=== PATIENT | male | born 1940 | race Caucasian/White ===

== ENCOUNTER → 2018-03-07 13:59 | Outpatient (CLI) | payer MEDICARE, OTHER, SELFPAY ==
[2018-03-07 15:01] LABS: Absolute Lymphocyte Count 0.91 X10^3/ul (0.83-4.51); Absolute Neutrophil Count 5.5 X10^3/uL (2.0-7.7); Basophil# 0.02 X10^3/uL; Basophil% 0.3 % (0-1); Eosinophil# 0.04 X10^3/uL; Eosinophils% 0.6 % (0-5); Hematocrit 45.6 % (40-54); Lymphocyte # 0.91 X10^3/ul (4.0); Lymphocyte % 12.7 % (19-41); Mean Corp Hgb Conc 32.9 g/gl (32-36); Mean Corpuscular Hgb 30.5 pg (27.0-32.0); Mean Corpuscular Volume 92.9 fL (80-94); Mean Platelet Vol. 11.4 fl (6.2-12.0); Monocyte% 9.8 % (0-10); Neutrophil # 5.45 X10^3/uL (2.7-7.7); Neutrophil % 76.3 % (47-70); Platelet Count 172 K/mm3 (150-450); RBC Distribution Width CV 13.2 % (11.6-14.6); RBC Distribution Width SD 44.3 fl (35.1-43.9); Red Blood Count 4.91 M/mm3 (4.6-6.2); White Blood Count 7.1 K/mm3 (4.4-11.0)
[2018-03-07 15:02] LABS: POSITIVE COUNT NO; POSITIVE DIFFERENTIAL NO; POSITIVE MORPHOLOGY NO
== END ==
PROVIDERS: Family Provider Family Medicine; PCP Family Medicine; Visit Provider Physician Assistant Medical
DX: S40.021A Contusion of right upper arm, initial encounter (principal); S40.022A Contusion of left upper arm, initial encounter
CPT/HCPCS: 36415; 85025

== ENCOUNTER 2018-04-16 19:15 | Inpatient (IN) | payer MEDICARE, OTHER, SELFPAY ==
[2018-04-16 19:23] VITALS: BMI 30.2
[2018-04-16 19:29] VITALS: BMI 30.2
[2018-04-16 19:34] VITALS: BP 121/66; PULSE 63; RESP 20; TEMP 37.4; O2SAT 97
--- NOTE | 2018-04-16 19:52 | HP.PCM_ITS ---
Problem List (1) Nephrolithiasis Status: Acute (2) Chronic systolic (congestive) heart failure Status: Chronic (3) Ischemic cardiomyopathy Status: Chronic Comment: EF 30-35% per echo and Muga OctoberNovember 2011; 45% per echo October 2012 (4) History of coronary artery bypass graft x 2 Status: Chronic Comment: ICD subsequently removed concomittently with CABG procedure and pericardial patch perforation repair on 01/14/2011 @ [facility], Dr. Brett Wilkins: STEARNS to LAD and SVG to OM 1 (5) BPH (benign prostatic hyperplasia) Status: Chronic (6) Hypertension Status: Chronic Qualifiers: Hypertension type: essential hypertension Qualified Code(s): I10 - Essential (primary) hypertension (7) COPD (chronic obstructive pulmonary disease) Status: Chronic (8) Hyperlipidemia Status: Chronic Qualifiers: Hyperlipidemia type: pure hypercholesterolemia Qualified Code(s): E78.00 - Pure hypercholesterolemia, unspecified; E78.0 - Pure hypercholesterolemia History of Present Illness Date of Admission: 04/16/18 Chief Complaint: Left flank pain The patient is a 77 year old M with a PMH as above, presenting from [facility] ER with a kidney stone. Yesterday he presented and had a CT abdomen which demonstrated a 6 mm stone on the left. He was sent home with expectant management, however today the pain worsened and he became diaphoretic and feverish so he returned to the ER and he was found to have a slight leukocytosis with a non-infectious UA. He was transferred here because there is no urology at [place] and he refused transfer to [place]. He states that he feels ok but still has significant flank pain on the left. 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 Onur Duarte @ [facility] BPH (benign prostatic hyperplasia) (Chronic) Hypertension (Chronic) Atherosclerotic heart disease of [place] coronary artery without angina pectoris (Chronic) History of CABG: STEARNS to LAD, SVG to OM 1 History of TIA (transient ischemic attack) (Chronic) Circa [id number], prior to CABG, etc. 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) I74.2 Left upper extremitiy 2010 after CABG Chronic systolic (congestive) heart failure (Chronic) I50.22 Ischemic cardiomyopathy (Chronic) I25.5 EF 30-35% per echo and Muga October and November 2011; 45%per echo October 2012 History of bacterial endocarditis (Chronic) Z86.79 Related to ICD wire: 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 Pt states I think it was really heat stroke COPD (chronic obstructive pulmonary disease) (Chronic) J44.9 Hyperlipidemia (Chronic) E78.5 Allergies No Known Allergies Allergy (Verified 03/07/18 13:20) Home Medications: Ambulatory Orders Medication Instructions Recorded Furosemide [Lasix] 20 mg PO DAILY PRN PRN 04/29/16 Lisinopril [Zestril] 10 mg PO QHS 04/29/16 Pravastatin [Pravachol] 40 mg PO QHS 04/29/16 acetaminophen 325 mg tablet 325 mg PO Q8H PRN PRN tab 11/08/17 levothyroxine 125 mcg tablet 125 mcg PO DAILY 11/08/17 nitroglycerin 0.4 mg sublingual 0.4 mg SUBLINGUAL Q5-15M PRN 11/08/17 tablet Amiodarone HCl 200 mg PO DAILY 04/16/18 Warfarin Sodium [Coumadin] 1.5 mg PO DINNER 04/16/18 Surgical History: Surgical History (Last Updated 03/07/18 @ 13:21 by Juanis Land) History of coronary artery bypass graft x 2 (Chronic) Z95.1 ICD subsequently removed concomittently with CABG procedure and pericardial patch perforation repair on 01/14/2011 @ [facility], Dr. Brett Wilkins: STEARNS to LAD and SVG to OM 1 History of right and left heart catheterization (Chronic) Z98.890 12/13/[address] Onur Duarte @ [facility] History of tonsillectomy Z90.89 Lives: Spouse/ Significant Other Smoking Status: Former smoker Alcohol: None Drugs: None - *Family History Maternal Family History: Family History (Last Updated 03/07/18 @ 13:22 by Juanis Land) Father Colon cancer Mother Myocardial infarction CAD (coronary artery disease) Brother CAD (coronary artery disease) Myocardial infarction Brother CAD (coronary artery disease) Myocardial infarction Review of Systems Constitutional: Reports: Chills, Fever. Denies: Anorexia, Weight Change HEENT: Denies: Head Aches, Sinus Congestion, Sinus Drainage Cardiovascular: Denies: Chest Pain, Palpitations Respiratory: Denies: Cough, Shortness of breath at rest, Sputum production Gastrointestinal: Reports: - - Left flank pain. Denies: Abdominal Pain, Nausea , Vomiting Genitourinary: Denies: Dysuria Musculoskeletal: Denies: Joint Pain, Joint Tenderness Skin: Denies: Rash, Wounds Neurological: Denies: Numbness, Tingling, Focal weakness Psychiatric: Denies: Anxiety, Depression Hematologic/ Lymphatic: Denies: Easy Bruising, Easy Bleeding VTE Information - Inpt Only VTE Present on Admission: No Patient Problems: Active and Suspected Problems (Last Updated 12/13/17 @ 11:41 by Manuela Tena) Nephrolithiasis (Acute) - Physical Exam General: Alert, Oriented x3, Cooperative, No apparent distress HEENT: Atraumatic, PERRLA, EOMI, Normocephalic Oral: Dry Mucosa Neck: Supple, No JVD Lungs: Clear to auscultation, Normal air movement, No rhonchi, No wheeze, No rales Cardiovascular: Regular rate, Regular Rhythm, Normal S1, Normal S2, No murmurs Abdomen: Soft, Non Tender, Non-Distended, No Hepato-splenomegaly, - - left CVA tenderness Extremities: No edema, Capillary Refill Less than 3 Seconds Skin: No rashes, No breakdown Musculoskeletal: No Tenderness to Palpation of Joints or Extremities Neurological: Neuro grossly intact, Sensory exam intact to light touch and pain Psych/Mental Status: Normal Affect, Appropriate Vital Signs Temp Pulse Resp BP Pulse Ox 99.4 F H 63 20 H 121/66 H 97 04/16/18 19:34 04/16/18 19:34 04/16/18 19:34 04/16/18 19:34 04/16/18 19:34 Oxygen Delivery Method Room Air Weight: 187 lb 6.4 oz Body Mass Index (BMI) 30.2 Assessment/Plan All Active Problems (Last Updated 12/13/17 @ 11:41 by Manuela Tena) Nephrolithiasis (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 Left Nephrolithiasis - Will start on flomax and IVF - Pain control - c/s to Urology - Given he is afebrile and his UA is clean, will hold abx for now 2. CAD s/p CABG/chronic sCHF/HTN - Currently stable, will gently hydrate - c/w his home medications, hold his lasix while hydrating 3. LUE DVT history - C/w coumadin and monitor INR DVT: Coumadin Diet: Cardiac Code Visit Inpatient E&M: 69242 Init Hosp L3
[2018-04-16] MEDS: 0.9% Normal Saline 1,000 ML 100 ML IV (20:18)
[2018-04-16] MEDS: Pravastatin 40 MG Tablet PO (22:53)
[2018-04-16] MEDS: Lisinopril 10 MG Tablet PO (23:14)
[2018-04-16 23:29] VITALS: BP 120/55; PULSE 59; RESP 18; TEMP 36.6; O2SAT 98
[2018-04-17] VITALS (11 sets, daily range): BP systolic 132–150; BP diastolic 60–75; PULSE 53–57; RESP 16–18; TEMP 36.1–37.1; O2SAT 94–99; BMI 30.2
[2018-04-17] MEDS: 0.9% Normal Saline 1,000 ML 100 ML IV ×2 (05:21→13:01)
[2018-04-17] MEDS: Levothyroxine 125 MCG Tablet PO (05:21)
[2018-04-17 06:25] LABS: Absolute Neutrophil Count 4.1 X10^3/uL (2.0-7.7); Basophil# 0.01 X10^3/uL; Basophil% 0.2 % (0-1); Eosinophil# 0.05 X10^3/uL; Eosinophils% 0.8 % (0-5); Hematocrit 37.2 % (40-54); Lymphocyte % 16.7 % (19-41); Mean Corp Hgb Conc 32.3 g/gl (32-36); Mean Platelet Vol. 11.6 fl (6.2-12.0); Monocyte% 13.4 % (0-10); Neutrophil # 4.11 X10^3/uL (2.7-7.7); Neutrophil % 68.7 % (47-70); Platelet Count 109 K/mm3 (150-450); RBC Distribution Width SD 43.1 fl (35.1-43.9)
[2018-04-17 06:35] LABS: POSITIVE COUNT NO; POSITIVE DIFFERENTIAL NO; POSITIVE MORPHOLOGY NO
[2018-04-17 06:36] LABS: Anion Gap 8 (5-15); BUN 27 mg/dL (7-18); BUN/Creat Ratio 14.2 RATIO (10-20); Calcium,Total 7.8 mg/dL (8.5-10.1); Chloride 110 mmol/L (98-107); EST Glomerular Filtration Rate 37 mL/min (>60); Est Glom Filt Rate - Afr Amer 44 mL/min (>60); Estimated Creatinine Clearance 28.45 ml/min; Glucose 87 mg/dL (74-106); Potassium 4.4 mmol/L (3.5-5.1); Sodium Level 142 mmol/L (136-145)
[2018-04-17 06:42] LABS: International Normalized Ratio 2.2; Prothrombin Time (Protime)PT. 24.9 SECONDS (11.7-14.9)
--- NOTE | 2018-04-17 07:44 | RAD_ITS ---
STUDY: X-RAY - ABDOMEN/PELVIS REASON FOR EXAM: Male, 77 years old. Left-sided stone. TECHNIQUE: Two AP supine views of the abdomen and pelvis. COMPARISON: None. FINDINGS: Mild degree of increased markings at the lung bases suggestive of atelectasis and/or scarring. There is a moderate amount of colonic fecal material. There is a 3.4 mm calcification in the left hemipelvis. This may represent a distal left ureteral calculus at the ureterovesical junction. Normal soft tissue structures. There are diffuse degenerative changes of the visualized lumbar spine. RAD/Abdomen Single View IMPRESSION: 3.4 mm rounded calcific density in the left hemipelvis as described. This may represent a small calculus at the ureterovesical junction. Electronically Signed: Austen Wheat MD at 8:57 EDT Tel [phone], Service support ,
--- NOTE | 2018-04-17 07:44 | PCM.CONS.U ---
Problem List (1) Nephrolithiasis Status: Acute Comment: left side Reason for Consult Date of Consultation: 04/17/18 Reason for Consultation: left kidney stone. History of Present Illness: The patient is a 77 year old male who presented to the [facility] with kidney stone on the left side, patient was transferred to [facility] for further care. He is clinically stable complains of pain on the left side and pain radiating down to his groin, I have to review the CAT scan from the outside hospital, plan to get a KUB this morning and then plan for intervention later today. 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 (see CABG) History of right and left heart catheterization (Chronic) 12/13/[address] Onur Duarte @ [facility] BPH (benign prostatic hyperplasia) (Chronic) Hypertension (Chronic) Atherosclerotic heart disease of [place] coronary artery without angina pectoris (Chronic) History of CABG: STEARNS to LAD, SVG to OM 1 History of TIA (transient ischemic attack) (Chronic) Circa [id number], prior to CABG, etc. 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 (see CABG) BPH (benign prostatic hyperplasia) (Chronic) N40.0 Hypertension (Chronic) I10 Atherosclerotic heart disease of [place] coronary artery without angina pectoris (Chronic) I25.10 History of CABG: STEARNS to LAD, SVG to OM 1 History of TIA (transient ischemic attack) (Chronic) Z86.73 Circa 5858-8749, prior to CABG, etc. Pt states I think it was really heat stroke COPD (chronic obstructive pulmonary disease) (Chronic) J44.9 Hyperlipidemia (Chronic) E78.5 Allergies No Known Allergies Allergy (Verified 03/07/18 13:20) Home Medications: Ambulatory Orders Medication Instructions Recorded Furosemide [Lasix] 20 mg PO DAILY PRN PRN 04/29/16 Lisinopril [Zestril] 10 mg PO QHS 04/29/16 Pravastatin [Pravachol] 40 mg PO QHS 04/29/16 acetaminophen 325 mg tablet 325 mg PO Q8H PRN PRN tab 11/08/17 levothyroxine 125 mcg tablet 125 mcg PO DAILY 11/08/17 nitroglycerin 0.4 mg sublingual 0.4 mg SUBLINGUAL Q5-15M PRN 11/08/17 tablet Amiodarone HCl 200 mg PO DAILY 04/16/18 Warfarin Sodium [Coumadin] 1.5 mg PO DINNER 04/16/18 Surgical History: Surgical History (Last Updated 03/07/18 @ 13:21 by Juanis Land) History of coronary artery bypass graft x 2 (Chronic) Z95.1 ICD subsequently removed concomittently with CABG procedure and pericardial patch perforation repair on 01/14/2011 @ [facility], Dr. Brett Wilkins: STEARNS to LAD and SVG to OM 1 History of right and left heart catheterization (Chronic) Z98.890 12/13/[address] Onur Duarte @ [facility] History of tonsillectomy Z90.89 Surgical History: noncontributory Psychiatric History: No pertinent psych hx Lives: Spouse/ Significant Other Smoking Status: Former smoker Alcohol: None Drugs: None - *Family History Maternal Family History: Family History (Last Updated 03/07/18 @ 13:22 by Juanis Land) Father Colon cancer Mother Myocardial infarction CAD (coronary artery disease) Brother CAD (coronary artery disease) Myocardial infarction Brother CAD (coronary artery disease) Myocardial infarction Review of Systems Constitutional: Denies: Chills, Fever, Weight Change HEENT: Denies: Head Aches, Sinus Congestion, Sinus Drainage Cardiovascular: Denies: Chest Pain, Palpitations Respiratory: Denies: Cough, Shortness of breath at rest, Sputum production Gastrointestinal: Denies: Abdominal Pain, Nausea, Vomiting Genitourinary: Denies: Dysuria Musculoskeletal: Denies: Joint Pain, Joint Tenderness Skin: Denies: Rash, Wounds Neurological: Denies: Numbness, Tingling, Focal weakness Psychiatric: Denies: Anxiety, Depression, Homicidal Ideations, Suicidal Ideations Hematologic/ Lymphatic: Denies: Easy Bruising, Easy Bleeding Physical Exam - Physical Exam Vital Signs Temp 98.7 F 04/17/18 05:19 Pulse 55 L 04/17/18 05:19 Resp 18 04/17/18 05:19 BP 132/60 H 04/17/18 05:19 Pulse Ox 94 04/17/18 05:19 Intake & Output 04/15/18 04/16/18 04/17/18 23:59 23:59 23:59 Intake Total 995 / 995 Output Total 1550 / 1550 Balance -555 / -555 Weight: 85.003 kg 84.4 kg Intake: Oral 100 / 100 IV fluid/meds 895 / 895 Output: Urine 625 / 625 #2 Urine 925 / 925 Other: Number of Voids 2 General: Alert, Oriented x3 HEENT: Atraumatic Oral: Moist Mucosa Neck: Supple Lungs: Normal air movement Cardiovascular: Regular rate, Regular Rhythm Abdomen: Soft, Obese Rectal: Exam deferred Laboratory Tests Past 24 Hrs 04/17/18 04/17/18 04/17/18 05:48 05:48 05:48 WBC 6.0 RBC 4.00 L Hgb 12.0 L Hct 37.2 L MCV 93.0 MCH 30.0 MCHC 32.3 RDW 13.0 RDW Differential 43.1 Plt Count 109 L MPV 11.6 Immature Gran % (Auto) 0.200 Neut % (Auto) 68.7 Lymph % (Auto) 16.7 L [place] % (Auto) 13.4 H Eos % (Auto) 0.8 Baso % (Auto) 0.2 Absolute Neuts (auto) 4.1 Absolute Lymphs (auto) 1.00 Total Counted Not Reportable PT 24.9 H INR 2.2 Sodium 142 Potassium 4.4 Chloride 110 H Carbon Dioxide 24.0 Anion Gap 8 BUN 27 H Creatinine 1.90 H Estim Creat Clear Calc 28.45 Est GFR (MDRD) Af Amer 44 L Est GFR (MDRD) Non-Af 37 L BUN/Creatinine Ratio 14.2 Glucose 87 Calcium 7.8 L Assessment/Plan All Active Problems (Last Updated 12/13/17 @ 11:41 by Manuela Tena) Nephrolithiasis (Acute) USP (current) use of anticoagulants (Acute) Apical mural thrombus (Acute) 77-year-old male with multiple medical problems including cardiac problems which are relatively stable. Plan to proceed with cystoscopy possible ureteroscopy and stent placement today in the operating room. Will check a KUB this morning.
--- NOTE | 2018-04-17 07:47 | CON.PCM_ITS ---
Problem List (1) Nephrolithiasis Status: Acute Comment: left side Reason for Consult Date of Consultation: 04/17/18 Reason for Consultation: left kidney stone. History of Present Illness: The patient is a 77 year old male who presented to the [facility] with kidney stone on the left side, patient was transferred to [facility] for further care. He is clinically stable complains of pain on the left side and pain radiating down to his groin, I have to review the CAT scan from the outside hospital, plan to get a KUB this morning and then plan for intervention later today. 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 Onur Duarte @ [facility] BPH (benign prostatic hyperplasia) (Chronic) Hypertension (Chronic) Atherosclerotic heart disease of [place] coronary artery without angina pectoris (Chronic) History of CABG: STEARNS to LAD, SVG to OM 1 History of TIA (transient ischemic attack) (Chronic) Circa [id number], prior to CABG, etc. 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) I74.2 Left upper extremitiy 2010 after CABG Chronic systolic (congestive) heart failure (Chronic) I50.22 Ischemic cardiomyopathy (Chronic) I25.5 EF 30-35% per echo and Muga October and November 2011; 45%per echo October 2012 History of bacterial endocarditis (Chronic) Z86.79 Related to ICD wire: 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 Pt states I think it was really heat stroke COPD (chronic obstructive pulmonary disease) (Chronic) J44.9 Hyperlipidemia (Chronic) E78.5 Allergies No Known Allergies Allergy (Verified 03/07/18 13:20) Home Medications: Ambulatory Orders Medication Instructions Recorded Furosemide [Lasix] 20 mg PO DAILY PRN PRN 04/29/16 Lisinopril [Zestril] 10 mg PO QHS 04/29/16 Pravastatin [Pravachol] 40 mg PO QHS 04/29/16 acetaminophen 325 mg tablet 325 mg PO Q8H PRN PRN tab 11/08/17 levothyroxine 125 mcg tablet 125 mcg PO DAILY 11/08/17 nitroglycerin 0.4 mg sublingual 0.4 mg SUBLINGUAL Q5-15M PRN 11/08/17 tablet Amiodarone HCl 200 mg PO DAILY 04/16/18 Warfarin Sodium [Coumadin] 1.5 mg PO DINNER 04/16/18 Surgical History: Surgical History (Last Updated 03/07/18 @ 13:21 by Juanis Land) History of coronary artery bypass graft x 2 (Chronic) Z95.1 ICD subsequently removed concomittently with CABG procedure and pericardial patch perforation repair on 01/14/2011 @ [facility] main [facility], Dr. Brett Wilkins: STEARNS to LAD and SVG to OM 1 History of right and left heart catheterization (Chronic) Z98.890 12/13/[address] Onur Duarte @ [facility] History of tonsillectomy Z90.89 Surgical History: noncontributory Psychiatric History: No pertinent psych hx Lives: Spouse/ Significant Other Smoking Status: Former smoker Alcohol: None Drugs: None - *Family History Maternal Family History: Family History (Last Updated 03/07/18 @ 13:22 by Juanis Land) Father Colon cancer Mother Myocardial infarction CAD (coronary artery disease) Brother CAD (coronary artery disease) Myocardial infarction Brother CAD (coronary artery disease) Myocardial infarction Review of Systems Constitutional: Denies: Chills, Fever, Weight Change HEENT: Denies: Head Aches, Sinus Congestion, Sinus Drainage Cardiovascular: Denies: Chest Pain, Palpitations Respiratory: Denies: Cough, Shortness of breath at rest, Sputum production Gastrointestinal: Denies: Abdominal Pain, Nausea, Vomiting Genitourinary: Denies: Dysuria Musculoskeletal: Denies: Joint Pain, Joint Tenderness Skin: Denies: Rash, Wounds Neurological: Denies: Numbness, Tingling, Focal weakness Psychiatric: Denies: Anxiety, Depression, Homicidal Ideations, Suicidal Ideations Hematologic/ Lymphatic: Denies: Easy Bruising, Easy Bleeding Physical Exam - Physical Exam Vital Signs Temp 98.7 F 04/17/18 05:19 Pulse 55 L 04/17/18 05:19 Resp 18 04/17/18 05:19 BP 132/60 H 04/17/18 05:19 Pulse Ox 94 04/17/18 05:19 Intake & Output 04/15/18 04/16/18 04/17/18 23:59 23:59 23:59 Intake Total 995 / 995 Output Total 1550 / 1550 Balance -555 / -555 Weight: 85.003 kg 84.4 kg Intake: Oral 100 / 100 IV fluid/meds 895 / 895 Output: Urine 625 / 625 #2 Urine 925 / 925 Other: Number of Voids 2 General: Alert, Oriented x3 HEENT: Atraumatic Oral: Moist Mucosa Neck: Supple Lungs: Normal air movement Cardiovascular: Regular rate, Regular Rhythm Abdomen: Soft, Obese Rectal: Exam deferred Laboratory Tests Past 24 Hrs 04/17/18 04/17/18 04/17/18 05:48 05:48 05:48 WBC 6.0 RBC 4.00 L Hgb 12.0 L Hct 37.2 L MCV 93.0 MCH 30.0 MCHC 32.3 RDW 13.0 RDW Differential 43.1 Plt Count 109 L MPV 11.6 Immature Gran % (Auto) 0.200 Neut % (Auto) 68.7 Lymph % (Auto) 16.7 L [place] % (Auto) 13.4 H Eos % (Auto) 0.8 Baso % (Auto) 0.2 Absolute Neuts (auto) 4.1 Absolute Lymphs (auto) 1.00 Total Counted Not Reportable PT 24.9 H INR 2.2 Sodium 142 Potassium 4.4 Chloride 110 H Carbon Dioxide 24.0 Anion Gap 8 BUN 27 H Creatinine 1.90 H Estim Creat Clear Calc 28.45 Est GFR (MDRD) Af Amer 44 L Est GFR (MDRD) Non-Af 37 L BUN/Creatinine Ratio 14.2 Glucose 87 Calcium 7.8 L Assessment/Plan All Active Problems (Last Updated 12/13/17 @ 11:41 by Manuela Tena) Nephrolithiasis (Acute) residential (current) use of anticoagulants (Acute) Apical mural thrombus (Acute) 77-year-old male with multiple medical problems including cardiac problems which are relatively stable. Plan to proceed with cystoscopy possible ureteroscopy and stent placement today in the operating room. Will check a KUB this morning.
[2018-04-17] MEDS: Lidocaine Jelly 2% 20 ML Syringe (URO-JET) 20 APPLIC (12:30)
--- NOTE | 2018-04-17 12:38 | PCM.OPRPT ---
Problem List (1) Nephrolithiasis Status: Acute Comment: left side Report of Operation Date of Procedure: 04/17/18 Pre-Operative Diagnosis: left ureteral calculi with high-grade obstruction Post-Operative Diagnosis: Same Surgery/Procedure Performed:: Cystoscopy, left artery Polygram, left stent placement Description of Surgical Findings:: 77-year-old male who presented to the hospital with obstructing stone in the left ureter was admitted for pain control today when taken to surgery for cystoscopy and left stent placement he does have an elevated INR of 2.2 is on Coumadin for heart problems. 77-year-old male taken back to the operating room after smooth induction of anesthesia with MAC local he was placed in dorsolithotomy position the penis testicles are prepped and draped in usual sterile fashion, infiltrated the urethra with lidocaine jelly went into the bladder with a 21 Marshallese rigid cystourethroscope the entire length the urethra is normal the sphincter is normal the bladder was normal the prostate slightly enlarged with bilateral hypertrophy, the bladder trigone is normal left and right ureteral orifice was normal and identified, no tumors or stones seen within the bladder. I then cannulated the left ureteral orifice with a Glidewire and over the Glidewire advanced a Pollack catheter performed a retrograde pyelogram could see the left kidney and delineated the anatomy of the left kidney could not really identify the stone. I then advanced a wire through the top Pollack catheter up into the left kidney and then over the wire I placed a stent 6 Marshallese by 26 cm stent, I gave the stent coiled in the kidney and bladder good position I emptied the bladder patient anesthetic was reversed taken taken back to PACU good condition plan is to bridge him off his Coumadin and come back next week for ureteroscopy and laser. Type of Anesthesia:: Local MAC Drains: 6fr x 26 cm - Admit VTE Documentation VTE Present on Admission: No VTE Mechan Device Prophylaxis: SCD's
[2018-04-17] MEDS: Amiodarone 200 MG Tablet PO (13:46)
--- NOTE | 2018-04-17 14:17 | CASEMGMT ---
RN CM Assessment completed. See Link -DC Plan, home. can assist with any transportation and care needs. Gideon TANN RN ACM
--- NOTE | 2018-04-17 14:32 | PCM.DC ---
- Discharge Diagnoses Current Active Problems: Current Active and Chronic Problems (Last Updated 12/13/17 @ 11:41 by Manuela Tena) Nephrolithiasis (Acute) left side You will use the following diet at home:: Calorie/Carbohydrate Controlled (specify 1200, 1400, etc) Discharge Activity: Return to Normal Activity, May not drive while taking narcotic pain medications. Call your doctor if you observe: Fever of 101 or Higher, Inability to urinate, Fainting spells, Chest pain Additional Instructions: Patient will need definitive lithotripsy for left ureteral stone until he passes spontaneously. Follows Dr. Malone for bridging Lovenox treatment in preparation for lithotripsy in 1 week Allergies/Adverse Reactions: Allergies No Known Allergies Allergy (Verified 03/07/18 13:20) Medications to take at Discharge Furosemide [Lasix] 20 mg PO DAILY PRN PRN 04/29/16 Lisinopril [Zestril] 10 mg PO QHS 04/29/16 Pravastatin [Pravachol] 40 mg PO QHS 04/29/16 acetaminophen 325 mg tablet 325 mg PO Q8H PRN PRN tab 11/08/17 levothyroxine 125 mcg tablet 125 mcg PO DAILY 11/08/17 nitroglycerin 0.4 mg sublingual tablet 0.4 mg SUBLINGUAL Q5-15M PRN 11/08/17 Amiodarone HCl 200 mg PO DAILY 04/16/18 Warfarin Sodium [Coumadin] 1.5 mg PO DINNER 04/16/18 Primary Care Physician: Nelli Hairston DO [Primary Care Provider] - Please follow up with your Primary Care Physician in: in 1-2 week Test Results: Test results from this visit will be discussed in further detail at your follow-up appointment, if applicable. Please Follow Up With: Parker Solis MD When: in 1 week to schedule for definitive procedure Please Follow Up With: Brayden Malone MD When: as scheduled
--- NOTE | 2018-04-17 14:35 | DCINST_ITS ---
- Discharge Diagnoses Current Active Problems: Current Active and Chronic Problems (Last Updated 12/13/17 @ 11:41 by Manuela Tena ) Nephrolithiasis (Acute) left side You will use the following diet at home:: Calorie/Carbohydrate Controlled ( specify 1200, 1400, etc) Discharge Activity: Return to Normal Activity, May not drive while taking narcotic pain medications. Call your doctor if you observe: Fever of 101 or Higher, Inability to urinate, Fainting spells, Chest pain Additional Instructions: Patient will need definitive lithotripsy for left ureteral stone until he passes spontaneously. Follows Dr. Malone for bridging Lovenox treatment in preparation for lithotripsy in 1 week Allergies/Adverse Reactions: Allergies No Known Allergies Allergy (Verified 03/07/18 13:20) Medications to take at Discharge Furosemide [Lasix] 20 mg PO DAILY PRN PRN 04/29/16 Lisinopril [Zestril] 10 mg PO QHS 04/29/16 Pravastatin [Pravachol] 40 mg PO QHS 04/29/16 acetaminophen 325 mg tablet 325 mg PO Q8H PRN PRN tab 11/08/17 levothyroxine 125 mcg tablet 125 mcg PO DAILY 11/08/17 nitroglycerin 0.4 mg sublingual tablet 0.4 mg SUBLINGUAL Q5-15M PRN 11/08/17 Amiodarone HCl 200 mg PO DAILY 04/16/18 Warfarin Sodium [Coumadin] 1.5 mg PO DINNER 04/16/18 Primary Care Physician: Nelli Hairston DO [Primary Care Provider] - Please follow up with your Primary Care Physician in: in 1-2 week Test Results: Test results from this visit will be discussed in further detail at your follow- up appointment, if applicable. Please Follow Up With: Parker Solis MD When: in 1 week to schedule for definitive procedure Please Follow Up With: Brayden Malone MD When: as scheduled
--- NOTE | 2018-04-17 14:35 | PCM.DC.SUM ---
Discharge Date and Diagnosis - Problem List Patient Problems: Active and Suspected Problems (Last Updated 12/13/17 @ 11:41 by Manuela Tena) Nephrolithiasis (Acute) left side Date of Admission: 04/16/18 Date of Discharge: 04/17/18 - Primary Discharge Diagnosis Active and Suspected Problems (Last Updated 12/13/17 @ 11:41 by Manuela Tena) Nephrolithiasis (Acute) left side Acute left proximal to mid ureter 6 mm ureteric stone. 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 Onur Duarte @ [facility] BPH (benign prostatic hyperplasia) (Chronic) Hypertension (Chronic) Atherosclerotic heart disease of [place] coronary artery without angina pectoris (Chronic) History of CABG: STEARNS to LAD, SVG to OM 1 History of TIA (transient ischemic attack) (Chronic) Circa [id number], prior to CABG, etc. Pt states I think it was really heat stroke COPD (chronic obstructive pulmonary disease) (Chronic) Hyperlipidemia (Chronic) Chronic mural thrombosis, on coumadin Hospital Course and Treatment Imaging Results: 04/17/18 07:44 KUB [Abdomen Single View] [RAD] Urgent 04/17/18 11:00 O.R. Fluoro for C-Arm [RAD] Urgent Summary of Care Provided: [] This is a 77-year-old gentleman with history of coronary artery status post two-vessel CABG, on Coumadin for mural thrombus earlier [address] Malone was admitted Directly on the floor from [facility] for left loin to groin pain suggestive of ureteric colic due to 6 mm left proximal to mid ureter. Patient had mild feverish and diaphoretic prior to going to ER. 2 times she was done which was negative which shows 0 WBC in 1 second 025 WBC. Mild leukocytosis 11.5 thousand probably inflammatory. Patient was admitted to regular [facility] floor. Started on IV fluid normal saline, Flomax and pain control. INR is therapeutic 2.2. Seen and examined General: Alert, Oriented x3, Cooperative, No apparent distress HEENT: Atraumatic, PERRLA, EOMI, Normocephalic Oral: Moist mucosa Neck: Supple, No JVD Lungs: Clear to auscultation, Normal air movement, No rhonchi, No wheeze, No rales Cardiovascular: Regular rate, Regular Rhythm, Normal S1, Normal S2, No murmurs Abdomen: Soft, Non Tender, Non-Distended, No Hepato-splenomegaly, Mild CVA tenderness Extremities: No edema, Capillary Refill Less than 3 Seconds Skin: No rashes, No breakdown Musculoskeletal: No Tenderness to Palpation of Joints or Extremities Neurological: Neuro grossly intact, Sensory exam intact to light touch and pain Psych/Mental Status: Normal Affect, Appropriate patient was taken to or for cystoscopy and left ureteric stent by Dr. Solis. He got Ancef before procedure. Patient currently does not have abdominal pain. He has oxycodone at home for pain control and also advised to take Tylenol for mild pain and fever. Dr. Solis wants to call him next week probably on Tuesday for definitive ureteroscopic and laser treatment. Once Dr. Malone to manage bridging Lovenox for the definitive procedure. Patient was discussed in detail and advised to call Dr. Solis office to reschedule his date of surgery and then call Dr. Malone for bridging Lovenox. Discharge meds reconciliation done. Follow-up instructions given. Total time spent, exact 35 minutes on discharge meds reconciliation, examination, review of imaging and blood test and discussion with the patient on follow-up instructions. Discharge Activity: Return to Normal Activity, May not drive while taking narcotic pain medications. Call your doctor if you observe: Fever of 101 or Higher, Inability to urinate, Fainting spells, Chest pain Home Medications: Medications to take at Discharge Furosemide [Lasix] 20 mg PO DAILY PRN PRN 04/29/16 Lisinopril [Zestril] 10 mg PO QHS 04/29/16 Pravastatin [Pravachol] 40 mg PO QHS 04/29/16 acetaminophen 325 mg tablet 325 mg PO Q8H PRN PRN tab 11/08/17 levothyroxine 125 mcg tablet 125 mcg PO DAILY 11/08/17 nitroglycerin 0.4 mg sublingual tablet 0.4 mg SUBLINGUAL Q5-15M PRN 11/08/17 Amiodarone HCl 200 mg PO DAILY 04/16/18 Warfarin Sodium [Coumadin] 1.5 mg PO DINNER 04/16/18 Primary Care Physician: Nelli Hairston DO [Primary Care Provider] - Please follow up with your Primary Care Physician in: in 1-2 week Please Follow Up With: Parker Solis MD When: in 1 week to schedule for definitive procedure Please Follow Up With: Brayden Malone MD When: as scheduled Medical Necessity - Tobacco Use Smoking Status: Former smoker Meaningful Use Info Meaningful Use Diagnoses (Choose all that apply): None applicable Code Visit Inpatient E&M: 28439 Disch Hosp
== END 2018-04-17 15:23 | disposition home or self-care (01) | DRG 694 ==
PROVIDERS: Family Medicine; Urology; Admitting Provider Internal Medicine; Visit Provider Internal Medicine
PROC: 0T778DZ Dilation of Left Ureter with Intraluminal Device, Via Natural or Artificial Opening Endoscopic (ICD-10-PCS; principal; 2018-04-17 12:50)
DX: N20.1 Calculus of ureter (principal); I50.22 Chronic systolic (congestive) heart failure; I25.10 Atherosclerotic heart disease of native coronary artery without angina pectoris; I11.0 Hypertensive heart disease with heart failure; Z23 Encounter for immunization; N40.0 Benign prostatic hyperplasia without lower urinary tract symptoms; E78.5 Hyperlipidemia, unspecified; I51.3 Intracardiac thrombosis, not elsewhere classified; Z86.718 Personal history of other venous thrombosis and embolism; Z79.01 Long term (current) use of anticoagulants; Z95.1 Presence of aortocoronary bypass graft; J44.9 Chronic obstructive pulmonary disease, unspecified; Z87.891 Personal history of nicotine dependence
CPT/HCPCS: 36415; 74018; 76000; 80048; 85025; 85610; J7030; 90686; C1769; C2617

== ENCOUNTER 2018-04-26 12:40 | Day surgery (SDC) | payer MEDICARE, OTHER, SELFPAY ==
[2018-04-26 12:55] LABS: Prothrombin Time Fingerstick 14.9 SEC (11.9-14.4)
[2018-04-26 13:18] VITALS: BP 176/66; PULSE 51; RESP 18; TEMP 36.6; O2SAT 100; BMI 28.8
[2018-04-26] MEDS: Cefazolin 2 GM in 0.9% Normal Saline 100 ML IV (14:56)
--- NOTE | 2018-04-26 15:35 | DCINST_ITS ---
Discharge Diet: Light diet - advance as tolerated Discharge Activity: Return to Normal Activity Allergies/Adverse Reactions: Allergies No Known Allergies Allergy (Verified 04/25/18 10:18) Medications to take at Discharge Furosemide [Lasix] 20 mg PO DAILY PRN PRN 04/29/16 Lisinopril [Zestril] 10 mg PO QHS 04/29/16 Pravastatin [Pravachol] 40 mg PO QHS 04/29/16 acetaminophen 325 mg tablet 325 mg PO Q8H PRN PRN tab 11/08/17 levothyroxine 125 mcg tablet 125 mcg PO DAILY 11/08/17 nitroglycerin 0.4 mg sublingual tablet 0.4 mg SUBLINGUAL Q5-15M PRN 11/08/17 Amiodarone HCl 200 mg PO DAILY 04/16/18 Warfarin Sodium [Coumadin] 1.5 mg PO DINNER 04/16/18 enoxaparin 80 mg/0.8 mL subcutaneous syringe 80 mg SC Q12H #6.4 ml 04/18/18 Primary Care Physician: Nelli Hairston DO [Primary Care Provider] - Test Results: Test results from this visit will be discussed in further detail at your follow- up appointment, if applicable. Please Follow Up With: Parker Solis MD When: in 2 weeks, please call to make an appointment.
--- NOTE | 2018-04-26 15:36 | PCM.OPRPT ---
Report of Operation Date of Procedure: 04/26/18 Pre-Operative Diagnosis: Left proximal ureteral stone Post-Operative Diagnosis: Same Surgery/Procedure Performed:: Cystoscopy and left stent removal, left ureteroscopy laser lithotripsy of stone Description of Surgical Findings:: 77-year-old male taken back to the operating room at the smooth induction of general anesthesia he was placed supine on the table in the dorsolithotomy position, the penis and testicles were prepped and draped in usual sterile fashion, went into the bladder with a 21 Korean rigid cystourethroscope. Once inside the bladder I grabbed the existing stent, pulled out the meatus, through the stent I advanced a wire all the way to the kidney, once a wire coiled in the kidney I pulled out the stent and then over the wire went in with a flexible ureteroscope. Once I got to the stone in the proximal ureter, then I pulled out the wire, and then we proceeded with laser lithotripsy. The stone was laser little tiny pieces that should all pass. At the stone was completely lasered a little tiny pieces I checked the upper pole, midpole, lower pole and no other major fragments were seen I worked my way all the way down the ureter no other major fragments are seen along the course of the ureter. The bladder was drained and the cystoscope was removed no catheter stent was placed patient anesthetic was reversed and he was taken to the PACU in good condition. Type of Anesthesia:: General Drains: no stent - Admit VTE Documentation VTE Present on Admission: No VTE Mechan Device Prophylaxis: SCD's VTE Pharm Prophylaxis ordered?: No Reason prophylaxis not ordered:: Treatment Not Indicated
[2018-04-26 15:40] VITALS: BP 158/72; BP 176/66; PULSE 62; RESP 16; TEMP 36.1; O2SAT 97
[2018-04-26 15:45] VITALS: BP 159/91; BP 176/66; PULSE 60; RESP 16; O2SAT 100
[2018-04-26 16:00] VITALS: BP 159/82; BP 176/66; PULSE 60; RESP 16; TEMP 35.9; O2SAT 99
[2018-04-26] MEDS: Enoxaparin 80 MG/0.8 ML Syringe SC (16:07)
[2018-04-26 16:25] VITALS: BP 176/66
== END 2018-04-26 16:54 | disposition home or self-care (01) ==
LOC: SDC 12:42 → AC 12:43
PROVIDERS: Referring Provider Urology; Visit Provider Urology
PROC: 0TJ98ZZ Inspection of Ureter, Via Natural or Artificial Opening Endoscopic (ICD-10-PCS; CPT 52352; principal; 2018-04-26 11:25)
DX: N20.2 Calculus of kidney with calculus of ureter (principal); I11.0 Hypertensive heart disease with heart failure; I50.22 Chronic systolic (congestive) heart failure; I82.722 Chronic embolism and thrombosis of deep veins of left upper extremity; I25.10 Atherosclerotic heart disease of native coronary artery without angina pectoris; I25.5 Ischemic cardiomyopathy; J44.9 Chronic obstructive pulmonary disease, unspecified; E06.9 Thyroiditis, unspecified; E78.5 Hyperlipidemia, unspecified; N40.0 Benign prostatic hyperplasia without lower urinary tract symptoms; I25.2 Old myocardial infarction; Z79.01 Long term (current) use of anticoagulants; Z79.899 Other long term (current) drug therapy; Z86.73 Personal history of transient ischemic attack (TIA), and cerebral infarction without residual deficits; Z95.1 Presence of aortocoronary bypass graft; Z87.891 Personal history of nicotine dependence
CPT/HCPCS: 00918; 52353; 36416; 85610; J7120; C1769; J2405

== ENCOUNTER → 2018-05-04 15:59 | Outpatient (CLI) | payer MEDICARE, OTHER, SELFPAY ==
[2018-05-04 16:30] LABS: Prothrombin Time Fingerstick 13.9 SEC (11.9-14.4)
== END ==
PROVIDERS: Referring Provider Internal Medicine Cardiovascular Disease; Visit Provider Internal Medicine Cardiovascular Disease
DX: I25.10 Atherosclerotic heart disease of native coronary artery without angina pectoris (principal)
CPT/HCPCS: 36416; 85610

== ENCOUNTER → 2018-05-16 08:08 | Outpatient (CLI) | payer MEDICARE, OTHER, SELFPAY ==
--- NOTE | 2018-05-16 08:47 | ECHOD_ITS ---
Reason For Study: CAD/ASHD Procedure This was a 2D Doppler, Color Flow transthoracic echocardiogram. The study was technically difficult. Exam performed in department. Left Ventricle Severely dilated left ventricle. 2D echocardiographic images appearing c/w a left ventricular apical thrombus. Moderately severe segmental systolic dysfunction (see wall motion). The estimated ejection fraction is 30 %. Infero-Basal: Severely Hypokinetic. Basal inferoseptal: Severely Hypokinetic. Basal anteroseptal: Hypokinetic. Mid-Anterior : Hypokinetic. Mid-Lateral : Hypokinetic. Mid-Posterior: Severely Hypokinetic. Mid-Inferior: Severely Hypokinetic. Mid- inferoseptal : Severly Hypokinetic. Mid-anteroseptal : Severely Hypokinetic. [place] : Akinetic. Right Ventricle Normal RV size. Normal systolic function. Atria The left atrium is moderately enlarged. Normal right atrium. No doppler evidence for ASD. Mitral Valve There is no mitral annular calcification. Mild diffuse mitral valve thickening. Mild papillary muscle dysfunction of the mitral valve. Mild-Moderate (1-2+) mitral valve insufficiency. Tricuspid Valve Normal tricuspid valve. Moderate (2+) tricuspid valve insufficiency. Right ventricular systolic pressure estimated to be 52 mmHg. Aortic Valve Trisinus/trileaflet aortic valve. Mild diffuse aortic valve thickening. Pulmonic Valve The pulmonic valve is not well visualized. Trivial pulmonic valve insufficiency. Great Vessels Normal sized aortic root. Pericardium/Pleural No pericardial effusion. MMode/2D Measurements & Calculations LVIDd: 6.8 cm IVSd: 0.80 cm Ao root diam: 3.2 cm LVIDs: 5.9 cm LVPWd: 0.75 cm LA dimension: 5.0 cm RVDd: 4.0 cm FS: 13.5 % LAV(MOD-bp): 97.9 ml LVAd ap4: 44.7 cm2 SV(MOD-sp4): 56.9 ml LAV(MOD-bp) Indexed: 51.4 ml/m2 EDV(MOD-sp4): 184.8 ml LAV(MOD-sp2): 90.0 ml EDV(sp4-el): 188.7 ml LAV(MOD-sp4): 89.0 ml LVAs ap4: 35.9 cm2 ESV(MOD-sp4): 127.8 ml ESV(sp4-el): 133.3 ml EF(MOD-sp4): 30.8 % EF(sp4-el): 29.4 % SV(sp4-el): 55.4 ml LA A4 area: 27.0 cm2 RA A4 area: 16.7 cm2 Time Measurements MV dec time: 0.22 sec Doppler Measurements & Calculations MV E max jorge luis: 97.7 cm/sec Lat Peak E' Jorge Luis: 7.4 cm/sec Med Peak E' Jorge Luis: 4.5 cm/sec MV A max jorge luis: 35.2 cm/sec E/E' lat: 13.1 E/E' med: 21.9 MV E/A: 2.8 Ao V2 max: 150.6 cm/sec LV V1 max: 76.2 cm/sec PA V2 max: 93.1 cm/sec Ao max P.1 mmHg LV V1 max P.3 mmHg PI end-d jorge luis: 115.6 cm/sec TR max jorge luis: 348.7 cm/sec TR max P.2 mmHg Interpretation Summary The study was technically difficult. Severely dilated left ventricle. Moderately severe segmental systolic dysfunction (see wall motion). The estimated ejection fraction is 30 %. The left atrium is moderately enlarged. Mild diffuse mitral valve thickening. Mild papillary muscle dysfunction of the mitral valve. Mild-Moderate (1-2+) mitral valve insufficiency. Moderate (2+) tricuspid valve insufficiency. Mild diffuse aortic valve thickening. Trivial pulmonic valve insufficiency. Right ventricular systolic pressure estimated to be 52 mmHg. Transmitral diastolic flow velocities suggest diastolic dysfunction (pseudonormal pattern). 2D echocardiographic images appearing c/w a left ventricular apical thrombus. Ordering Physician: Brayden Malone Referring Physician: DONY CALZADA Performed By: Mckayla Sweeney RDCS
--- NOTE | 2018-05-16 12:16 | PFT ---
INTRODUCTION: The patient is a 77-year-old male that presents for pulmonary function testing secondary to a diagnosis of high risk medication use. Respiratory therapy reports that the patient had difficulty comprehending test instructions with spirometry. Bronchodilators were used during testing. INTERPRETATION: Forced expiration spirometry demonstrates no evidence of a large airways obstructive ventilatory defect. There was a significant bronchodilator response noted in both FEV1 and FVC. Spirograms are of poor quality and terminate prior to 6 seconds, likely underestimating FVC. The respiratory flow volume loop is of similar poor quality. Body plethysmography was performed and reveals lung volumes to be at the lower limits of normal. Diffusing capacity by single breath CO is within normal limits at 85% of predicted. IMPRESSION: These pulmonary function studies only demonstrated the presence of a significant bronchodilator response and lung volumes at the lower limits of normal. However, results should be viewed with caution, as spirometry was not reproducible and the patient had difficulty comprehending test instructions.
== END ==
PROVIDERS: Referring Provider Internal Medicine Cardiovascular Disease; Visit Provider Internal Medicine Cardiovascular Disease
DX: I25.10 Atherosclerotic heart disease of native coronary artery without angina pectoris (principal); I25.5 Ischemic cardiomyopathy; I50.22 Chronic systolic (congestive) heart failure; I51.3 Intracardiac thrombosis, not elsewhere classified; Z95.1 Presence of aortocoronary bypass graft
CPT/HCPCS: 93306; 94060; 94726; 94729

== ENCOUNTER → 2018-08-03 09:20 | Outpatient (CLI) | payer MEDICARE, OTHER, SELFPAY ==
--- NOTE | 2018-08-03 09:23 | US_ITS ---
STUDY: SCROTUM ULTRASOUND REASON FOR EXAM: Male, 77 years old. Left-sided pain TECHNIQUE: Ultrasound evaluation of the scrotum was performed with color Doppler and static barraza-scale imaging. COMPARISON: None. FINDINGS: RIGHT TESTICLE INTRATESTICULAR: There is a normal size of the right testicle. The right testicle measures 2.5 x 1.6 x 2.1 cm. There is a homogenous echotexture. There is normal arterial and normal venous vascularity. There is no demonstrated right testicular mass or cyst. EXTRATESTICULAR: The epididymis is normal in size. The epididymis head measures 1.0 cm. There is normal vascularity of the epididymis. There is a 0.6 cm epididymal cyst There is a large hydrocele. There is no demonstrated varicocele. There is no demonstrated extratesticular mass or cyst. LEFT TESTICLE INTRATESTICULAR: There is a normal size of the left testicle. The left testicle measures 2.5 x 2.1 x 1.5 cm. There is a homogenous echotexture. There is normal arterial and normal venous vascularity. There is a 0.5 cm septated cyst, and a 0.3 cm simple cyst. EXTRATESTICULAR: The epididymis is normal in size. The epididymis head measures 0.9 cm. There is normal vascularity of the epididymis. There is an epididymal cyst. There is a large hydrocele. There is no demonstrated varicocele. There is no demonstrated extratesticular mass or cyst. US/Testicular with Arterial Flow IMPRESSION: No sonographic evidence of intratesticular mass, or torsion Subcentimeter left testicular cysts Bilateral epididymal cysts Large bilateral hydroceles Electronically Signed: Roderick Resendiz MD at 11:44 EST , Service support ,
== END ==
PROVIDERS: Referring Provider Urology; Visit Provider Urology
DX: Z86.79 Personal history of other diseases of the circulatory system (principal); R52 Pain, unspecified
CPT/HCPCS: 76870; 93976

== ENCOUNTER → 2018-12-05 13:19 | Outpatient (CLI) | payer MEDICARE, OTHER, SELFPAY ==
[2018-11-16 13:27] VITALS: BMI 29.5
--- NOTE | 2018-12-05 13:33 | ECHOD_ITS ---
Reason For Study: CHF Procedure This was a 2D Doppler, Color Flow transthoracic echocardiogram. The exam was of adequate technical quality. Exam performed in department. Left Ventricle Severely dilated left ventricle. Severe segmental systolic dysfunction (see wall motion). The estimated ejection fraction is 25 %. Anterio-Basal: Hypokinetic. Infero-Basal: Severely Hypokinetic. Basal inferoseptal: Severely Hypokinetic. Basal anteroseptal: Hypokinetic. Mid-Anterior : Hypokinetic. Mid-Lateral : Hypokinetic. Mid-Posterior: Severely Hypokinetic. Mid-Inferior: Severely Hypokinetic. Mid-inferoseptal : Severly Hypokinetic. Mid-anteroseptal : Severely Hypokinetic. [place] : Akinetic. Right Ventricle Normal RV size. Normal systolic function. Atria The left atrium is moderately enlarged. Normal right atrium. No doppler evidence for ASD. Mitral Valve There is no mitral annular calcification. Mild diffuse mitral valve thickening. Mild papillary muscle dysfunction of the mitral valve. Mild-Moderate (1-2+) mitral valve insufficiency. Tricuspid Valve Normal tricuspid valve. Moderate (2+) tricuspid valve insufficiency. Right ventricular systolic pressure estimated to be 84 mmHg. Aortic Valve Trisinus/trileaflet aortic valve. Mild diffuse aortic valve thickening. Trivial aortic valve insufficiency. Pulmonic Valve The pulmonic valve is not well visualized. Trivial pulmonic valve insufficiency. Great Vessels The aortic root is not well visualized. Pericardium/Pleural No pericardial effusion. MMode/2D Measurements & Calculations LVIDd: 6.7 cm IVSd: 0.70 cm LA dimension: 5.7 cm LVIDs: 5.8 cm LVPWd: 0.87 cm FS: 13.7 % LAV(MOD-bp): 84.9 ml LVAd ap4: 42.2 cm2 SV(MOD-sp4): 52.1 ml LAV(MOD-bp) Indexed: 44.5 ml/m2 EDV(MOD-sp4): 179.8 ml LAV(MOD-sp2): 85.6 ml EDV(sp4-el): 184.7 ml LAV(MOD-sp4): 83.9 ml LVAs ap4: 35.4 cm2 ESV(MOD-sp4): 127.8 ml ESV(sp4-el): 130.6 ml EF(MOD-sp4): 29.0 % EF(sp4-el): 29.3 % SV(sp4-el): 54.1 ml LA A4 area: 25.2 cm2 RA A4 area: 18.4 cm2 Time Measurements MV dec time: 0.16 sec Doppler Measurements & Calculations MV E max jorge luis: 105.7 cm/sec Lat Peak E' Jorge Luis: 7.6 cm/sec Med Peak E' Jorge Luis: 4.7 cm/sec MV A max jorge luis: 21.6 cm/sec E/E' lat: 14.0 E/E' med: 22.4 MV E/A: 4.9 MV V2 max: 110.2 cm/sec MV P1/2t max jorge luis: 112.4 cm/sec Ao V2 max: 105.7 cm/sec MV max P.9 mmHg MV P1/2t: 107.8 msec Ao max P.5 mmHg MV V2 mean: 52.4 cm/sec MV mean P.3 mmHg MV dec slope: 305.2 cm/sec2 MV V2 VTI: 40.8 cm MVA(P1/2t): 2.0 cm2 LV V1 max: 90.6 cm/sec MR max jorge luis: 570.4 cm/sec TR max jorge luis: 435.6 cm/sec LV V1 max P.3 mmHg MR max P.2 mmHg TR max P.9 mmHg MR mean jorge luis: 429.4 cm/sec MR mean P.1 mmHg MR VTI: 214.8 cm Interpretation Summary Severely dilated left ventricle. Severe segmental systolic dysfunction (see wall motion). The estimated ejection fraction is 25 %. The left atrium is moderately enlarged. Mild diffuse mitral valve thickening. Mild papillary muscle dysfunction of the mitral valve. Mild-Moderate (1-2+) mitral valve insufficiency. Moderate (2+) tricuspid valve insufficiency. Mild diffuse aortic valve thickening. Trivial aortic valve insufficiency. Trivial pulmonic valve insufficiency. Right ventricular systolic pressure estimated to be 84 mmHg. Transmitral diastolic flow velocities suggest diastolic dysfunction (pseudonormal pattern). 2D echocardiographic images appearing compatible with a left ventricular apical thrombus. Ordering Physician: Brayden Malone Referring Physician: Brayden Malone Performed By: Hermelindo Kearns RCS
[2018-12-05 13:36] LABS: Prothrombin Time Fingerstick 25.3 SEC (11.9-14.4)
== END ==
PROVIDERS: Referring Provider Internal Medicine Cardiovascular Disease; Visit Provider Internal Medicine Cardiovascular Disease
DX: I25.10 Atherosclerotic heart disease of native coronary artery without angina pectoris (principal); I25.5 Ischemic cardiomyopathy; I51.3 Intracardiac thrombosis, not elsewhere classified
CPT/HCPCS: 36416; 85610; 93306

== ENCOUNTER 2019-05-01 12:49 | Outpatient (RCR) | payer MEDICARE, OTHER, SELFPAY ==
[2018-11-16 13:27] VITALS: BMI 29.5
[2019-05-01 14:30] LABS: Prothrombin Time Fingerstick 29.5 SEC (11.9-14.4)
== END 2019-05-01 18:00 | disposition home or self-care (01) ==
LOC: LAB 12:49
PROVIDERS: Referring Provider Internal Medicine Cardiovascular Disease; Visit Provider Internal Medicine Cardiovascular Disease
DX: Z79.01 Long term (current) use of anticoagulants (principal); I51.3 Intracardiac thrombosis, not elsewhere classified
CPT/HCPCS: 36416; 85610

== ENCOUNTER → 2019-05-01 | Outpatient (CLI) | payer MEDICARE, OTHER, SELFPAY ==
[2019-05-01 13:24] VITALS: BMI 29.0
--- NOTE | 2019-05-01 14:40 | RAD_ITS ---
STUDY: X-RAY CHEST REASON FOR EXAM: Male, 78 years old. Amiodarone usage TECHNIQUE: PA and lateral views of the chest. COMPARISON: None. FINDINGS: In the region of the right hilum, there is questionable ill-defined masslike opacity measuring 2.6 x 2.7 cm. The lungs are clear and expanded. There is no demonstrated pleural abnormality. Sternal cerclage wires are present from a prior sternotomy. Normal visualized pulmonary arteries. Normal visualized aortic arch and descending thoracic aorta. Normal visualized thoracic spine. Normal visualized ribs, clavicles, and shoulders. There is no demonstrated abnormality of the visualized soft tissue structures of the upper abdomen. RAD/Chest PA and Lateral IMPRESSION: No acute cardiopulmonary disease. Questionable masslike opacity in the right hilar region. IV contrast enhanced CT chest recommended to further evaluate. Electronically Signed: Sonido Roe DO at 9:52 EDT Tel , Service support ,
== END | disposition home or self-care (01) ==
LOC: RAD 14:38
PROVIDERS: Family Provider Nurse Practitioner Primary Care; PCP Nurse Practitioner Primary Care; Referring Provider Nurse Practitioner Family; Visit Provider Nurse Practitioner Family
DX: Z79.899 Other long term (current) drug therapy (principal); I51.3 Intracardiac thrombosis, not elsewhere classified; Z79.01 Long term (current) use of anticoagulants
CPT/HCPCS: 36416; 71046; 85610

== ENCOUNTER → 2019-05-10 | Outpatient (CLI) | payer MEDICARE, OTHER, SELFPAY ==
[2019-05-01 13:24] VITALS: BMI 29.0
--- NOTE | 2019-05-10 13:17 | CT_ITS ---
STUDY: CT CHEST WITH CONTRAST REASON FOR EXAM: Male, 78 years old. Abnormal chest x-ray, masslike opacity in the right hilum RADIATION DOSAGE (If Supplied By Facility): CTDIvol = ( 22.32 ) mGy, DLP = ( 617.37 ) mGycm TECHNIQUE: Transaxial imaging was performed following intravenous administration of IV Isovue 300 75. Multiplanar coronal and sagittal images were reformatted. Individualized dose optimization techniques were used for this CT. COMPARISON: None. FINDINGS: There are calcified granulomata of the right upper lobe. There is no demonstrated pleural abnormality. There is mild cardiac enlargement. Sternal wires and mediastinal surgical clips compatible with prior CABG. Circumferential wall thickening of the thoracic esophagus but no associated mediastinal fat stranding. Normal hilar regions. Normal enhanced pulmonary arteries. Normal aorta arch and descending thoracic aorta. There are multi-level degenerative changes of the thoracic spine. There is increased density throughout the liver. Small simple cyst of the anterior right hepatic lobe as seen on image 89. Gallstones are noted. CT/Chest WITH Contrast IMPRESSION: 1. No hilar/pulmonary mass. 2. CABG 3. Circumferential wall thickening of the urinary bladder may suggest esophagitis. Recommend correlating with clinical symptoms. 4. Hyperdense liver with differential diagnosis of iron deposition, glycogen storage disease and medication (amiodarone). 5. Gallstones. Electronically Signed: Trell Yoo MD (Brooks) at 14:03 EDT , Service support ,
[2019-05-10 13:45] LABS: CREATININE FINGERSTICK 1.8 mg/dL (0.70-1.30)
== END | disposition home or self-care (01) ==
LOC: CT 13:16
PROVIDERS: Family Provider Nurse Practitioner Primary Care; PCP Nurse Practitioner Primary Care; Referring Provider Nurse Practitioner Family; Visit Provider Nurse Practitioner Family
DX: R93.89 Abnormal findings on diagnostic imaging of other specified body structures (principal); I25.10 Atherosclerotic heart disease of native coronary artery without angina pectoris; I25.5 Ischemic cardiomyopathy; Z95.1 Presence of aortocoronary bypass graft
CPT/HCPCS: 71260; Q9967

== ENCOUNTER 2019-06-07 14:30 | Outpatient (RCR) | payer MEDICARE, OTHER, SELFPAY ==
[2019-05-01 13:24] VITALS: BMI 29.0
== END 2019-06-07 18:00 | disposition home or self-care (01) ==
LOC: LAB 14:30
PROVIDERS: Family Provider Nurse Practitioner Primary Care; PCP Nurse Practitioner Primary Care; Referring Provider Internal Medicine Cardiovascular Disease; Visit Provider Internal Medicine Cardiovascular Disease
DX: Z79.01 Long term (current) use of anticoagulants (principal); I51.3 Intracardiac thrombosis, not elsewhere classified
CPT/HCPCS: 36416; 85610

== ENCOUNTER → 2019-06-07 | Outpatient (CLI) | payer MEDICARE, OTHER, SELFPAY ==
[2019-05-01 13:24] VITALS: BMI 29.0
--- NOTE | 2019-06-07 14:40 | PFTCOMP ---
COMPLETE PULMONARY FUNCTION TEST INTERPRETATION Brief HPI: Patient is an 78 year old male, currently under the care of Temo Agrawal, who presents to [facility] for complete pulmonary function tests secondary to diagnosis of high risk meds. Respiratory therapist reports good effort and reproducible results. Interpretation: Forced expiration spirometry shows no large airways obstructive ventilatory defect with an FEV1 of 80% predicted. There is no significant bronchodilator response by strict ATS criteria. Spirograms are of good quality and plateau normally. The respiratory flow volume loop shows a normal pattern. Lung volumes by body plethysmography show a decreased total lung capacity at 4.11 L, 76% predicted. All other lung volumes are reduced symmetrically. Diffusion capacity by carbon monoxide is normal at 111% predicted. The airway resistance is elevated. Compared to previous pulmonary function tests from 05/16/2018, there is been a significant improvement in FVC and DLCO by 33% and 34% respectively. Impression: Irreversible mild restrictive ventilatory defect with preserved diffusion capacity.
== END | disposition home or self-care (01) ==
LOC: PSN 12:50
PROVIDERS: Family Provider Nurse Practitioner Primary Care; PCP Nurse Practitioner Primary Care; Referring Provider Nurse Practitioner Family; Visit Provider Nurse Practitioner Family
DX: I51.3 Intracardiac thrombosis, not elsewhere classified (principal); I25.5 Ischemic cardiomyopathy; I25.10 Atherosclerotic heart disease of native coronary artery without angina pectoris; Z79.899 Other long term (current) drug therapy
CPT/HCPCS: 93308; 94060; 94726; 94729; Q9957; A4216; C8924

== ENCOUNTER 2019-08-20 14:23 | Outpatient (RCR) | payer MEDICARE, OTHER, SELFPAY ==
[2019-05-01 13:24] VITALS: BMI 29.0
[2019-07-30 16:11] LABS: Prothrombin Time Fingerstick 25.7 SEC (11.9-14.4)
[2019-08-20 14:35] LABS: Prothrombin Time Fingerstick 23.5 SEC (11.9-14.4)
[2019-08-20 16:16] LABS: PSA,Total- Diagnostic 3.52 ng/mL (0.0-4.0)
== END 2019-08-20 18:00 | disposition home or self-care (01) ==
LOC: LAB 14:23
PROVIDERS: Urology; Family Provider Nurse Practitioner Primary Care; PCP Nurse Practitioner Primary Care; Referring Provider Internal Medicine Cardiovascular Disease; Visit Provider Internal Medicine Cardiovascular Disease
DX: I51.3 Intracardiac thrombosis, not elsewhere classified (principal); N40.1 Benign prostatic hyperplasia with lower urinary tract symptoms; Z79.01 Long term (current) use of anticoagulants
CPT/HCPCS: 36415; 36416; 84153; 85610

== ENCOUNTER 2019-09-19 14:16 | Outpatient (RCR) | payer MEDICARE, OTHER, SELFPAY ==
[2019-05-01 13:24] VITALS: BMI 29.0
[2019-09-19 16:16] LABS: Prothrombin Time Fingerstick 24.8 SEC (11.9-14.4)
== END 2019-09-19 18:00 | disposition home or self-care (01) ==
LOC: LAB 14:16
PROVIDERS: Family Provider Nurse Practitioner Primary Care; PCP Nurse Practitioner Primary Care; Referring Provider Internal Medicine Cardiovascular Disease; Visit Provider Internal Medicine Cardiovascular Disease
DX: I51.3 Intracardiac thrombosis, not elsewhere classified (principal); Z79.01 Long term (current) use of anticoagulants
CPT/HCPCS: 36416; 85610

== ENCOUNTER 2019-11-21 13:03 | Outpatient (RCR) | payer MEDICARE, OTHER, SELFPAY ==
[2019-05-01 13:24] VITALS: BMI 29.0
[2019-10-26 10:11] LABS: Prothrombin Time Fingerstick 29.8 SEC (11.9-14.4)
[2019-11-21 13:15] LABS: Prothrombin Time Fingerstick 37.2 SEC (11.9-14.4)
== END 2019-11-22 18:00 | disposition home or self-care (01) ==
LOC: LAB 13:03
PROVIDERS: Family Provider Nurse Practitioner Primary Care; PCP Nurse Practitioner Primary Care; Referring Provider Internal Medicine Cardiovascular Disease; Visit Provider Internal Medicine Cardiovascular Disease
DX: I51.3 Intracardiac thrombosis, not elsewhere classified (principal); Z79.01 Long term (current) use of anticoagulants
CPT/HCPCS: 36416; 85610

== ENCOUNTER 2019-12-10 13:16 | Outpatient (RCR) | payer MEDICARE, OTHER, SELFPAY ==
[2019-11-21 11:29] VITALS: BMI 29.2
[2019-12-10 15:01] LABS: Prothrombin Time Fingerstick 24.1 SEC (11.9-14.4)
== END 2019-12-10 18:00 | disposition home or self-care (01) ==
LOC: LAB 13:16
PROVIDERS: Family Provider Nurse Practitioner Primary Care; PCP Nurse Practitioner Primary Care; Referring Provider Internal Medicine Cardiovascular Disease; Visit Provider Internal Medicine Cardiovascular Disease
DX: I51.3 Intracardiac thrombosis, not elsewhere classified (principal); Z79.01 Long term (current) use of anticoagulants
CPT/HCPCS: 36416; 85610

== ENCOUNTER → 2019-12-21 13:40 | Outpatient (CLI) | payer MEDICARE, OTHER, SELFPAY ==
[2019-11-21 11:29] VITALS: BMI 29.2
--- NOTE | 2019-12-21 13:46 | ECHOCS_ITS ---
Reason For Study: CAD/ASHD Procedure This was a 2D Doppler, Color Flow transthoracic echocardiogram. The study was technically difficult. Due to body habitus. Contrast injection was performed. Exam performed in department. Left Ventricle Severely dilated left ventricle. Severe segmental systolic dysfunction (see wall motion). The estimated ejection fraction is 25 %. Anterio-Basal: Hypokinetic. Infero-Basal: Hypokinetic. Basal inferoseptal: Hypokinetic. Basal anteroseptal: Hypokinetic. Mid-Anterior : Hypokinetic. Mid- Lateral : Hypokinetic. Mid-Posterior: Hypokinetic. Mid-Inferior: Akinetic. Mid-inferoseptal : Hypokinetic. Mid-anteroseptal : Hypokinetic. Anterior [place] : Akinetic. Inferior [place] : Dyskinetic. Lateral [place] : Akinetic. Septal [place] : Dyskinetic. Right Ventricle Normal RV size. Normal systolic function. Atria The left atrium is moderately enlarged. Normal right atrium. No doppler evidence for ASD. Mitral Valve There is no mitral annular calcification. Mild diffuse mitral valve thickening. Mild papillary muscle dysfunction of the mitral valve. Mild (1+) mitral valve insufficiency. Tricuspid Valve Normal tricuspid valve. Mild tricuspid valve insufficiency. Right ventricular systolic pressure estimated to be 34 mmHg. Aortic Valve Trisinus/trileaflet aortic valve. Mild focal aortic valve calcification. Pulmonic Valve The pulmonic valve is not well visualized. Trivial pulmonic valve insufficiency. Great Vessels Normal sized aortic root. Pericardium/Pleural No pericardial effusion. Medication 22 gauge I.V. with prn adaptor inserted into right arm. Diluted definity 3.0ml given slow IV push to enhance endocardial definition. MMode/2D Measurements & Calculations LVIDd: 6.9 cm IVSd: 0.77 cm Ao root diam: 3.5 cm LVIDs: 6.1 cm LVPWd: 0.89 cm LA dimension: 5.2 cm RVDd: 3.5 cm FS: 12.6 % LAV(MOD-bp): 98.6 ml LA A4 area: 28.7 cm2 LA dimension(2D): 5.2 cm LAV(MOD-bp) Indexed: 51.7 ml/m2 LAV(MOD-sp2): 94.0 ml LAV(MOD-sp4): 96.8 ml RA A4 area: 16.3 cm2 Time Measurements MV dec time: 0.19 sec Doppler Measurements & Calculations MV E max jorge luis: 92.2 cm/sec Lat Peak E' Jorge Luis: 6.8 cm/sec Med Peak E' Jorge Luis: 2.7 cm/sec MV A max jorge luis: 32.3 cm/sec E/E' lat: 13.6 E/E' med: 34.0 MV E/A: 2.8 Ao V2 max: 120.2 cm/sec LV V1 max: 95.7 cm/sec PA V2 max: 76.9 cm/sec Ao max P.8 mmHg LV V1 max P.7 mmHg TR max jorge luis: 275.9 cm/sec TR max P.5 mmHg Interpretation Summary The study was technically difficult. Contrast injection was performed. Severely dilated left ventricle. Severe segmental systolic dysfunction (see wall motion). The estimated ejection fraction is 25 %. The left atrium is moderately enlarged. Mild diffuse mitral valve thickening. Mild papillary muscle dysfunction of the mitral valve. Mild (1+) mitral valve insufficiency. Mild tricuspid valve insufficiency. Mild focal aortic valve calcification. Trivial pulmonic valve insufficiency. Right ventricular systolic pressure estimated to be 34 mmHg. Transmitral diastolic flow velocities suggest diastolic dysfunction (pseudonormal pattern). Comment: Based upon the 2D echocardiographic and contrast enhanced images obtained there appears to be findings compatible with a left ventricular apical thrombus, however, in comparison to the previous transthoracic echocardiogram from 06-07-2019 these findings appear to be less prominent at this time. Ordering Physician: Brayden Malone Referring Physician: Pal Yan Performed By: Delaney Rodney, RDCS, RVT
== END ==
PROVIDERS: PCP Nurse Practitioner Primary Care; Referring Provider Internal Medicine Cardiovascular Disease; Visit Provider Internal Medicine Cardiovascular Disease
DX: I25.10 Atherosclerotic heart disease of native coronary artery without angina pectoris (principal); I25.5 Ischemic cardiomyopathy; I51.3 Intracardiac thrombosis, not elsewhere classified; E78.00 Pure hypercholesterolemia, unspecified; I10 Essential (primary) hypertension; Z95.1 Presence of aortocoronary bypass graft; Z79.01 Long term (current) use of anticoagulants; Z79.899 Other long term (current) drug therapy
CPT/HCPCS: 93306; Q9957; A4216; C8929

== ENCOUNTER 2020-01-16 10:38 | Outpatient (RCR) | payer MEDICARE, OTHER, SELFPAY ==
[2019-11-21 11:29] VITALS: BMI 29.2
[2020-01-07 13:11] LABS: Prothrombin Time Fingerstick 19.5 SEC (11.9-14.4)
[2020-01-16 10:51] LABS: Prothrombin Time Fingerstick 25.1 SEC (11.9-14.4)
== END 2020-01-16 18:00 | disposition home or self-care (01) ==
LOC: LAB 10:38
PROVIDERS: Family Provider Nurse Practitioner Primary Care; PCP Nurse Practitioner Primary Care; Referring Provider Internal Medicine Cardiovascular Disease; Visit Provider Internal Medicine Cardiovascular Disease
DX: Z79.01 Long term (current) use of anticoagulants (principal)
CPT/HCPCS: 36416; 85610

== ENCOUNTER 2020-02-19 11:11 | Outpatient (RCR) | payer MEDICARE, OTHER, SELFPAY ==
[2020-01-16 09:58] VITALS: BMI 29.9
[2020-02-19 11:26] LABS: Prothrombin Time Fingerstick 26.9 SEC (11.9-14.4)
== END 2020-02-19 18:00 | disposition home or self-care (01) ==
LOC: LAB 11:11
PROVIDERS: Family Provider Nurse Practitioner Primary Care; PCP Nurse Practitioner Primary Care; Referring Provider Internal Medicine Cardiovascular Disease; Visit Provider Internal Medicine Cardiovascular Disease
DX: Z79.01 Long term (current) use of anticoagulants (principal)
CPT/HCPCS: 36415; 36416; 85610

== ENCOUNTER 2020-02-26 10:16 | Observation (INO) | payer MEDICARE, OTHER, SELFPAY ==
[2020-01-16 09:58] VITALS: BMI 29.9
[2020-02-26] VITALS (11 sets, daily range): BP systolic 131–176; BP diastolic 68–111; PULSE 43–54; RESP 13–18; TEMP 36.6–36.9; O2SAT 97–100; BMI 30.9; BMI 29.7
--- NOTE | 2020-02-26 10:30 | EKG12_ITS ---
Test Reason : CP Blood Pressure : / mmHG Vent. Rate : 053 BPM Atrial Rate : 053 BPM P-R Int : 212 ms QRS Dur : 116 ms QT Int : 502 ms P-R-T Axes : 000 046 079 degrees QTc Int : 471 ms Sinus bradycardia with 1st degree A-V block Anterolateral infarct , age undetermined, cannot be excluded Abnormal ECG Confirmed by FREDDIE BAKER, APURVA ([id number]), continuity editor DEVON LOUIS ([id number]) on 03/03/2020 9:14:55 AM Referred By: MARI Confirmed By:APURVA FRAZIER MD
[2020-02-26] MEDS: Aspirin 81 MG TAB.CHEW 324 MG PO (10:34)
--- NOTE | 2020-02-26 10:42 | RAD_ITS ---
STUDY: X-RAY CHEST REASON FOR EXAM: Male, 79 years old. PT STATES HE HAS HAD CHEST TIGHTNESS FOR 24 HOURS, STATES and quot;HE HAS A BLOOD CLOT IN HIS HEART FOR 2 YEARS and quot; TECHNIQUE: Single AP portable view of the chest. COMPARISON: Comparison is made with prior study of 05/01/2019. FINDINGS: EKG electrodes are seen. The lungs are clear and expanded. There is no demonstrated pleural abnormality. Sternal cerclage wires and vascular clips are present from a prior sternotomy and coronary artery bypass graft procedure (CABG). Mild cardiomegaly. Normal mediastinum and giovanni. Normal visualized pulmonary arteries. There is atherosclerotic tortuosity of the aortic arch and descending thoracic aorta. Normal visualized thoracic spine. Normal visualized ribs, clavicles, and shoulders. There is no demonstrated abnormality of the visualized soft tissue structures of the upper abdomen. RAD/Chest 1 View (Portable) IMPRESSION: No acute bone amount is seen. Electronically Signed: Austen Wheat, at 11:06 EDT , Service support ,
[2020-02-26 10:48] LABS: Absolute Lymphocyte Count 1.19 X10^3/uL (0.83-4.51); Absolute Neutrophil Count 4.1 X10^3/uL (2.0-7.7); Basophil# 0.02 X10^3/uL; Basophil% 0.3 % (0-1); Eosinophil# 0.06 X10^3/uL; Hematocrit 44.8 % (40-54); Hemoglobin 14.5 g/dL (13.0-16.5); Lymphocyte # 1.19 X10^3/ul (4.0); Lymphocyte % 20.3 % (19-41); Mean Corp Hgb Conc 32.4 g/dL (32-36); Mean Corpuscular Volume 95.9 fL (80-94); Mean Platelet Vol. 11.4 fl (6.2-12.0); Monocyte# 0.46 X10^3/uL; Monocyte% 7.8 % (0-10); NRBC Flagged by Analyzer 0 % (0-5); Neutrophil # 4.12 X10^3/uL (2.7-7.7); Neutrophil % 70.4 % (47-70); Platelet Count 149 K/mm3 (150-450); RBC Distribution Width CV 13.2 % (11.6-14.6); RBC Distribution Width SD 46.5 fl (35.1-43.9); Red Blood Count 4.67 M/mm3 (4.6-6.2); White Blood Count 5.9 K/mm3 (4.4-11.0)
[2020-02-26 10:50] LABS: International Normalized Ratio 2.1; Prothrombin Time (Protime)PT. 23.2 SECONDS (11.7-14.9)
[2020-02-26 11:01] LABS: Anion Gap 3 (5-15); BUN 25 mg/dL (7-18); BUN/Creat Ratio 12.6 RATIO (10-20); Calcium,Total 8.6 mg/dL (8.5-10.1); Chloride 109 mmol/L (98-107); Creatinine, Serum 1.99 mg/dL (0.70-1.30); EST Glomerular Filtration Rate 34 mL/min (>60); Est Glom Filt Rate - Afr Amer 42 mL/min (>60); Estimated Creatinine Clearance 26.27 ml/min; Glucose 90 mg/dL (74-106); Potassium 4.9 mmol/L (3.5-5.1); Sodium Level 140 mmol/L (136-145)
--- NOTE | 2020-02-26 11:49 | NURSING ---
DR KARY SUAREZ
--- NOTE | 2020-02-26 11:52 | ED.DCSUM_ITS ---
- ER Visit Summary Date of Service: 02/26/20 Chief Complaint: Chest pain/tired History of Present Illness: The patient is a 79 M with chest pain that started overnight last night and was worse today. Associated with shortness of breath. He has a history of coronary disease, coronary bypass. He also has a history of apical thrombus. He takes warfarin among his other medications. He follows with Dr. Malone. He thinks it was at least 3 years since his last stress test. Physical Examination: Afebrile and vital signs unremarkable except for blood pressure 176/82. Patient in no acute distress. Heart regular. Lungs clear. Skin appears normal. Calves soft and supple. Test Results: EKG shows sinus rhythm at a rate of 53. CBC, BMP unremarkable. Troponin normal. INR 2.1. Chest x-ray showed nothing acute. Emergency Department Course and Treatment: Patient placed on a monitor. Treated with aspirin. He remained stable. Heart score was 5. Work-up showed nothing acute. INR therapeutic. Given his history and symptoms, hospitalist was contacted for further care. Treatment Plan: As above Disposition: PCU observation Impression: Chest pain This note was generated with [employer] dictation software. It may contain incorrect words, spelling, and punctuation that were not noted in review of the chart prior to signing ED Disposition - Plan for ED Patient: Referrals: Pal Yan NP-C [Primary Care Provider] -
--- NOTE | 2020-02-26 11:53 | NURSING ---
PCU OBS KARY BANKS
--- NOTE | 2020-02-26 12:53 | HP.PCM_ITS ---
History of Present Illness Date of Admission: 02/26/20 Chief Complaint: chest pain The patient is a 79 year old M presents with left-sided chest pain. Chest pain began yesterday. No relieving or exacerbating factors. Some nausea. No radiation. No other constitutional symptoms. Patient presented to the em ergency room where he was evaluated. INR was 2.1. Patient received 325 mg of aspirin. Feeling better at this time though not completly resolved. States that feels that the chest pain is similar to when he had a heart attack in 2010 when he had a CABG. 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 Onur Duarte @ [facility] BPH (benign prostatic hyperplasia) (Chronic) Atherosclerotic heart disease of [place] coronary artery without angina pectoris (Chronic) History of CABG: STEARNS to LAD, SVG to OM 1 History of TIA (transient ischemic attack) (Chronic) Circa [id number], prior to CABG, etc. Pt states I think it was really heat stroke COPD (chronic obstructive pulmonary disease) (Chronic) Medical History: Medical History (Last Reviewed 02/26/20 @ 12:[address] 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) I74.2 Left upper extremitiy 2010 after CABG Chronic systolic (congestive) heart failure (Chronic) I50.22 Ischemic cardiomyopathy (Chronic) I25.5 EF 30-35% per echo and [facility] October and November 2011; 45%per echo October 2012 History of bacterial endocarditis (Chronic) Z86.79 Related to ICD wire: 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 Pt states I think it was really heat stroke COPD (chronic obstructive pulmonary disease) (Chronic) J44.9 History of kidney stones Z87.442 Allergies No Known Allergies Allergy (Verified 02/26/20 10:24) Home Medications: Ambulatory Orders Medication Instructions Recorded Pravastatin [Pravachol] 40 mg PO QHS 04/29/16 nitroglycerin 0.4 mg sublingual 0.4 mg SUBLINGUAL Q5-15M PRN 11/08/17 tablet aspirin 81 mg chewable tablet 81 mg PO DAILY #30 tab 05/24/18 amiodarone 200 mg tablet 200 mg PO DAILY #90 tab 01/22/19 furosemide 40 mg tablet 40 mg PO DAILY #90 tab 03/27/19 lisinopril 10 mg tablet 10 mg PO BID #180 tab 09/18/19 levothyroxine 88 mcg tablet 88 mcg PO DAILY 01/16/20 Warfarin Sodium [Coumadin] 2 mg PO MOTUWETH 02/26/20 Warfarin [Coumadin ([facility])] 1.5 mg PO QODAY 02/26/20 Surgical History: Surgical History (Last Reviewed 02/26/20 @ 12:[address] Luis Manuel Smith, DO) History of coronary artery bypass graft x 2 (Chronic) Onset Date: ~01/14/11 Z95.1 ICD subsequently removed concomittently with CABG procedure and pericardial patch perforation repair on 01/14/2011 @ [facility], Dr. Brett Wilkins: L VASYL to LAD and SVG to OM 1 History of right and left heart catheterization (Chronic) Z98.890 12/13/[address] Onur Duarte @ [facility] History of tonsillectomy Z90.89 Surgical History: noncontributory Psychiatric History: No pertinent psych hx Smoking Status: Former smoker - *Family History Maternal Family History: Family History (Last Reviewed 02/26/20 @ 12:[address] Luis Manuel Smith, DO) Father Colon cancer Mother Myocardial infarction CAD (coronary artery disease) Brother CAD (coronary artery disease) Myocardial infarction Brother CAD (coronary artery disease) Myocardial infarction Review of Systems Constitutional: Denies: Chills, Fever, Weight Change Eyes: Denies: Blurred vision, Double vision HEENT: Denies: Head Aches, Sinus Congestion, Sinus Drainage Cardiovascular: Reports: Chest Pain. Denies: Edema Respiratory: Denies: Cough, Shortness of breath at rest, Sputum production Gastrointestinal: Denies: Abdominal Pain, Nausea, Vomiting Genitourinary: Denies: Dysuria Musculoskeletal: Denies: Joint Pain, Joint Tenderness Skin: Denies: Dryness, Jaundice Neurological: Denies: Numbness, Tingling, Focal weakness Psychiatric: Denies: Anxiety, Depression Hematologic/ Lymphatic: Denies: Easy Bruising, Easy Bleeding, Hx of blood clot Comment: All review of systems were negative except as mentioned above in the history of present illness and the other review of systems. VTE Information - Inpt Only VTE Present on Admission: No VTE Mechan Device Prophylaxis: None VTE Pharm Prophylaxis ordered?: No Reason prophylaxis not ordered:: Treatment Not Indicated - Physical Exam Vitals/I&O's: Vital Signs Temp Pulse Resp BP Pulse Ox 36.8 C 44 L 16 168/74 H 98 02/26/20 12:02/26/20 12:02/26/20 12:01 02/26/20 12:02/26/20 12:01 Oxygen Delivery Method Room Air Weight: 87 kg Body Mass Index (BMI) 30.9 General: Alert, Cooperative, No apparent distress HEENT: Atraumatic, Normocephalic Oral: Moist Mucosa, No Gingival or Mucosal Lesions/ Ulcerations Neck: No Nodes, Thyroid Normal Size and Texture Lungs: Clear to auscultation, Normal air movement, No rhonchi, No wheeze, No rales Cardiovascular: Regular rate, Regular Rhythm, Normal S1, Normal S2, No murmurs Abdomen: Bowel Sounds Present, Soft, Non Tender, Non-Distended, No Hepato- splenomegaly Extremities: No edema, No Calf Tenderness Skin: No rashes, No breakdown Musculoskeletal: No Tenderness to Palpation of Joints or Extremities, No Muscle Wasting Neurological: Neuro grossly intact, - - no clonus Psych/Mental Status: Normal Affect, Appropriate Laboratory Results 02/26/20 10:30: WBC 5.9, RBC 4.67, Hgb 14.5, Hct 44.8, MCV 95.9 H, MCH 31.0, MCHC 32.4, RDW Std Deviation 46.5 H, RDW Coeff of Travis 13.2, Plt Count 149 L, MPV 11.4, Immature Gran % (Auto) 0.200, Neut % (Auto) 70.4 H, Lymph % (Auto) 20.3, [place] % (Auto) 7.8, Eos % (Auto) 1.0, Baso % (Auto) 0.3, Absolute Neuts (auto) 4.1, Absolute Lymphs (auto) 1.19, Nucleated RBC % 0 02/26/20 10:30: PT 23.2 H, INR 2.1 02/26/20 10:30: Sodium 140, Potassium 4.9, Chloride 109 H, Carbon Dioxide 28.0, Anion Gap 3 L, BUN 25 H, Creatinine 1.99 H, Estim Creat Clear Calc 26.27, Est GFR (MDRD) Af Amer 42 L, Est GFR (MDRD) Non-Af 34 L, BUN/Creatinine Ratio 12.6, Glucose 90, Calcium 8.6, Troponin I < 0.015 EKG reviewed and showed sinus bradycardia with no acute changes. Chest x-ray personally reviewed and showed normal airways. No evidence of any pulmonary edema nor infiltrate. Assessment/Plan All Active Problems (Last Reviewed 01/16/20 @ 10:00 by Vanessa Paul) Nephrolithiasis (Acute) 1. Chest pain: * Licha score of 14 * SAE of 4 * Plan is for a chemical stress test. We will perform an nuclear stress test given his known history of coronary bypass. Stress test is normal patient be discharged home, however if the stress test is abnormal or the troponins become elevated then will consult cardiology. 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 * Continue with aspirin * Cycle troponins * Check lipid panel 2. LV thrombus * Continue with warfarin. INR is 2.1. Patient had echocardiogram in November that showed persistent LV thrombus though appear to be smaller than it was back in June 07, 2019. 3. Ischemic cardiomyopathy * EF 25% from echocardiogram in November of this year. * Clinically compensated this time. Follow-up cardiology for further evaluation * Per cardiology note from December, plan was for continued medical management. 4. VTE prophylaxis: not indicated due to currently anticoagulated and observation status 5. Advanced care planning: DW patient, full code status OBSV E&M: [id number] Initial observation care L3
--- NOTE | 2020-02-26 13:06 | EKG12_ITS ---
Test Reason : CP ADMISSION Blood Pressure : / mmHG Vent. Rate : 051 BPM Atrial Rate : 051 BPM P-R Int : 218 ms QRS Dur : 118 ms QT Int : 480 ms P-R-T Axes : 018 025 129 degrees QTc Int : 442 ms Sinus bradycardia with 1st degree A-V block Anterolateral infarct , age undetermined Abnormal ECG When compared with ECG of 26-FEB-2020 10:23, MANUAL COMPARISON REQUIRED, DATA IS UNCONFIRMED Confirmed by WILLY BAKER, NELA ([id number]), scientific publications editor GERMAN GUARDADO ([id number]) on 02/28/2020 3:54:35 PM Referred By: KARY Confirmed By:NELA AGUILERA MD
[2020-02-26] MEDS: oxyCODONE 5 MG Tablet PO (13:33)
[2020-02-26] MEDS: Amiodarone 200 MG Tablet PO (14:17)
[2020-02-26] MEDS: Lisinopril 10 MG Tablet PO ×2 (14:17→21:15)
[2020-02-26] MEDS: Jantoven 2 MG Tablet PO (17:37)
[2020-02-26] MEDS: Pravastatin 40 MG Tablet PO (21:15)
[2020-02-27] VITALS (9 sets, daily range): BP systolic 138–160; BP diastolic 59–77; PULSE 42–53; RESP 16–18; TEMP 36.3–36.7; O2SAT 95–98
[2020-02-27] MEDS: Levothyroxine 88 MCG Tablet PO (05:45)
[2020-02-27] MEDS: Aspirin 81 MG TAB.CHEW PO (05:45)
[2020-02-27] MEDS: Lisinopril 10 MG Tablet PO (05:45)
[2020-02-27 05:47] LABS: Prothrombin Time (Protime)PT. 22.3 SECONDS (11.7-14.9)
[2020-02-27 05:59] LABS: Anion Gap 4 (5-15); BUN 29 mg/dL (7-18); BUN/Creat Ratio 17.2 RATIO (10-20); Chloride 107 mmol/L (98-107); Cholesterol 154 mg/dL (200); Creatinine, Serum 1.69 mg/dL (0.70-1.30); EST Glomerular Filtration Rate 42 mL/min (>60); Est Glom Filt Rate - Afr Amer 50 mL/min (>60); Estimated Creatinine Clearance 30.94 ml/min; Glucose 89 mg/dL (74-106); High Density Lipoprotein 52 mg/dL; Potassium 4.4 mmol/L (3.5-5.1); Sodium Level 139 mmol/L (136-145); Triglycerides 115 mg/dL; Very Low Density Lipoprotein 23 mg/dL (5-40)
[2020-02-27] MEDS: Acetaminophen 325 MG Tablet 650 MG PO (10:34)
--- NOTE | 2020-02-27 12:40 | CASEMGMT ---
RN CM NOTE: To room to talk w/pt and review VIDAL form. Pt resting in bed and at bedside. VIDAL form reviewed, questions answered, and form signed by pt. Pt/ deny having any further questions. Copy of form made/placed on chart and original given to pt. Pt/ made aware to ask for RN DEVAUGHN if any further questions arise. They voice understanding. Pt/ deny having any questions/concerns/needs w/pt returning home. states she is always with pt and able to assist as needed. Balaji BSN RN CM
--- NOTE | 2020-02-27 13:08 | STRESSREP ---
Stress Test Report Date: 02-27-2020 Procedure: Pharmacologic stress nuclear imaging study Indications: Chest pain; CAD; CABG; ischemic mediated cardiomyopathy; CHF Consent: Per the patient Procedure: The patient underwent pharmacologic (Regadenoson) evaluation with a peak heart rate of 76 beats per minute (54 %predicted maximal heart rate) and a peak blood pressure of 158/62 mmHg. The baseline ECG demonstrated sinus/ectopic atrial bradycardia; poor R wave progression; anterior NV of indeterminate age cannot be excluded. The peak pharmacologic ECG demonstrated no obvious ECG changes. There were no cardiac dysrhythmias pretest, during pharmacologic infusion, or recovery. There was no complaint of chest discomfort during pharmacologic infusion or recovery. The examination was discontinued secondary to completion of protocol. Impression: 1. Pharmacologic (Regadenoson) evaluation 2. Peak pharmacologic ECG with no obvious ECG changes. 3. There were no cardiac dysrhythmias pretest, during pharmacologic infusion, or recovery. 4. Nuclear images pending Myocardial perfusion imaging study: Technique: The patient was injected with 12.0 millicuries of technetium 99m Cardiolite and subsequently rest SPECT Cardiolite nuclear imaging was obtained in the horizontal long, vertical long, and short axis views. The patient underwent pharmacologic (Regadenoson) evaluation with a peak heart rate of 76 beats per minute (54 % percent predicted maximal heart rate) and a peak blood pressure of 158/62 mmHg. The patient was injected with 34.3 millicuries of technetium 99m Cardiolite and subsequently stress SPECT Cardiolite nuclear imaging was obtained in the horizontal long, vertical long, and short axis views. A gated Cardiolite study at peak stress was obtained. Interpretation: Rest and stress SPECT Cardiolite nuclear imaging status post realignment, normalization, and attenuation correction demonstrate the appearance of diminished absence of myocardial perfusion/tracer uptake in portions of the mid to distal anterior, anteroseptal, anteroapical, and septal apical segments with no significant change between rest and stress. There is diminished end systolic thickening and brightening in the aforementioned areas. The gated Cardiolite study demonstrates diminished myocardial thickening and inward wall motion. The reported LVEF is 34 %. Impression: 1. Rest and stress SPECT Cardiolite nuclear imaging demonstrate myocardial perfusion changes appearing compatible with the effects of previous myocardial injury/infarction in portions of the mid to distal anterior, anteroseptal, anteroapical, and septal apical segments with no myocardial perfusion changes considered diagnostic for associated stress-induced myocardial ischemia. 2. The gated Cardiolite study reports an LVEF of 34 %. This note was generated with [employer] software. It may contain incorrect words, spelling, and punctuation that were not noted in checking the note before signing.
--- NOTE | 2020-02-27 13:31 | DCINST_ITS ---
You will use the following diet at home:: Cardiac Discharge Activity: Return to Normal Activity Call your doctor if you observe: Shortness of breath, Dizziness, Fainting spells, Chest pain Allergies/Adverse Reactions: Allergies No Known Allergies Allergy (Verified 02/26/20 10:24) Medications to take at Discharge Pravastatin [Pravachol] 40 mg PO QHS 04/29/16 nitroglycerin 0.4 mg sublingual tablet 0.4 mg SUBLINGUAL Q5-15M PRN 11/08/17 aspirin 81 mg chewable tablet 81 mg PO DAILY #30 tab 05/24/18 amiodarone 200 mg tablet 200 mg PO DAILY #90 tab 01/22/19 lisinopril 10 mg tablet 10 mg PO BID #180 tab 09/18/19 levothyroxine 88 mcg tablet 88 mcg PO DAILY 01/16/20 Furosemide [Lasix] 40 mg PO DAILY PRN 02/26/20 Warfarin Sodium [Coumadin] 2 mg PO MOTUWETH 02/26/20 Warfarin [Coumadin] 1.5 mg PO QODAY 02/26/20 Primary Care Physician: Pal Yan NP-C [Primary Care Provider] - Please follow up with your Primary Care Physician in: 1 Week Test Results: Test results from this visit will be discussed in further detail at your follow- up appointment, if applicable. Please Follow Up With: Temo Agrawal NP-C When: 1-2 Weeks Proposed Discharge Date: 02/27/20
--- NOTE | 2020-02-27 13:33 | PCM.DC.SUM ---
<Karely Acevedo - Last Filed: 02/27/20 13:40> Discharge Date and Diagnosis Date of Admission: 02/26/20 Date of Discharge: 02/27/20 - Primary Discharge Diagnosis Acute Problems: 1. Chest pain, ACS ruled out 2. LV thrombus 3. Ischemic cardiomyopathy/CAD with history of CABG 4. Hypertension 5. Hyperlipidemia 6. Hypothyroidism - Secondary Discharge Diagnosis Chronic Problems: Chronic Problems (Last Reviewed 02/26/20 @ 12:[address] 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 Onur Duarte @ [facility] BPH (benign prostatic hyperplasia) (Chronic) Atherosclerotic heart disease of [place] coronary artery without angina pectoris (Chronic) History of CABG: STEARNS to LAD, SVG to OM 1 History of TIA (transient ischemic attack) (Chronic) Circa 2682-5351, prior to CABG, etc. Pt states I think it was really heat stroke COPD (chronic obstructive pulmonary disease) (Chronic) Hospital Course and Treatment Imaging Results: Diagnostic Data Chest X-Ray 02/26/20 10:42 IMPRESSION: No acute bone amount is seen. Electronically Signed: Austen Wheat, at 11:06 EDT , Service support , Operations: None Procedures: Stress test Summary of Care Provided: The patient is a 79 year old M admitted 02/26/2020 due to chest pain. 1. Chest pain, ACS ruled out-troponin negative. EKG without ST-T changes. Patient underwent nuclear stress test which was negative for ischemia. Did demonstrate myocardial perfusion changes consistent with prior myocardial injury. LVEF 34%. Patient denies further chest pain during admission. Follow-up with cardiology in 1 to 2 weeks. 2. LV thrombus-on anticoagulation with Coumadin. INR therapeutic. 3. Ischemic cardiomyopathy/CAD with history of CABG-echocardiogram November 2019 demonstrated an EF of 25%. Patient had prior ICD however this was explanted due to infectious endocarditis. Continue aspirin, statin. 4. Hypertension-intermittently above goal during admission. Recommend continued monitoring at home with further follow-up with cardiology. Continue home Lasix, lisinopril. 5. Hyperlipidemia-continue statin. 6. Hypothyroidism-continue Synthroid regimen. Patient seen and examined prior to discharge. Physical assessment as noted below. Patient is stable for discharge with follow up recommendations as noted above. This patient was seen by JACK Acuna under the supervision of Dr. Smith. - Physical Exam Vitals/I&O's: Vital Signs Temp Pulse Resp BP Pulse Ox 97.4 F L 47 L 16 157/68 H 95 02/27/20 08:25 02/27/20 08:25 02/27/20 08:25 02/27/20 08:25 02/27/20 08:25 Oxygen Flow Rate (L/min) 2 Oxygen Delivery Method Room Air Weight: 183 lb 13.848 oz Body Mass Index (BMI) 29.7 Intake and Output for Last 24 Hours 02/25/20 02/26/20 02/27/20 23:59 23:59 23:59 Intake Total 720 / 1160 500 / 500 Balance 720 / 1160 500 / 500 General: Alert, Oriented x3, Cooperative HEENT: Atraumatic, PERRLA, EOMI, Normocephalic Neck: Supple, No JVD, Negative Carotid Bruits Lungs: Clear to auscultation, Normal air movement Cardiovascular: Regular Rhythm, Bradycardic Abdomen: Bowel Sounds Present, Soft, Non Tender Extremities: No clubbing, No cyanosis, No edema, Capillary Refill Less than 3 Seconds Skin: No rashes, No breakdown Musculoskeletal: No Tenderness to Palpation of Joints or Extremities Neurological: Cranial nerves II-XII grossly intact, Neuro grossly intact Psych/Mental Status: Normal Affect, Appropriate Laboratory Results 02/26/20 14:05: Troponin I < 0.015 02/26/20 17:15: Troponin I < 0.015 02/27/20 05:30: PT 22.3 H, INR 2.0 02/27/20 05:30: Sodium 139, Potassium 4.4, Chloride 107, Carbon Dioxide 28.0, Anion Gap 4 L, BUN 29 H, Creatinine 1.69 H, Estim Creat Clear Calc 30.94, Est GFR (MDRD) Af Amer 50 L, Est GFR (MDRD) Non-Af 42 L, BUN/Creatinine Ratio 17.2, Glucose 89, Calcium 8.0 L, Triglycerides 115, Cholesterol 154, LDL Cholesterol 79, VLDL Cholesterol 23, HDL Cholesterol 52 Current Medications Acetaminophen (Tylenol) 650 mg PO Q6H PRN PRN PRN Reason: Pain Score 1-10/Temp > 100.7 F Last Admin: 02/27/20 10:34 Dose: 650 mg Documented by: Amiodarone HCl (Cordarone) 200 mg PO DAILY [facility] Last Admin: 02/26/20 14:17 Dose: 200 mg Documented by: Aspirin (Aspirin, Baby) 81 mg PO DAILY@0800 [facility] Last Admin: 02/27/20 05:45 Dose: 81 mg Documented by: Furosemide (Lasix) 40 mg PO DAILY [facility] Last Admin: 02/27/20 10:58 Dose: Not Given Documented by: Sodium Chloride () 250 mls @ 15 mls/hr IV .[id number] PRN PRN Reason: Saline Flush Sodium Chloride () 250 mls @ 15 mls/hr IV .[id number] PRN PRN Reason: Additional IVPB Infusion Levothyroxine Sodium (Synthroid) 88 mcg PO DAILY@0600 [facility] Last Admin: 02/27/20 05:45 Dose: 88 mcg Documented by: Lisinopril (Zestril) 10 mg PO BID [facility] Last Admin: 02/27/20 05:45 Dose: 10 mg Documented by: Nitroglycerin (Nitrostat) 0.4 mg SUBLINGUAL Q5M PRN PRN Reason: chest pain Ondansetron HCl (Zofran) 4 mg IV Q8H PRN PRN PRN Reason: NAUSEA/VOMITING Oxycodone HCl (Oxyir) 5 mg PO Q4H PRN PRN PRN Reason: Pain Score 6-10/10 Last Admin: 02/26/20 13:33 Dose: 5 mg Documented by: Pravastatin Sodium (Pravachol) 40 mg PO QHS [facility] Last Admin: 02/26/20 21:15 Dose: 40 mg Documented by: Sodium Chloride () 10 - 40 ml IV UD PRN PRN Reason: SALINE FLUSH Warfarin Sodium (Jantoven) 2 mg PO MoTuWeTh@1700 [facility]; Protocol Last Admin: 02/26/20 17:37 Dose: 2 mg Documented by: Warfarin Sodium 1 mg/ Warfarin (Sodium 0.5 mg) 1.5 mg PO SuFrSa@1700 [facility] Discharge Diet: Low fat/ Low Cholesterol Discharge Activity: Return to Normal Activity Call your doctor if you observe: Shortness of breath, Dizziness, Fainting spells, Chest pain Home Medications: Medications to take at Discharge Pravastatin [Pravachol] 40 mg PO QHS 04/29/16 nitroglycerin 0.4 mg sublingual tablet 0.4 mg SUBLINGUAL Q5-15M PRN 11/08/17 aspirin 81 mg chewable tablet 81 mg PO DAILY #30 tab 05/24/18 amiodarone 200 mg tablet 200 mg PO DAILY #90 tab 01/22/19 lisinopril 10 mg tablet 10 mg PO BID #180 tab 09/18/19 levothyroxine 88 mcg tablet 88 mcg PO DAILY 01/16/20 Furosemide [Lasix] 40 mg PO DAILY PRN 02/26/20 Warfarin Sodium [Coumadin] 2 mg PO MOTUWETH 02/26/20 Warfarin [Coumadin] 1.5 mg PO QODAY 02/26/20 Primary Care Physician: Pal Yan NP-C [Primary Care Provider] - Please follow up with your Primary Care Physician in: 1 Week Please Follow Up With: Temo Agrawal NP-C When: 1-2 Weeks Disposition: Home Minutes spent on discharge:: 35 Patient Condition:: Stable Medical Necessity - Tobacco Use Smoking Status: Former smoker Meaningful Use Info Meaningful Use Diagnoses (Choose all that apply): None applicable <Luis Manuel Smith - Last Filed: 02/27/20 13:46> Discharge Date and Diagnosis - Secondary Discharge Diagnosis Chronic Problems: Chronic Problems (Last Reviewed 02/26/20 @ 12:[address] 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 Onur Duarte @ [facility] BPH (benign prostatic hyperplasia) (Chronic) Atherosclerotic heart disease of [place] coronary artery without angina pectoris (Chronic) History of CABG: STEARNS to LAD, SVG to OM 1 History of TIA (transient ischemic attack) (Chronic) Circa 5358-6903, prior to CABG, etc. Pt states I think it was really heat stroke COPD (chronic obstructive pulmonary disease) (Chronic) Hospital Course and Treatment Imaging Results: 02/27/20 05:55 Nuclear Stress Test - Chemical [NM] AM (NON MEDS) Operations: None Procedures: Stress test Summary of Care Provided: Patient seen and examined independently. Data reviewed. I agree with the above note by the nurse practitioner. The patient is a 79 year old M presents with left-sided chest pain to me in the day before. Patient underwent cardiac work-up, including stress test that was unremarkable. Patient will be following up with cardiology in the next coming weeks. Patient does have known LV thrombus INR is been. [] - Physical Exam Vitals/I&O's: Vital Signs Temp Pulse Resp BP Pulse Ox 36.3 C L 47 L 16 157/68 H 95 02/27/20 08:25 02/27/20 08:25 02/27/20 08:25 02/27/20 08:25 02/27/20 08:25 Oxygen Flow Rate (L/min) 2 Oxygen Delivery Method Room Air Weight: 83.4 kg Body Mass Index (BMI) 29.7 Intake and Output for Last 24 Hours 02/25/20 02/26/20 02/27/20 23:59 23:59 23:59 Intake Total 720 / 1160 500 / 500 Balance 720 / 1160 500 / 500 General: Alert, Cooperative HEENT: Atraumatic, Normocephalic Lungs: Clear to auscultation, Normal air movement, No rhonchi, No wheeze Cardiovascular: Regular Rhythm, Bradycardic Abdomen: Bowel Sounds Present, Soft, Non Tender, Non-Distended Extremities: No edema, No Calf Tenderness Skin: No rashes, No breakdown Musculoskeletal: No Tenderness to Palpation of Joints or Extremities Psych/Mental Status: Normal Affect, Appropriate Laboratory Results 02/26/20 14:05: Troponin I < 0.015 02/26/20 17:15: Troponin I < 0.015 02/27/20 05:30: PT 22.3 H, INR 2.0 02/27/20 05:30: Sodium 139, Potassium 4.4, Chloride 107, Carbon Dioxide 28.0, Anion Gap 4 L, BUN 29 H, Creatinine 1.69 H, Estim Creat Clear Calc 30.94, Est GFR (MDRD) Af Amer 50 L, Est GFR (MDRD) Non-Af 42 L, BUN/Creatinine Ratio 17.2, Glucose 89, Calcium 8.0 L, Triglycerides 115, Cholesterol 154, LDL Cholesterol 79, VLDL Cholesterol 23, HDL Cholesterol 52 Current Medications Acetaminophen (Tylenol) 650 mg PO Q6H PRN PRN PRN Reason: Pain Score 1-10/Temp > 100.7 F Last Admin: 02/27/20 10:34 Dose: 650 mg Documented by: Amiodarone HCl (Cordarone) 200 mg PO DAILY [facility] Last Admin: 02/26/20 14:17 Dose: 200 mg Documented by: Aspirin (Aspirin, Baby) 81 mg PO DAILY@0800 [facility] Last Admin: 02/27/20 05:45 Dose: 81 mg Documented by: Furosemide (Lasix) 40 mg PO DAILY [facility] Last Admin: 02/27/20 10:58 Dose: Not Given Documented by: Sodium Chloride () 250 mls @ 15 mls/hr IV .[id number] PRN PRN Reason: Saline Flush Sodium Chloride () 250 mls @ 15 mls/hr IV .[id number] PRN PRN Reason: Additional IVPB Infusion Levothyroxine Sodium (Synthroid) 88 mcg PO DAILY@0600 [facility] Last Admin: 02/27/20 05:45 Dose: 88 mcg Documented by: Lisinopril (Zestril) 10 mg PO BID [facility] Last Admin: 02/27/20 05:45 Dose: 10 mg Documented by: Nitroglycerin (Nitrostat) 0.4 mg SUBLINGUAL Q5M PRN PRN Reason: chest pain Ondansetron HCl (Zofran) 4 mg IV Q8H PRN PRN PRN Reason: NAUSEA/VOMITING Oxycodone HCl (Oxyir) 5 mg PO Q4H PRN PRN PRN Reason: Pain Score 6-10/10 Last Admin: 02/26/20 13:33 Dose: 5 mg Documented by: Pravastatin Sodium (Pravachol) 40 mg PO QHS [facility] Last Admin: 02/26/20 21:15 Dose: 40 mg Documented by: Sodium Chloride () 10 - 40 ml IV UD PRN PRN Reason: SALINE FLUSH Warfarin Sodium (Jantoven) 2 mg PO MoTuWeTh@1700 [facility]; Protocol Last Admin: 02/26/20 17:37 Dose: 2 mg Documented by: Warfarin Sodium 1 mg/ Warfarin (Sodium 0.5 mg) 1.5 mg PO SuFrSa@1700 [facility] Discharge Diet: Low fat/ Low Cholesterol Discharge Activity: Return to Normal Activity Call your doctor if you observe: Shortness of breath, Dizziness, Fainting spells, Chest pain Disposition: Home Minutes spent on discharge:: 35 Patient Condition:: Stable Medical Necessity - Tobacco Use Smoking Status: Former smoker Meaningful Use Info Meaningful Use Diagnoses (Choose all that apply): None applicable OBSV E&M: 24636 Observation care discharge
--- NOTE | 2020-02-27 14:10 | PHA.DC.MR ---
Pharmacy Service has performed discharge medication reconciliation for this patient. The patient's discharge medication list was reviewed for discrepancies and discrepancies were resolved. Home Medications Pravastatin [Pravachol] 40 mg PO QHS 04/29/16 nitroglycerin 0.4 mg sublingual tablet 0.4 mg SUBLINGUAL Q5-15M PRN 11/08/17 aspirin 81 mg chewable tablet 81 mg PO DAILY #30 tab 05/24/18 amiodarone 200 mg tablet 200 mg PO DAILY #90 tab 01/22/19 lisinopril 10 mg tablet 10 mg PO BID #180 tab 09/18/19 levothyroxine 88 mcg tablet 88 mcg PO DAILY 01/16/20 Furosemide [Lasix] 40 mg PO DAILY PRN 02/26/20 Warfarin Sodium [Coumadin] 2 mg PO MOTUWETH 02/26/20 Warfarin [Coumadin] 1.5 mg PO QODAY 02/26/20
== END 2020-02-27 13:32 | disposition home or self-care (01) ==
LOC: ED 10:59 → PCU 12:15
PROVIDERS: Emergency Provider Emergency Medicine; PCP Nurse Practitioner Primary Care
DX: R07.89 Other chest pain (principal); R06.02 Shortness of breath; I25.2 Old myocardial infarction; I11.0 Hypertensive heart disease with heart failure; I50.22 Chronic systolic (congestive) heart failure; I25.5 Ischemic cardiomyopathy; J44.9 Chronic obstructive pulmonary disease, unspecified; I25.10 Atherosclerotic heart disease of native coronary artery without angina pectoris; N40.0 Benign prostatic hyperplasia without lower urinary tract symptoms; E78.5 Hyperlipidemia, unspecified; E03.9 Hypothyroidism, unspecified; Z95.1 Presence of aortocoronary bypass graft; Z79.899 Other long term (current) drug therapy; Z79.01 Long term (current) use of anticoagulants; Z79.82 Long term (current) use of aspirin; Z87.891 Personal history of nicotine dependence; Z86.711 Personal history of pulmonary embolism
CPT/HCPCS: 71045; 78452; 80048; 80061; 84484; 85025; 85610; 93005; 93017; 99218; 99285; A9500; A4216; G0378; J2785

== ENCOUNTER 2020-03-21 13:01 | Outpatient (RCR) | payer MEDICARE, OTHER, SELFPAY ==
[2020-01-16 09:58] VITALS: BMI 29.9
[2020-02-26 13:08] VITALS: BMI 29.7
[2020-03-21 13:15] LABS: Prothrombin Time Fingerstick 26.3 SEC (11.9-14.4)
== END 2020-03-24 18:00 | disposition home or self-care (01) ==
LOC: LAB 13:01
PROVIDERS: Family Provider Nurse Practitioner Primary Care; PCP Nurse Practitioner Primary Care; Referring Provider Internal Medicine Cardiovascular Disease; Visit Provider Internal Medicine Cardiovascular Disease
DX: Z79.01 Long term (current) use of anticoagulants (principal)
CPT/HCPCS: 36416; 85610

== ENCOUNTER 2020-04-23 13:02 | Outpatient (RCR) | payer MEDICARE, OTHER, SELFPAY ==
[2020-02-26 13:08] VITALS: BMI 29.7
[2020-04-23 13:16] LABS: Prothrombin Time Fingerstick 26.6 SEC (11.9-14.4)
== END 2020-04-23 18:00 | disposition home or self-care (01) ==
LOC: LAB 13:02
PROVIDERS: Family Provider Nurse Practitioner Primary Care; PCP Nurse Practitioner Primary Care; Referring Provider Internal Medicine Cardiovascular Disease; Visit Provider Internal Medicine Cardiovascular Disease
DX: Z79.01 Long term (current) use of anticoagulants (principal)
CPT/HCPCS: 36416; 85610

== ENCOUNTER 2020-05-22 08:50 | Outpatient (RCR) | payer MEDICARE, OTHER, SELFPAY ==
[2020-02-26 13:08] VITALS: BMI 29.7
[2020-05-22 09:01] LABS: Prothrombin Time Fingerstick 31.4 SEC (11.9-14.4)
== END 2020-05-22 18:00 | disposition home or self-care (01) ==
LOC: LAB 08:50
PROVIDERS: Family Provider Nurse Practitioner Primary Care; PCP Nurse Practitioner Primary Care; Referring Provider Internal Medicine Cardiovascular Disease; Visit Provider Internal Medicine Cardiovascular Disease
DX: Z79.01 Long term (current) use of anticoagulants (principal)
CPT/HCPCS: 36416; 85610

== ENCOUNTER 2020-07-21 14:02 | Outpatient (RCR) | payer MEDICARE, OTHER, SELFPAY ==
[2020-02-26 13:08] VITALS: BMI 29.7
[2020-06-29 16:03] LABS: Prothrombin Time Fingerstick 28.6 SEC (11.9-14.4)
[2020-07-21 14:11] LABS: Prothrombin Time Fingerstick 31.6 SEC (11.9-14.4)
== END 2020-07-21 18:00 | disposition home or self-care (01) ==
LOC: LAB 14:02
PROVIDERS: Family Provider Nurse Practitioner Primary Care; PCP Nurse Practitioner Primary Care; Referring Provider Internal Medicine Cardiovascular Disease; Visit Provider Internal Medicine Cardiovascular Disease
DX: Z79.01 Long term (current) use of anticoagulants (principal)
CPT/HCPCS: 36416; 85610

== ENCOUNTER → 2020-07-28 12:47 | Outpatient (CLI) | payer MEDICARE, OTHER, SELFPAY ==
[2020-07-21 13:09] VITALS: BMI 30.2
== END ==
PROVIDERS: PCP Nurse Practitioner Primary Care; Referring Provider Nurse Practitioner Family; Visit Provider Nurse Practitioner Family
DX: I25.10 Atherosclerotic heart disease of native coronary artery without angina pectoris (principal); I51.3 Intracardiac thrombosis, not elsewhere classified; I25.5 Ischemic cardiomyopathy
CPT/HCPCS: 93308; Q9957; A4216; C8924

== ENCOUNTER 2020-08-15 14:36 | Outpatient (RCR) | payer MEDICARE, OTHER, SELFPAY ==
[2020-07-21 13:09] VITALS: BMI 30.2
== END 2020-08-15 23:59 ==
LOC: IMMUN 14:36
PROVIDERS: PCP Nurse Practitioner Primary Care; Visit Provider Family Medicine
DX: Z23 Encounter for immunization (principal)
CPT/HCPCS: 0011A; 0012A; 91301

== ENCOUNTER 2020-08-28 12:02 | Outpatient (RCR) | payer MEDICARE, OTHER, SELFPAY ==
[2020-07-21 13:09] VITALS: BMI 30.2
== END 2020-08-28 18:00 | disposition home or self-care (01) ==
LOC: LAB 12:02
PROVIDERS: Family Provider Nurse Practitioner Primary Care; PCP Nurse Practitioner Primary Care; Referring Provider Internal Medicine Cardiovascular Disease; Visit Provider Internal Medicine Cardiovascular Disease
DX: Z79.01 Long term (current) use of anticoagulants (principal)
CPT/HCPCS: 36416; 85610

== ENCOUNTER 2020-09-24 11:24 | Outpatient (RCR) | payer MEDICARE, OTHER, SELFPAY ==
[2020-07-21 13:09] VITALS: BMI 30.2
[2020-09-24 11:55] LABS: Prothrombin Time Fingerstick 30.4 SEC (11.9-14.4)
== END 2020-09-24 18:00 | disposition home or self-care (01) ==
LOC: LAB 11:24
PROVIDERS: Family Provider Nurse Practitioner Primary Care; PCP Nurse Practitioner Primary Care; Referring Provider Internal Medicine Cardiovascular Disease; Visit Provider Internal Medicine Cardiovascular Disease
DX: Z79.01 Long term (current) use of anticoagulants (principal)
CPT/HCPCS: 36416; 85610

== ENCOUNTER 2020-10-28 12:15 | Outpatient (RCR) | payer MEDICARE, OTHER, SELFPAY ==
[2020-07-21 13:09] VITALS: BMI 30.2
[2020-10-28 15:51] LABS: INR Fingerstick 2.4; Prothrombin Time Fingerstick 26.8 SEC (11.9-14.4)
== END 2020-10-28 18:00 | disposition home or self-care (01) ==
LOC: LAB 12:15
PROVIDERS: Family Provider Nurse Practitioner Primary Care; PCP Nurse Practitioner Primary Care; Referring Provider Internal Medicine Cardiovascular Disease; Visit Provider Internal Medicine Cardiovascular Disease
DX: Z79.01 Long term (current) use of anticoagulants (principal)
CPT/HCPCS: 36416; 85610

== ENCOUNTER 2020-12-02 10:16 | Outpatient (RCR) | payer MEDICARE, OTHER, SELFPAY ==
[2020-07-21 13:09] VITALS: BMI 30.2
[2020-12-02 10:35] LABS: INR Fingerstick 2.6; Prothrombin Time Fingerstick 29.2 SEC (11.9-14.4)
== END 2020-12-02 18:00 | disposition home or self-care (01) ==
LOC: LAB 10:16
PROVIDERS: Family Provider Nurse Practitioner Primary Care; PCP Nurse Practitioner Primary Care; Referring Provider Internal Medicine Cardiovascular Disease; Visit Provider Internal Medicine Cardiovascular Disease
DX: Z79.01 Long term (current) use of anticoagulants (principal)
CPT/HCPCS: 36416; 85610

== ENCOUNTER 2020-12-29 14:42 | Outpatient (RCR) | payer MEDICARE, OTHER, SELFPAY ==
[2020-07-21 13:09] VITALS: BMI 30.2
[2020-12-29 15:06] LABS: INR Fingerstick 2.5; Prothrombin Time Fingerstick 27.7 SEC (11.9-14.4)
== END 2020-12-29 18:00 | disposition home or self-care (01) ==
LOC: LAB 14:42
PROVIDERS: Family Provider Nurse Practitioner Primary Care; PCP Nurse Practitioner Primary Care; Referring Provider Internal Medicine Cardiovascular Disease; Visit Provider Internal Medicine Cardiovascular Disease
DX: Z79.01 Long term (current) use of anticoagulants (principal)
CPT/HCPCS: 36416; 85610

== ENCOUNTER 2021-02-02 13:40 | Outpatient (RCR) | payer MEDICARE, OTHER, SELFPAY ==
[2020-07-21 13:09] VITALS: BMI 30.2
[2021-02-02 13:56] LABS: INR Fingerstick 2.8; Prothrombin Time Fingerstick 31.6 SEC (11.9-14.4)
== END 2021-02-02 18:00 | disposition home or self-care (01) ==
LOC: LAB 13:40
PROVIDERS: Family Provider Nurse Practitioner Primary Care; PCP Nurse Practitioner Primary Care; Referring Provider Internal Medicine Cardiovascular Disease; Visit Provider Internal Medicine Cardiovascular Disease
DX: I51.3 Intracardiac thrombosis, not elsewhere classified (principal); Z79.01 Long term (current) use of anticoagulants
CPT/HCPCS: 36416; 85610

== ENCOUNTER 2021-02-25 13:08 | Outpatient (RCR) | payer MEDICARE, OTHER, SELFPAY ==
[2020-07-21 13:09] VITALS: BMI 30.2
[2021-02-25 13:15] LABS: INR Fingerstick 2.8; Prothrombin Time Fingerstick 31.1 SEC (11.9-14.4)
== END 2021-02-25 18:00 | disposition home or self-care (01) ==
LOC: LAB 13:08
PROVIDERS: Family Provider Nurse Practitioner Primary Care; PCP Nurse Practitioner Primary Care; Referring Provider Internal Medicine Cardiovascular Disease; Visit Provider Internal Medicine Cardiovascular Disease
DX: I51.3 Intracardiac thrombosis, not elsewhere classified (principal); Z79.01 Long term (current) use of anticoagulants
CPT/HCPCS: 36416; 85610

== ENCOUNTER → 2021-03-18 11:30 | Outpatient (CLI) | payer MEDICARE, OTHER, SELFPAY ==
--- NOTE | 2021-03-18 11:37 | RAD_ITS ---
STUDY: X-RAY CHEST REASON FOR EXAM: Male, 80 years old. Amiodarone therapy TECHNIQUE: PA and lateral views of the chest. COMPARISON: Comparison is made with prior study 02/26/2020. FINDINGS: Stable elevation of the right hemidiaphragm. Scattered calcified granulomas. There is no demonstrated pleural abnormality. Sternal cerclage wires and vascular clips are present from a prior sternotomy and coronary artery bypass graft procedure (CABG). Normal mediastinum and giovanni. Normal visualized pulmonary arteries. There is atherosclerotic calcification of the aortic arch with tortuosity. Normal visualized thoracic spine. Normal visualized ribs, clavicles, and shoulders. There is no demonstrated abnormality of the visualized soft tissue structures of the upper abdomen. RAD/Chest PA and Lateral IMPRESSION: No acute abnormality is seen. Stable examination. Electronically Signed: Austen Wheat MD at 12:55 EDT , Service support ,
== END ==
PROVIDERS: PCP Nurse Practitioner Primary Care; Referring Provider Internal Medicine Cardiovascular Disease; Visit Provider Internal Medicine Cardiovascular Disease
DX: E78.00 Pure hypercholesterolemia, unspecified (principal); I11.0 Hypertensive heart disease with heart failure; I50.22 Chronic systolic (congestive) heart failure; I25.5 Ischemic cardiomyopathy; I51.3 Intracardiac thrombosis, not elsewhere classified; Z95.1 Presence of aortocoronary bypass graft
CPT/HCPCS: 71046

== ENCOUNTER → 2021-04-01 12:42 | Outpatient (CLI) | payer MEDICARE, OTHER, SELFPAY ==
--- NOTE | 2021-04-01 12:45 | ECHOCS_ITS ---
Reason For Study: Apical Thrombus Procedure This was a 2D Doppler, Color Flow transthoracic echocardiogram. The study was technically difficult. Contrast injection was performed. Exam performed in department. Left Ventricle Severely dilated left ventricle. Moderately severe segmental systolic dysfunction (see wall motion). The estimated ejection fraction is 30 %. Anterio-Basal: Hypokinetic. Lateral-Basal: Hypokinetic. Posterior-Basal: Hypokinetic. Infero-Basal: Severely Hypokinetic. Basal inferoseptal: Hypokinetic. Basal anteroseptal: Akinetic. Mid-Anterior : Severely Hypokinetic. Mid-Lateral : Hypokinetic. Mid- Posterior: Hypokinetic. Mid-Inferior: Akinetic. Mid-inferoseptal : Hypokinetic. Mid-anteroseptal : Akinetic. Anterior [place] : Akinetic. Inferior [place] : Dyskinetic. Lateral [place] : Akinetic. Septal [place] : Dyskinetic. Right Ventricle Normal RV size. Normal systolic function. Atria The left atrium is moderately enlarged. Normal right atrium. No doppler evidence for ASD. Mitral Valve There is no mitral annular calcification. Mild diffuse mitral valve thickening. Mild papillary muscle dysfunction of the mitral valve. Moderate (2+) mitral valve insufficiency. Tricuspid Valve Normal tricuspid valve. Moderate (2+) tricuspid valve insufficiency. Right ventricular systolic pressure estimated to be 83 mmHg. Aortic Valve Trisinus/trileaflet aortic valve. Mild diffuse aortic valve thickening. Mild focal aortic valve calcification. Trivial aortic valve insufficiency. Pulmonic Valve The pulmonic valve is not well visualized. Great Vessels Normal sized aortic root. Pericardium/Pleural No pericardial effusion. Medication Diluted definity 3ml given slow IV push to enhance endocardial definition. MMode/2D Measurements & Calculations LVIDd: 6.7 cm IVSd: 0.87 cm Ao root diam: 3.4 cm LVIDs: 6.0 cm LVPWd: 0.93 cm RVDd: 4.1 cm FS: 11.5 % LAV(MOD-bp): 70.1 ml LA A4 area: 23.4 cm2 LA dimension(2D): 5.8 cm LAV(MOD-bp) Indexed: 36.7 ml/m2 LAV(MOD-sp2): 69.0 ml LAV(MOD-sp4): 67.9 ml RA A4 area: 15.0 cm2 Doppler Measurements & Calculations MV E max jorge luis: 99.7 cm/sec Lat Peak E' Jorge Lusi: 8.3 cm/sec Med Peak E' Jorge Luis: 3.0 cm/sec MV A max jorge luis: 23.4 cm/sec E/E' lat: 12.1 E/E' med: 32.9 MV E/A: 4.3 Ao V2 max: 118.4 cm/sec LV V1 max: 105.3 cm/sec PA V2 max: 76.6 cm/sec Ao max P.6 mmHg LV V1 max P.4 mmHg Ao V2 mean: 78.3 cm/sec Ao mean P.7 mmHg Ao V2 VTI: 27.7 cm TR max jorge luis: 447.3 cm/sec TR max P.0 mmHg ECHO/Echo Complete W/ Contrast Interpretation Summary The study was technically difficult. Contrast injection was performed. Severely dilated left ventricle. Moderately severe segmental systolic dysfunction (see wall motion). The estimated ejection fraction is 30 %. The left atrium is moderately enlarged. Mild diffuse mitral valve thickening. Mild papillary muscle dysfunction of the mitral valve. Moderate (2+) mitral valve insufficiency. Moderate (2+) tricuspid valve insufficiency. Mild diffuse aortic valve thickening. Mild focal aortic valve calcification. Trivial aortic valve insufficiency. Right ventricular systolic pressure estimated to be 83 mmHg c/w severe pulmonar y hypertension. Transmitral diastolic flow velocities suggest diastolic dysfunction (pseudonorm al pattern). Comment: Based upon the 2D echocardiographic and contrast enhanced images obtai mark there appears to be findings compatible with a small left ventricular apical thrombus. Ordering Physician: Brayden Malone Referring Physician: Pal Yan Performed By: April Agrawal, RDCS, RVT
--- NOTE | 2021-04-02 09:28 | PFT ---
INTRODUCTION: The patient is an 80-year-old male that presents for pulmonary function studies secondary to a diagnosis of chronic amiodarone therapy. Respiratory therapy reported that the patient had difficulty with testing and was unable to exhale for the full 6 seconds requested. Bronchodilators were used during testing. INTERPRETATION: Forced expiration spirometry demonstrates no evidence of a large airways obstructive ventilatory defect. There was no significant response to aerosolized bronchodilators. Spirograms are of suboptimal quality and terminate prior to 6 seconds, likely underestimating FVC. Body plethysmography was performed and reveals a decreased TLC to 4.38 L, 81% of predicted, indicative of a mild restrictive ventilatory impairment. Diffusing capacity by single breath CO is within normal limits. IMPRESSION: Isolated mild restrictive ventilatory impairment with preserved diffusing capacity.
== END ==
PROVIDERS: PCP Nurse Practitioner Primary Care; Referring Provider Internal Medicine Cardiovascular Disease; Visit Provider Internal Medicine Cardiovascular Disease
DX: I11.0 Hypertensive heart disease with heart failure (principal); I25.10 Atherosclerotic heart disease of native coronary artery without angina pectoris; E78.00 Pure hypercholesterolemia, unspecified; I50.22 Chronic systolic (congestive) heart failure; I25.5 Ischemic cardiomyopathy; I51.3 Intracardiac thrombosis, not elsewhere classified; Z79.01 Long term (current) use of anticoagulants; Z95.1 Presence of aortocoronary bypass graft
CPT/HCPCS: 36416; 85610; 93306; 94060; 94726; 94729; Q9957; A4216; C8929; J3490

== ENCOUNTER 2021-04-01 14:56 | Outpatient (RCR) | payer MEDICARE, OTHER, SELFPAY ==
[2021-03-24 20:10] VITALS: BMI 30.2
== END 2021-04-01 18:00 ==
LOC: LAB 14:56
PROVIDERS: Family Provider Nurse Practitioner Primary Care; PCP Nurse Practitioner Primary Care; Referring Provider Internal Medicine Cardiovascular Disease; Visit Provider Internal Medicine Cardiovascular Disease
DX: I51.3 Intracardiac thrombosis, not elsewhere classified (principal); Z79.01 Long term (current) use of anticoagulants
CPT/HCPCS: 36416; 85610

== ENCOUNTER 2021-04-29 11:35 | Outpatient (RCR) | payer MEDICARE, OTHER, SELFPAY ==
[2021-04-23 20:26] VITALS: BMI 30.2
[2021-04-29 11:45] LABS: INR Fingerstick 2.4; Prothrombin Time Fingerstick 27.3 SEC (11.9-14.4)
== END 2021-05-24 03:42 | disposition home or self-care (01) ==
LOC: LAB 11:35
PROVIDERS: Family Provider Nurse Practitioner Primary Care; PCP Nurse Practitioner Primary Care; Referring Provider Internal Medicine Cardiovascular Disease; Visit Provider Internal Medicine Cardiovascular Disease
DX: I51.3 Intracardiac thrombosis, not elsewhere classified (principal); Z79.01 Long term (current) use of anticoagulants
CPT/HCPCS: 36416; 85610

== ENCOUNTER 2021-05-29 12:39 | Outpatient (RCR) | payer MEDICARE, OTHER, SELFPAY ==
[2021-05-24 03:43] VITALS: BMI 30.2
[2021-05-29 13:21] LABS: INR Fingerstick 2.7; Prothrombin Time Fingerstick 30.4 SEC (11.9-14.4)
== END 2021-06-23 18:00 | disposition home or self-care (01) ==
LOC: LAB 12:39
PROVIDERS: Family Provider Nurse Practitioner Primary Care; PCP Nurse Practitioner Primary Care; Referring Provider Internal Medicine Cardiovascular Disease; Visit Provider Internal Medicine Cardiovascular Disease
DX: I51.3 Intracardiac thrombosis, not elsewhere classified (principal); Z79.01 Long term (current) use of anticoagulants
CPT/HCPCS: 36416; 85610

== ENCOUNTER 2021-06-29 12:46 | Outpatient (RCR) | payer MEDICARE, OTHER, SELFPAY ==
[2021-06-24 02:21] VITALS: BMI 30.2
[2021-06-30 05:50] LABS: INR Fingerstick 2.8; Prothrombin Time Fingerstick 31.3 SEC (11.9-14.4)
== END 2021-07-25 18:00 | disposition home or self-care (01) ==
LOC: LAB 12:46
PROVIDERS: Family Provider Nurse Practitioner Primary Care; PCP Nurse Practitioner Primary Care; Referring Provider Internal Medicine Cardiovascular Disease; Visit Provider Internal Medicine Cardiovascular Disease
DX: I51.3 Intracardiac thrombosis, not elsewhere classified (principal); Z79.01 Long term (current) use of anticoagulants
CPT/HCPCS: 36416; 85610

== ENCOUNTER 2021-07-30 13:58 | Outpatient (RCR) | payer MEDICARE, OTHER, SELFPAY ==
[2021-07-26 04:09] VITALS: BMI 30.2
[2021-07-30 14:16] LABS: INR Fingerstick 2.2; Prothrombin Time Fingerstick 25.9 SEC (11.9-14.4)
== END 2021-08-24 18:00 | disposition home or self-care (01) ==
LOC: LAB 13:58
PROVIDERS: Family Provider Nurse Practitioner Primary Care; PCP Nurse Practitioner Primary Care; Referring Provider Internal Medicine Cardiovascular Disease; Visit Provider Internal Medicine Cardiovascular Disease
DX: I51.3 Intracardiac thrombosis, not elsewhere classified (principal); Z79.01 Long term (current) use of anticoagulants
CPT/HCPCS: 36416; 85610

== ENCOUNTER 2021-09-21 14:53 | Outpatient (RCR) | payer MEDICARE, OTHER, SELFPAY ==
[2021-08-24 22:57] VITALS: BMI 30.2
[2021-09-01 11:55] LABS: INR Fingerstick 2.2; Prothrombin Time Fingerstick 26.1 SEC (11.9-14.4)
[2021-09-21 16:56] LABS: INR Fingerstick 2.2; Prothrombin Time Fingerstick 25.3 SEC (11.9-14.4)
== END 2021-09-21 18:00 | disposition home or self-care (01) ==
LOC: LAB 14:53
PROVIDERS: Family Provider Nurse Practitioner Primary Care; PCP Nurse Practitioner Primary Care; Referring Provider Internal Medicine Cardiovascular Disease; Visit Provider Internal Medicine Cardiovascular Disease
DX: I51.3 Intracardiac thrombosis, not elsewhere classified (principal); Z79.01 Long term (current) use of anticoagulants
CPT/HCPCS: 36416; 85610

== ENCOUNTER 2021-10-27 12:33 | Outpatient (RCR) | payer MEDICARE, OTHER, SELFPAY ==
[2021-09-22 09:47] VITALS: BMI 30.2
[2021-10-27 12:46] LABS: INR Fingerstick 2.5; Prothrombin Time Fingerstick 28.8 SEC (11.7-14.9)
== END 2021-10-27 18:00 | disposition home or self-care (01) ==
LOC: LAB 12:33
PROVIDERS: Family Provider Nurse Practitioner Primary Care; PCP Nurse Practitioner Primary Care; Referring Provider Internal Medicine Cardiovascular Disease; Visit Provider Internal Medicine Cardiovascular Disease
DX: I51.3 Intracardiac thrombosis, not elsewhere classified (principal); Z79.01 Long term (current) use of anticoagulants
CPT/HCPCS: 36416; 85610

== ENCOUNTER 2021-11-30 11:58 | Outpatient (RCR) | payer MEDICARE, OTHER, SELFPAY ==
[2021-11-22 03:00] VITALS: BMI 30.2
[2021-11-30 12:26] LABS: INR Fingerstick 2.7; Prothrombin Time Fingerstick 31.2 SEC (11.7-14.9)
== END 2021-11-30 18:00 | disposition home or self-care (01) ==
LOC: LAB 11:58
PROVIDERS: Family Provider Nurse Practitioner Primary Care; PCP Nurse Practitioner Primary Care; Referring Provider Internal Medicine Cardiovascular Disease; Visit Provider Internal Medicine Cardiovascular Disease
DX: I51.3 Intracardiac thrombosis, not elsewhere classified (principal); Z79.01 Long term (current) use of anticoagulants
CPT/HCPCS: 36416; 85610

== ENCOUNTER 2021-12-29 12:17 | Outpatient (RCR) | payer MEDICARE, OTHER, SELFPAY ==
[2021-12-22 20:39] VITALS: BMI 30.2
[2021-12-29 12:31] LABS: INR Fingerstick 2.4; Prothrombin Time Fingerstick 28.1 SEC (11.7-14.9)
== END 2021-12-29 23:59 | disposition home or self-care (01) ==
LOC: LAB 12:17
PROVIDERS: Family Provider Nurse Practitioner Primary Care; PCP Nurse Practitioner Primary Care; Referring Provider Internal Medicine Cardiovascular Disease; Visit Provider Internal Medicine Cardiovascular Disease
DX: I51.3 Intracardiac thrombosis, not elsewhere classified (principal); Z79.01 Long term (current) use of anticoagulants
CPT/HCPCS: 36416; 85610

== ENCOUNTER 2022-02-01 10:42 | Outpatient (RCR) | payer MEDICARE, OTHER, SELFPAY ==
[2022-01-22 06:58] VITALS: BMI 30.2
[2022-02-01 10:51] LABS: INR Fingerstick 2.3; Prothrombin Time Fingerstick 26.8 SEC (11.7-14.9)
== END 2022-02-21 02:18 | disposition home or self-care (01) ==
LOC: LAB 10:42
PROVIDERS: Family Provider Nurse Practitioner Primary Care; PCP Nurse Practitioner Primary Care; Referring Provider Internal Medicine Cardiovascular Disease; Visit Provider Internal Medicine Cardiovascular Disease
DX: I51.3 Intracardiac thrombosis, not elsewhere classified (principal); Z79.01 Long term (current) use of anticoagulants; I25.5 Ischemic cardiomyopathy; Z86.73 Personal history of transient ischemic attack (TIA), and cerebral infarction without residual deficits
CPT/HCPCS: 36416; 85610

== ENCOUNTER 2022-03-01 12:31 | Outpatient (RCR) | payer MEDICARE, OTHER, SELFPAY ==
[2022-02-21 02:18] VITALS: BMI 30.2
[2022-03-02 10:35] LABS: INR Fingerstick 2.1; Prothrombin Time Fingerstick 24.5 SEC (11.7-14.9)
== END 2022-03-01 18:00 | disposition home or self-care (01) ==
LOC: LAB 12:31
PROVIDERS: Family Provider Nurse Practitioner Primary Care; PCP Nurse Practitioner Primary Care; Referring Provider Internal Medicine Cardiovascular Disease; Visit Provider Internal Medicine Cardiovascular Disease
DX: I51.3 Intracardiac thrombosis, not elsewhere classified (principal); Z79.01 Long term (current) use of anticoagulants; I25.5 Ischemic cardiomyopathy; Z86.73 Personal history of transient ischemic attack (TIA), and cerebral infarction without residual deficits
CPT/HCPCS: 36416; 85610

== ENCOUNTER 2022-03-26 14:46 | Outpatient (RCR) | payer MEDICARE, OTHER, SELFPAY ==
[2022-03-24 22:58] VITALS: BMI 30.2
[2022-03-26 15:06] LABS: Prothrombin Time Fingerstick 24.1 SEC (11.7-14.9)
== END 2022-03-26 18:00 | disposition home or self-care (01) ==
LOC: LAB 14:46
PROVIDERS: Family Provider Nurse Practitioner Primary Care; PCP Nurse Practitioner Primary Care; Referring Provider Internal Medicine Cardiovascular Disease; Visit Provider Internal Medicine Cardiovascular Disease
DX: I51.3 Intracardiac thrombosis, not elsewhere classified (principal); I25.5 Ischemic cardiomyopathy; Z79.01 Long term (current) use of anticoagulants; Z86.73 Personal history of transient ischemic attack (TIA), and cerebral infarction without residual deficits
CPT/HCPCS: 36416; 85610

== ENCOUNTER → 2022-04-13 | Outpatient (CLI) | payer MEDICARE, OTHER, SELFPAY ==
--- NOTE | 2022-04-13 08:33 | ECHOD_ITS ---
Reason For Study: APICAL THROMBUS Procedure This was a 2D Doppler, Color Flow transthoracic echocardiogram. The study was technically difficult. Exam performed in department. Definity deferred due to PAP >75mmHg. Left Ventricle Severely dilated left ventricle. Severe segmental systolic dysfunction (see wall motion). The estimated ejection fraction is 20 %. Stage 3 diastolic dysfunction. Anterio-Basal: Hypokinetic. Lateral-Basal: Hypokinetic. Posterior-Basal: Hypokinetic. Infero-Basal: Hypokinetic. Basal inferoseptal: Severely Hypokinetic. Basal anteroseptal: Akinetic. Mid-Anterior : Dyskinetic. Mid- Lateral : Hypokinetic. Mid-Posterior: Hypokinetic. Mid-Inferior: Akinetic. Mid-inferoseptal : Severly Hypokinetic. Mid-anteroseptal : Akinetic. [place] : Akinetic. Right Ventricle Normal RV size. Normal systolic function. Atria The left atrium is moderately enlarged. Normal right atrium. No doppler evidence for ASD. Mitral Valve There is no mitral annular calcification. Mild diffuse mitral valve thickening. Moderate (2+) eccentric mitral valve insufficiency. Tricuspid Valve Normal tricuspid valve. Mild tricuspid valve insufficiency. Right ventricular systolic pressure estimated to be 75 mmHg. Severe pulmonary hypertension. Aortic Valve Normal aortic valve. Mild diffuse aortic valve thickening. Mild focal aortic valve calcification. Trivial aortic valve insufficiency. Pulmonic Valve The pulmonic valve is not well visualized. Trivial pulmonic valve insufficiency. Great Vessels Normal sized aortic root. Pericardium/Pleural No pericardial effusion. MMode/2D Measurements & Calculations LVIDd: 7.1 cm IVSd: 0.70 cm Ao root diam: 3.4 cm LVIDs: 5.9 cm LVPWd: 0.82 cm RVDd: 4.3 cm FS: 16.3 % LAV(MOD-bp): 100.2 ml LA A4 area: 28.9 cm2 LA dimension(2D): 5.0 cm LAV(MOD-bp) Indexed: 53.7 ml/m2 LAV(MOD-sp2): 85.4 ml LAV(MOD-sp4): 107.0 ml RA A4 area: 18.1 cm2 Time Measurements MV dec time: 0.13 sec Doppler Measurements & Calculations MV E max jorge luis: 88.8 cm/sec Lat Peak E' Jorge Luis: 6.7 cm/sec Med Peak E' Jorge Luis: 3.7 cm/sec MV A max jorge luis: 29.4 cm/sec E/E' lat: 13.2 E/E' med: 24.2 MV E/A: 3.0 MV dec slope: 691.2 cm/sec2 Ao V2 max: 107.7 cm/sec LV V1 max: 61.6 cm/sec Ao max P.6 mmHg LV V1 max P.5 mmHg PA V2 max: 77.6 cm/sec PI dec slope: 144.2 cm/sec2 TR max jorge luis: 424.0 cm/sec TR max P.9 mmHg ECHO/Echo Complete Interpretation Summary The study was technically difficult. Severely dilated left ventricle. Severe segmental systolic dysfunction (see wall motion). The estimated ejection fraction is 20 %. The left atrium is moderately enlarged. Mild diffuse mitral valve thickening. Moderate (2+) eccentric mitral valve insufficiency. Mild tricuspid valve insufficiency. Mild diffuse aortic valve thickening. Mild focal aortic valve calcification. Trivial aortic valve insufficiency. Trivial pulmonic valve insufficiency. Right ventricular systolic pressure estimated to be 75 mmHg. Severe pulmonary hypertension. Stage 3 diastolic dysfunction. Comment: Based upon the 2D echocardiographic images obtained a left ventricular apical thrombus he is not appreciated at this time. Ordering Physician: Temo Agrawal Referring Physician: Pal Yan Performed By: Delaney Rodney, RDCS, RVT
--- NOTE | 2022-04-15 06:39 | PFT ---
INTRODUCTION: The patient is an 81-year-old male that presents for pulmonary function studies secondary to a diagnosis of heart disease. Respiratory therapy reported good patient effort. Bronchodilators were used during testing. INTERPRETATION: Forced expiration spirometry demonstrates no evidence of a large airways obstructive ventilatory defect. Body plethysmography demonstrated a mild restrictive ventilatory impairment with a total lung capacity of 4.03 L, 72% of predicted. Diffusing capacity by single breath CO was within normal limits. It should be noted that the patient had difficulty exhaling for an extended period of time during flow-volume loop testing. IMPRESSION: Isolated mild restrictive ventilatory impairment with preserved diffusing capacity.
== END | disposition home or self-care (01) ==
LOC: CVS 08:33
PROVIDERS: PCP Nurse Practitioner Primary Care; Referring Provider Nurse Practitioner Family; Visit Provider Nurse Practitioner Family
DX: Z79.899 Other long term (current) drug therapy (principal); I25.10 Atherosclerotic heart disease of native coronary artery without angina pectoris; I51.3 Intracardiac thrombosis, not elsewhere classified
CPT/HCPCS: 93306; 94060; 94726; 94729

== ENCOUNTER 2022-04-28 12:22 | Outpatient (RCR) | payer MEDICARE, OTHER, SELFPAY ==
[2022-04-23 21:24] VITALS: BMI 30.2
[2022-04-28 12:35] LABS: INR Fingerstick 1.8; Prothrombin Time Fingerstick 21.3 SEC (11.7-14.9)
== END 2022-04-28 18:00 | disposition home or self-care (01) ==
LOC: LAB 12:22
PROVIDERS: Family Provider Nurse Practitioner Primary Care; PCP Nurse Practitioner Primary Care; Referring Provider Internal Medicine Cardiovascular Disease; Visit Provider Internal Medicine Cardiovascular Disease
DX: I51.3 Intracardiac thrombosis, not elsewhere classified (principal); I25.5 Ischemic cardiomyopathy; Z79.01 Long term (current) use of anticoagulants; Z86.73 Personal history of transient ischemic attack (TIA), and cerebral infarction without residual deficits
CPT/HCPCS: 36416; 85610

== ENCOUNTER 2022-05-27 14:00 | Outpatient (RCR) | payer MEDICARE, OTHER, SELFPAY ==
[2022-05-25 10:07] VITALS: BMI 30.2
[2022-05-27 14:16] LABS: INR Fingerstick 2.3; Prothrombin Time Fingerstick 27.3 SEC (11.7-14.9)
== END 2022-06-23 18:00 | disposition home or self-care (01) ==
LOC: LAB 14:00
PROVIDERS: Family Provider Nurse Practitioner Primary Care; PCP Nurse Practitioner Primary Care; Referring Provider Internal Medicine Cardiovascular Disease; Visit Provider Internal Medicine Cardiovascular Disease
DX: I51.3 Intracardiac thrombosis, not elsewhere classified (principal); I25.5 Ischemic cardiomyopathy; Z79.01 Long term (current) use of anticoagulants; Z86.73 Personal history of transient ischemic attack (TIA), and cerebral infarction without residual deficits
CPT/HCPCS: 36416; 85610

== ENCOUNTER 2022-06-28 13:30 | Outpatient (RCR) | payer MEDICARE, OTHER, SELFPAY ==
[2022-06-23 23:07] VITALS: BMI 30.2
[2022-06-28 13:45] LABS: INR Fingerstick 2.5; Prothrombin Time Fingerstick 28.7 SEC (11.7-14.9)
== END 2022-06-28 18:00 | disposition home or self-care (01) ==
LOC: LAB 13:30
PROVIDERS: Family Provider Nurse Practitioner Primary Care; PCP Nurse Practitioner Primary Care; Referring Provider Internal Medicine Cardiovascular Disease; Visit Provider Internal Medicine Cardiovascular Disease
DX: I51.3 Intracardiac thrombosis, not elsewhere classified (principal); I25.5 Ischemic cardiomyopathy; Z79.01 Long term (current) use of anticoagulants; Z86.73 Personal history of transient ischemic attack (TIA), and cerebral infarction without residual deficits
CPT/HCPCS: 36416; 85610

== ENCOUNTER 2022-07-29 11:50 | Outpatient (RCR) | payer MEDICARE, OTHER, SELFPAY ==
[2022-07-25 02:12] VITALS: BMI 30.2
[2022-07-29 12:31] LABS: INR Fingerstick 2.4; Prothrombin Time Fingerstick 28.4 SEC (11.7-14.9)
== END 2022-07-29 13:00 | disposition home or self-care (01) ==
LOC: LAB 11:50
PROVIDERS: Family Provider Nurse Practitioner Primary Care; PCP Nurse Practitioner Primary Care; Referring Provider Internal Medicine Cardiovascular Disease; Visit Provider Internal Medicine Cardiovascular Disease
DX: I51.3 Intracardiac thrombosis, not elsewhere classified (principal); I25.5 Ischemic cardiomyopathy; Z79.01 Long term (current) use of anticoagulants; Z86.73 Personal history of transient ischemic attack (TIA), and cerebral infarction without residual deficits
CPT/HCPCS: 36416; 85610

== ENCOUNTER → 2022-08-02 | Outpatient (CLI) | payer MEDICARE, OTHER, SELFPAY ==
[2022-08-02 11:44] LABS: Absolute Lymphocyte Count 0.94 X10^3/uL (0.83-4.51); Absolute Neutrophil Count 5.7 X10^3/uL (2.0-7.7); Basophil# 0.04 X10^3/uL; Basophil% 0.5 % (0-1); Eosinophil# 0.05 X10^3/uL; Eosinophils% 0.7 % (0-5); Lymphocyte # 0.94 X10^3/ul (0.83-4.51); Lymphocyte % 12.9 % (19-41); Mean Corp Hgb Conc 32.6 g/dL (32-36); Mean Corpuscular Hgb 30.9 pg (27.0-32.0); Mean Corpuscular Volume 94.8 fL (80-94); Mean Platelet Vol. 10.8 fl (6.2-12.0); Monocyte# 0.54 X10^3/uL; Monocyte% 7.4 % (0-10); NRBC Flagged by Analyzer 0 % (0-5); Neutrophil # 5.71 X10^3/uL (2.7-7.7); Neutrophil % 78.1 % (47-70); Platelet Count 180 K/mm3 (150-450); RBC Distribution Width CV 13.6 % (11.6-14.6); RBC Distribution Width SD 47.7 fl (35.1-43.9); Red Blood Count 4.85 M/mm3 (4.6-6.2); White Blood Count 7.3 K/mm3 (4.4-11.0)
[2022-08-02 12:14] LABS: BNP,B-Type NATRIURETIC PEPTIDE 909.5 pg/mL (0-100)
[2022-08-02 12:20] LABS: Anion Gap 8 (5-15); BUN 26 mg/dL (7-18); BUN/Creat Ratio 17.1 RATIO (10-20); Calcium,Total 8.7 mg/dL (8.5-10.1); Chloride 105 mmol/L (98-107); Creatinine, Serum 1.52 mg/dL (0.70-1.30); EST Glomerular Filtration Rate 47 mL/min (>60); Est Glom Filt Rate - Afr Amer 57 mL/min (>60); Glucose 93 mg/dL (74-106); Magnesium 2.4 mg/dL (1.6-2.6); Potassium 3.9 mmol/L (3.5-5.1); Sodium Level 143 mmol/L (136-145); T4 Free Direct 1.71 ng/dL (0.76-1.46); Thyroid Stim Hormone (TSH) 5.19 uIU/mL (0.358-3.74)
== END | disposition home or self-care (01) ==
LOC: LAB 11:03
PROVIDERS: PCP Nurse Practitioner Primary Care; Referring Provider Nurse Practitioner Family; Visit Provider Nurse Practitioner Family
DX: I50.22 Chronic systolic (congestive) heart failure (principal); I25.5 Ischemic cardiomyopathy; I25.10 Atherosclerotic heart disease of native coronary artery without angina pectoris; R42 Dizziness and giddiness; Z79.899 Other long term (current) drug therapy
CPT/HCPCS: 36415; 80048; 83735; 83880; 84439; 84443; 85025

== ENCOUNTER → 2022-08-09 | Outpatient (CLI) | payer MEDICARE, OTHER, SELFPAY ==
--- NOTE | 2022-08-09 12:43 | CDU_ITS ---
Reason For Study: Dizziness Rt. Velocities/BP Lt. Velocities/BP Prox CCA 43.7/8.8 cm/sec. Prox CCA 69.5/4.4 cm/sec. Mid CCA 47.8/9.1 cm/sec. Mid CCA 62.1/11.8 cm/sec. Dist CCA 39.3/6.2 cm/sec. Dist CCA 62.1/11.8 cm/sec. Prox ICA 108.9/16.7 cm/sec. Prox ICA 59.1/13.8 cm/sec. Mid ICA 176.9/34.2 cm/sec. Mid ICA 90.6/23.0 cm/sec. Dist ICA 119.9/21.1 cm/sec. Dist ICA 69.0/13.6 cm/sec. Rt. ICA/CCA = 3.7. Lt. ICA/CCA = 1.5. Prox ECA 113.3/5.7 cm/sec. Prox ECA 107.6/5.6 cm/sec. Rt. Vert. 26.1/6.2 cm/sec. Lt. Vert. 51.1/10.6 cm/sec. Right Extracranial There is heterogeneous, irregular atherosclerotic plaque noted in the right common carotid artery. There is heterogeneous, irregular atherosclerotic plaque noted in the right internal carotid artery. There is heterogeneous, irregular atherosclerotic plaque noted in the right external carotid artery. Antegrade flow is noted in the right vertebral artery. Left Extracranial There is intimal thickening but no significant atherosclerotic plaque noted in the left common carotid artery. There is heterogeneous, irregular atherosclerotic plaque noted in the left internal carotid artery. There is heterogeneous, irregular atherosclerotic plaque noted in the left external carotid artery. Antegrade flow is noted in the left vertebral artery. Procedure Carotid Duplex [id number]. This is a Carotid Duplex examination using B-mode, color flow and specral Doppler. The exam was diagnostic. Exam performed in department. VL/Carotid Duplex Ultrasound Interpretation Summary Moderate (50-69%) stenosis right extracranial internal carotid. Mild (<50%) stenosis left extracranial internal carotid. Patent and antegrade vertebrals bilaterally. Ordering Physician: Temo Agrawal Performed By: Humza Hodgson RVT
== END | disposition home or self-care (01) ==
LOC: CVS 12:42
PROVIDERS: PCP Nurse Practitioner Primary Care; Visit Provider Nurse Practitioner Family
DX: I65.22 Occlusion and stenosis of left carotid artery (principal); R42 Dizziness and giddiness; I25.5 Ischemic cardiomyopathy; I25.10 Atherosclerotic heart disease of native coronary artery without angina pectoris; Z79.899 Other long term (current) drug therapy
CPT/HCPCS: 93880

== ENCOUNTER 2022-09-21 12:25 | Outpatient (RCR) | payer MEDICARE, OTHER, SELFPAY ==
[2022-08-25 08:13] VITALS: BMI 30.2
[2022-09-07 12:02] LABS: International Normalized Ratio 3.6; Prothrombin Time (Protime)PT. 35.9 SECONDS (11.7-14.9)
[2022-09-07 12:31] LABS: Anion Gap 6 (5-15); BUN 16 mg/dL (7-18); BUN/Creat Ratio 9.2 RATIO (10-20); Calcium,Total 8.9 mg/dL (8.5-10.1); Chloride 100 mmol/L (98-107); Creatinine, Serum 1.74 mg/dL (0.70-1.30); EST Glomerular Filtration Rate 40 mL/min (>60); Est Glom Filt Rate - Afr Amer 48 mL/min (>60); Glucose 192 mg/dL (74-106); Potassium 4.4 mmol/L (3.5-5.1); Sodium Level 135 mmol/L (136-145); T4 Free Direct 1.55 ng/dL (0.76-1.46); Thyroid Stim Hormone (TSH) 1.71 uIU/mL (0.358-3.74)
[2022-09-21 12:40] LABS: INR Fingerstick 2.3
== END 2022-09-21 18:00 | disposition home or self-care (01) ==
LOC: LAB 12:25
PROVIDERS: Nurse Practitioner Family; Family Provider Nurse Practitioner Primary Care; PCP Nurse Practitioner Primary Care; Referring Provider Internal Medicine Cardiovascular Disease; Visit Provider Internal Medicine Cardiovascular Disease
DX: I51.3 Intracardiac thrombosis, not elsewhere classified (principal); I25.5 Ischemic cardiomyopathy; Z79.01 Long term (current) use of anticoagulants; Z86.73 Personal history of transient ischemic attack (TIA), and cerebral infarction without residual deficits; E03.9 Hypothyroidism, unspecified; Z79.899 Other long term (current) drug therapy; R42 Dizziness and giddiness; Z95.1 Presence of aortocoronary bypass graft; I10 Essential (primary) hypertension; E78.00 Pure hypercholesterolemia, unspecified
CPT/HCPCS: 36415; 36416; 80048; 84439; 84443; 85610

== ENCOUNTER 2022-10-25 14:10 | Outpatient (RCR) | payer MEDICARE, OTHER, SELFPAY ==
[2022-09-21 20:03] VITALS: BMI 30.2
[2022-10-25 14:20] LABS: INR Fingerstick 2.9; Prothrombin Time Fingerstick 31.4 SEC (11.7-14.9)
== END 2022-11-21 01:16 | disposition home or self-care (01) ==
LOC: LAB 14:10
PROVIDERS: Family Provider Nurse Practitioner Primary Care; PCP Nurse Practitioner Primary Care; Referring Provider Internal Medicine Cardiovascular Disease; Visit Provider Internal Medicine Cardiovascular Disease
DX: I51.3 Intracardiac thrombosis, not elsewhere classified (principal); I25.5 Ischemic cardiomyopathy; Z79.01 Long term (current) use of anticoagulants; Z86.73 Personal history of transient ischemic attack (TIA), and cerebral infarction without residual deficits
CPT/HCPCS: 36416; 85610

== ENCOUNTER 2022-11-30 14:03 | Outpatient (RCR) | payer MEDICARE, OTHER, SELFPAY ==
[2022-11-21 01:16] VITALS: BMI 30.2
[2022-11-30 14:10] LABS: INR Fingerstick 2.2; Prothrombin Time Fingerstick 23.6 SEC (11.7-14.9)
== END 2022-12-22 18:00 | disposition home or self-care (01) ==
LOC: LAB 14:03
PROVIDERS: Family Provider Nurse Practitioner Primary Care; PCP Nurse Practitioner Primary Care; Referring Provider Internal Medicine Cardiovascular Disease; Visit Provider Internal Medicine Cardiovascular Disease
DX: I51.3 Intracardiac thrombosis, not elsewhere classified (principal); I25.5 Ischemic cardiomyopathy; Z79.01 Long term (current) use of anticoagulants; Z86.73 Personal history of transient ischemic attack (TIA), and cerebral infarction without residual deficits
CPT/HCPCS: 36416; 85610

== ENCOUNTER 2023-01-06 14:15 | Outpatient (RCR) | payer MEDICARE, OTHER, SELFPAY ==
[2022-12-23 08:57] VITALS: BMI 30.2
[2023-01-06 14:24] LABS: INR Fingerstick 2.2; Prothrombin Time Fingerstick 23.7 SEC (11.7-14.9)
== END 2023-01-06 18:00 | disposition home or self-care (01) ==
LOC: LAB 14:15
PROVIDERS: Family Provider Nurse Practitioner Primary Care; PCP Nurse Practitioner Primary Care; Referring Provider Internal Medicine Cardiovascular Disease; Visit Provider Internal Medicine Cardiovascular Disease
DX: I51.3 Intracardiac thrombosis, not elsewhere classified (principal); I25.5 Ischemic cardiomyopathy; Z79.01 Long term (current) use of anticoagulants; Z86.73 Personal history of transient ischemic attack (TIA), and cerebral infarction without residual deficits
CPT/HCPCS: 36416; 85610

== ENCOUNTER 2023-01-31 13:05 | Outpatient (RCR) | payer MEDICARE, OTHER, SELFPAY ==
[2023-01-21 22:02] VITALS: BMI 30.2
[2023-02-01 07:43] LABS: INR Fingerstick 2.2; Prothrombin Time Fingerstick 24.1 SEC (11.7-14.9)
== END 2023-02-21 18:00 | disposition home or self-care (01) ==
LOC: LAB 13:05
PROVIDERS: Internal Medicine Cardiovascular Disease; Family Provider Nurse Practitioner Primary Care; PCP Nurse Practitioner Primary Care; Referring Provider Nurse Practitioner Family; Visit Provider Nurse Practitioner Family
DX: I51.3 Intracardiac thrombosis, not elsewhere classified (principal); I25.5 Ischemic cardiomyopathy; Z79.01 Long term (current) use of anticoagulants; Z86.73 Personal history of transient ischemic attack (TIA), and cerebral infarction without residual deficits
CPT/HCPCS: 36416; 85610

== ENCOUNTER 2023-03-07 12:25 | Outpatient (RCR) | payer MEDICARE, OTHER, SELFPAY ==
[2023-02-22 00:36] VITALS: BMI 30.2
[2023-03-07 12:37] LABS: INR Fingerstick 1.5; Prothrombin Time Fingerstick 17.1 SEC (11.7-14.9)
[2023-03-07 12:37] LABS: INR Fingerstick 1.6; Prothrombin Time Fingerstick 17.7 SEC (11.7-14.9)
== END 2023-03-07 18:00 | disposition home or self-care (01) ==
LOC: LAB 12:25
PROVIDERS: Family Provider Nurse Practitioner Primary Care; PCP Nurse Practitioner Primary Care; Referring Provider Nurse Practitioner Family; Visit Provider Nurse Practitioner Family
DX: I51.3 Intracardiac thrombosis, not elsewhere classified (principal); Z79.01 Long term (current) use of anticoagulants; Z86.73 Personal history of transient ischemic attack (TIA), and cerebral infarction without residual deficits; I74.2 Embolism and thrombosis of arteries of the upper extremities
CPT/HCPCS: 36416; 85610

== ENCOUNTER 2023-04-12 11:43 | Outpatient (RCR) | payer MEDICARE, OTHER, SELFPAY ==
[2023-03-24 22:42] VITALS: BMI 30.2
[2023-04-04 13:57] LABS: INR Fingerstick 1.4; Prothrombin Time Fingerstick 16.2 SEC (11.7-14.9)
[2023-04-12 11:57] LABS: INR Fingerstick 1.6; Prothrombin Time Fingerstick 17.7 SEC (11.7-14.9)
== END 2023-04-12 18:00 | disposition home or self-care (01) ==
LOC: LAB 11:43
PROVIDERS: Family Provider Nurse Practitioner Primary Care; PCP Nurse Practitioner Primary Care; Referring Provider Nurse Practitioner Family; Visit Provider Nurse Practitioner Family
DX: I51.3 Intracardiac thrombosis, not elsewhere classified (principal); Z79.01 Long term (current) use of anticoagulants; Z86.73 Personal history of transient ischemic attack (TIA), and cerebral infarction without residual deficits; I74.2 Embolism and thrombosis of arteries of the upper extremities
CPT/HCPCS: 36416; 85610

== ENCOUNTER 2023-05-06 13:56 | Outpatient (RCR) | payer MEDICARE, OTHER, SELFPAY ==
[2023-04-24 02:38] VITALS: BMI 30.2
[2023-05-06 14:20] LABS: Prothrombin Time Fingerstick 22.1 SEC (11.7-14.9)
== END 2023-05-06 18:00 | disposition home or self-care (01) ==
LOC: LAB 13:56
PROVIDERS: Family Provider Nurse Practitioner Primary Care; PCP Nurse Practitioner Primary Care; Referring Provider Nurse Practitioner Family; Visit Provider Nurse Practitioner Family
DX: I51.3 Intracardiac thrombosis, not elsewhere classified (principal); Z79.01 Long term (current) use of anticoagulants; Z86.73 Personal history of transient ischemic attack (TIA), and cerebral infarction without residual deficits; I74.2 Embolism and thrombosis of arteries of the upper extremities
CPT/HCPCS: 36416; 85610

== ENCOUNTER 2023-06-20 12:29 | Outpatient (RCR) | payer MEDICARE, OTHER, SELFPAY ==
[2023-05-24 23:07] VITALS: BMI 30.2
[2023-05-30 16:05] LABS: INR Fingerstick 1.8; Prothrombin Time Fingerstick 19.9 SEC (11.7-14.9)
[2023-06-13 13:04] LABS: INR Fingerstick 1.4; Prothrombin Time Fingerstick 16.2 SEC (11.7-14.9)
[2023-06-20 13:51] LABS: International Normalized Ratio 1.6; Prothrombin Time (Protime)PT. 19.2 SECONDS (11.7-14.9)
== END 2023-06-23 18:00 | disposition home or self-care (01) ==
LOC: LAB 12:29
PROVIDERS: Family Provider Nurse Practitioner Primary Care; PCP Nurse Practitioner Primary Care; Referring Provider Nurse Practitioner Family; Visit Provider Nurse Practitioner Family
DX: I51.3 Intracardiac thrombosis, not elsewhere classified (principal); Z79.01 Long term (current) use of anticoagulants; Z86.73 Personal history of transient ischemic attack (TIA), and cerebral infarction without residual deficits; I74.2 Embolism and thrombosis of arteries of the upper extremities
CPT/HCPCS: 36415; 36416; 85610

== ENCOUNTER 2023-07-20 13:19 | Outpatient (RCR) | payer MEDICARE, OTHER, SELFPAY ==
[2023-06-24 03:43] VITALS: BMI 30.2
[2023-07-04 13:38] LABS: International Normalized Ratio 1.5; Prothrombin Time (Protime)PT. 18.3 SECONDS (11.7-14.9)
[2023-07-20 13:26] LABS: INR Fingerstick 2.2; Prothrombin Time Fingerstick 23.8 SEC (11.7-14.9)
== END 2023-07-24 18:00 | disposition home or self-care (01) ==
LOC: LAB 13:19
PROVIDERS: Family Provider Nurse Practitioner Primary Care; PCP Nurse Practitioner Primary Care; Referring Provider Nurse Practitioner Family; Visit Provider Nurse Practitioner Family
DX: Z79.01 Long term (current) use of anticoagulants (principal); I51.3 Intracardiac thrombosis, not elsewhere classified; Z86.73 Personal history of transient ischemic attack (TIA), and cerebral infarction without residual deficits; I74.2 Embolism and thrombosis of arteries of the upper extremities
CPT/HCPCS: 36415; 36416; 85610

== ENCOUNTER → 2023-08-01 | Outpatient (CLI) | payer MEDICARE, OTHER, SELFPAY ==
--- NOTE | 2023-08-01 13:14 | MRI_ITS ---
EXAM: MR LUMBAR SPINE WITHOUT INTRAVENOUS CONTRAST CLINICAL INDICATION: Pain TECHNIQUE: Multiplanar and multisequence MR images of the lumbar spine without intravenous contrast. COMPARISON: No relevant prior studies available. FINDINGS: VERTEBRAE: Minimal dextroscoliosis of the upper thoracic spine. No significant compression of the lumbar vertebral bodies. No bone marrow edema. SPINAL CORD: Normal. Normal position and signal intensity of the conus medullaris. SOFT TISSUES: Normal. DISCS/SPINAL CANAL/NEURAL FORAMINA: T12-L1: Prominent disc space loss associated with irregular contour of the endplates. Mild Modic type II changes. Prominent circumferential disc bulging causes mild compression of the thecal sac and moderate narrowing of the neural foramina. L1-L2: Marked loss in disc space associated with prominent vertebral body osteophytosis. Mild to moderate facet arthropathy. Mild spinal stenosis and severe left and moderate right neural foraminal narrowing due to these changes. L2-L3: Moderate disc space narrowing, moderate vertebral body osteophytosis, facet arthropathy and mild ligamentous hypertrophy results in mild to moderate spinal stenosis and moderate bilateral neural foraminal narrowing. L3-L4: Moderate disc space narrowing, vertebral body hypertrophy, facet arthropathy and ligamentous hypertrophy results in mild spinal stenosis and moderate to severe bilateral neural foraminal narrowing. L4-L5: Significant loss in vertebral body height. Broad-based disc protrusion, facet arthropathy and ligamentous hypertrophy results in moderate spinal stenosis and severe right and moderate to severe left neural foraminal narrowing. L5-S1: Moderate to severe narrowing of the posterior portion of the intervertebral disc. Prominent central disc herniation, facet arthropathy and ligamentous hypertrophy results in mild spinal stenosis and severe bilateral neural foraminal narrowing. 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 Electronically Signed: Hunter Weldon MD at 8:41 EST ,
== END | disposition home or self-care (01) ==
LOC: MRI 13:11
PROVIDERS: PCP Nurse Practitioner Primary Care; Visit Provider Physician Assistant
DX: M54.16 Radiculopathy, lumbar region (principal); I74.2 Embolism and thrombosis of arteries of the upper extremities; I51.3 Intracardiac thrombosis, not elsewhere classified; Z86.73 Personal history of transient ischemic attack (TIA), and cerebral infarction without residual deficits; Z79.01 Long term (current) use of anticoagulants
CPT/HCPCS: 36416; 72148; 85610

== ENCOUNTER 2023-08-22 11:17 | Outpatient (RCR) | payer MEDICARE, OTHER, SELFPAY ==
[2023-07-24 20:41] VITALS: BMI 30.2
[2023-08-02 07:39] LABS: INR Fingerstick 2.9
[2023-08-18 14:07] LABS: INR Fingerstick 7.1; Prothrombin Time Fingerstick 64.9 SEC (11.7-14.9)
[2023-08-18 15:55] LABS: Prothrombin Time (Protime)PT. 62.9 SECONDS (11.7-14.9)
[2023-08-18 16:01] LABS: International Normalized Ratio 7.2
[2023-08-22 11:38] LABS: INR Fingerstick 2.5; Prothrombin Time Fingerstick 25.2 SEC (11.7-14.9)
== END 2023-08-22 18:00 | disposition home or self-care (01) ==
LOC: LAB 11:17
PROVIDERS: Family Provider Nurse Practitioner Primary Care; PCP Nurse Practitioner Primary Care; Referring Provider Nurse Practitioner Family; Visit Provider Nurse Practitioner Family
DX: Z79.01 Long term (current) use of anticoagulants (principal); I51.3 Intracardiac thrombosis, not elsewhere classified; Z86.73 Personal history of transient ischemic attack (TIA), and cerebral infarction without residual deficits; I74.2 Embolism and thrombosis of arteries of the upper extremities
CPT/HCPCS: 36415; 36416; 85610

== ENCOUNTER 2023-09-13 12:50 | Outpatient (RCR) | payer MEDICARE, OTHER, SELFPAY ==
[2023-08-24 22:04] VITALS: BMI 30.2
[2023-09-06 15:04] LABS: INR Fingerstick 1.4; Prothrombin Time Fingerstick 15.7 SEC (11.7-14.9)
[2023-09-13 12:59] LABS: INR Fingerstick 1.7
== END 2023-09-22 18:00 | disposition home or self-care (01) ==
LOC: LAB 12:50
PROVIDERS: Family Provider Nurse Practitioner Primary Care; PCP Nurse Practitioner Primary Care; Referring Provider Nurse Practitioner Family; Visit Provider Nurse Practitioner Family
DX: Z79.01 Long term (current) use of anticoagulants (principal); I51.3 Intracardiac thrombosis, not elsewhere classified; Z86.73 Personal history of transient ischemic attack (TIA), and cerebral infarction without residual deficits; I74.2 Embolism and thrombosis of arteries of the upper extremities
CPT/HCPCS: 36416; 85610

== ENCOUNTER 2023-10-21 11:26 | Outpatient (RCR) | payer MEDICARE, OTHER, SELFPAY ==
[2023-09-22 22:34] VITALS: BMI 30.2
[2023-09-27 15:07] LABS: INR Fingerstick 2.1; Prothrombin Time Fingerstick 22.1 SEC (11.7-14.9)
[2023-10-24 08:41] LABS: INR Fingerstick 1.6; Prothrombin Time Fingerstick 17.7 SEC (11.7-14.9)
== END 2023-10-22 18:00 | disposition home or self-care (01) ==
LOC: LAB 11:26
PROVIDERS: Family Provider Nurse Practitioner Primary Care; PCP Nurse Practitioner Primary Care; Referring Provider Nurse Practitioner Family; Visit Provider Nurse Practitioner Family
DX: Z79.01 Long term (current) use of anticoagulants (principal); I51.3 Intracardiac thrombosis, not elsewhere classified; Z86.73 Personal history of transient ischemic attack (TIA), and cerebral infarction without residual deficits; I74.2 Embolism and thrombosis of arteries of the upper extremities
CPT/HCPCS: 36416; 85610

== ENCOUNTER 2023-11-21 13:21 | Outpatient (RCR) | payer MEDICARE, OTHER, SELFPAY ==
[2023-10-22 22:28] VITALS: BMI 30.2
[2023-11-07 12:18] LABS: INR Fingerstick 1.8; Prothrombin Time Fingerstick 19.3 SEC (11.7-14.9)
[2023-11-21 14:17] LABS: International Normalized Ratio 2.9; Prothrombin Time (Protime)PT. 30.1 SECONDS (11.7-14.9)
== END 2023-11-22 23:04 | disposition home or self-care (01) ==
LOC: LAB 13:21
PROVIDERS: Family Provider Nurse Practitioner Primary Care; PCP Nurse Practitioner Primary Care; Referring Provider Nurse Practitioner Family; Visit Provider Nurse Practitioner Family
DX: Z79.01 Long term (current) use of anticoagulants (principal); I51.3 Intracardiac thrombosis, not elsewhere classified; Z86.73 Personal history of transient ischemic attack (TIA), and cerebral infarction without residual deficits; I74.2 Embolism and thrombosis of arteries of the upper extremities
CPT/HCPCS: 36415; 36416; 85610

== ENCOUNTER 2023-12-05 15:02 | Outpatient (RCR) | payer MEDICARE, OTHER, SELFPAY ==
[2023-11-22 23:04] VITALS: BMI 30.2
[2023-12-05 15:12] LABS: INR Fingerstick 2.4; Prothrombin Time Fingerstick 24.6 SEC (11.7-14.9)
== END 2023-12-05 18:00 | disposition home or self-care (01) ==
LOC: LAB 15:02
PROVIDERS: Family Provider Nurse Practitioner Primary Care; PCP Nurse Practitioner Primary Care; Referring Provider Nurse Practitioner Family; Visit Provider Nurse Practitioner Family
DX: Z79.01 Long term (current) use of anticoagulants (principal); I51.3 Intracardiac thrombosis, not elsewhere classified; Z86.73 Personal history of transient ischemic attack (TIA), and cerebral infarction without residual deficits; I74.2 Embolism and thrombosis of arteries of the upper extremities
CPT/HCPCS: 36416; 85610

== ENCOUNTER 2023-12-15 10:15 | Emergency (ER) | payer MEDICARE, OTHER, SELFPAY ==
[2023-12-15 10:17] VITALS: BP 150/89; PULSE 73; RESP 21; TEMP 36.6; O2SAT 96; BMI 26.2
--- NOTE | 2023-12-15 10:25 | RAD_ITS ---
STUDY: X-RAY CHEST REASON FOR EXAM: Male, 83 years old. Cough with chest pain. TECHNIQUE: Frontal and lateral views of the chest. COMPARISON: March 18, 2021 FINDINGS: Low volume inspiration with mild diffuse interstitial pattern. Slight increase in small right pleural effusion. Cardiomegaly with sternotomy wires unchanged. Normal mediastinum and giovanni. Normal visualized pulmonary arteries. Aortic tortuosity unchanged. Normal visualized thoracic spine. Normal visualized ribs, clavicles, and shoulders. No abnormality of the visualized soft tissue structures of the upper abdomen. RAD/Chest PA and Lateral IMPRESSION: Cardiomegaly, low volume inspiration, mild diffuse interstitial pattern and slight increase in right pleural effusion. No acute or emergent finding. Electronically Signed: Chet Page MD at 10:58 EDT ,
--- NOTE | 2023-12-15 10:25 | EKG12_ITS ---
Test Reason : CP Blood Pressure : / mmHG Vent. Rate : 075 BPM Atrial Rate : 000 BPM P-R Int : 000 ms QRS Dur : 114 ms QT Int : 438 ms P-R-T Axes : 000 057 094 degrees QTc Int : 489 ms Atrial fibrillation Low voltage QRS Cannot rule out Anterior infarct , age undetermined Abnormal ECG Confirmed by Desmond Drake ([id number]), website/blog editor DEVON LOUIS ([id number]) on 12/16/2023 10:18:12 AM Referred By: Confirmed By:Desmond Drake
--- NOTE | 2023-12-15 10:27 | EDS_ITS ---
HPI History of Present Illness Chief Complaint: Chest Pain Informant: patient and spouse/S.O. Narrative Narrative: Brought in by EMS, spouse is present. Left-sided chest pain rating across persistent since yesterday morning. He has had a nonproductive cough for 1 week. No fevers no myalgias no vomiting or diarrhea. Urine frequency. Reports pain in his back left flank region. No trauma. Reports bypass surgery x 3 vessels however records notes 2 vessels in 2010. He had a defibrillator at that time however removed secondary to infection the same year. He has not had a replacement. He is on warfarin history of blood clots and noted A-fib. Records no blood clots in his upper extremity from thrombus. Hypertension, hyperlipidemia, COPD history. He is on baby aspirin history of coronary disease. He did have a chest x-ray this past Tuesday from his PCP with his cough due to reported history of pleural effusion requiring a right-sided thoracentesis in the past. 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 Chronic systolic (congestive) heart failure Ischemic cardiomyopathy History of bacterial endocarditis BPH (benign prostatic hyperplasia) Atherosclerotic heart disease of [place] coronary artery without angina pectoris History of TIA (transient ischemic attack) COPD (chronic obstructive pulmonary disease) Home Medications ?Medication ?Instructions ?Recorded ?Last Taken ?Type pravastatin 40 mg tablet 40 mg PO QHS cholesterol 04/29/16 04/15/18 History aspirin 81 mg chewable tablet 81 mg PO DAILY #30 tabs 05/24/18 02/25/20 Rx nitroglycerin 0.4 mg sublingual 0.4 mg sublingual Q5-15M PRN chest 10/13/20 Unknown Rx tablet pain #25 tabs brimonidine 0.2 % eye drops 1 drp ophthalmic (eye) BID 08/02/22 Unknown History furosemide 40 mg tablet See Rx Instructions .Route 12/15/22 Unknown Rx .COMPLEX #90 tabs sacubitril 24 mg-valsartan 26 mg 0.5 tab PO .COMPLEX #90 tabs 01/13/23 Unknown Rx tablet (Entresto) levothyroxine 25 mcg tablet 25 mcg PO DAILY 06/13/23 Unknown History albuterol sulfate 90 mcg/actuation 1 puff inhalation Q4H PRN PRN 12/15/23 Unknown History aerosol inhaler wheezing prednisone 20 mg tablet 40 mg (2 x 20 mg) PO DAILY #8 12/15/23 Unknown Rx TABLETS warfarin 1 mg tablet 1 mg PO DAILY 12/15/23 Unknown History Allergy/AdvReac Type Severity Reaction Status Date / Time amlodipine AdvReac Mild headaches Verified 12/15/23 10:17 Family History Father , age 70 Colon cancer Mother Myocardial infarction CAD (coronary artery disease) Brother CAD (coronary artery disease) Myocardial infarction Brother CAD (coronary artery disease) Myocardial infarction Surgical History History of tonsillectomy History of coronary artery bypass graft x 2 (~01/14/11) History of right and left heart catheterization Social History Smoking Status: Former smoker quit date: 07/25/72 alcohol intake: current alcohol intake frequency: holidays/special occasions only substance use type: does not use caffeine: No ROS ROS ED Constitutional Constitutional ED: Denies chills, fever(s) or sweats Eyes Eyes: Denies change in vision ENT ENT ED: Denies dysphagia or sore throat Cardiovascular Cardiovascular: Reports chest pain; Denies leg edema, palpitations or racing heartbeat Respiratory/Chest Respiratory/Chest: Reports cough; Denies dyspnea or dyspnea on exertion Gastrointestinal Gastrointestinal: Denies abdominal pain, diarrhea, nausea or vomiting Genitourinary Genitourinary ED: Reports urinary frequency; Denies dysuria or hematuria Musculoskeletal Musculoskeletal: Reports back pain; Denies extremity pain or neck pain Integumentary Denies rash or wounds Neurologic Neurologic: Denies headache(s), paresthesias or weakness EXAM Physical Exam Const Vital Signs: 12/15/23 10:17 12/15/23 10:36 12/15/23 11:16 Temperature 98 F Temperature Source Oral Pulse Rate 73 56 L Respiratory Rate 21 H 16 Respiratory Effort Normal Blood Pressure 150/89 H 150/104 H Blood Pressure Mean 109 119 Pulse Ox 96 97 Oxygen Delivery Method Room Air Room Air 12/15/23 12:00 12/15/23 12:31 Temperature 98.5 F Temperature Source Pulse Rate 45 L 57 L Respiratory Rate 19 H 13 Respiratory Effort Blood Pressure 133/74 H 133/84 H Blood Pressure Mean 93 100 Pulse Ox 97 98 Oxygen Delivery Method Room Air Positive well nourished and well developed General Appearance ED: well developed and NAD HEENT Reports moist mucous membranes normocephalic and atraumatic Eyes EOMs intact bilaterally and conjunctivae normal General Eye ED: Yes normal appearance of both eyes Neck no lymphadenopathy and supple General: Negative for tenderness Chest Wall Chest: Negative for tenderness Resp normal respiratory effort and normal air movement Effort and Inspection: symmetric chest movement; Negative for respiratory distress Cardio regular rate and no murmurs Rhythm: abnormal rhythm Peripheral Pulses: pulses 2+ throughout GI normal to inspection, nondistended, normoactive bowel sounds and non-tender Palpation: Negative for guarding or rebound tenderness present Back/Spine no CVA tenderness and no thoracic nor lumbar tenderness Extremity normal to inspection General Extremety ED: Negative for edema or tenderness General Extremity: Negative for edema Neuro oriented x3 and no sensory deficits noted Sensorium / Orientation: awake and alert Skin no rashes or lesions noted and no wounds MDM MDM MDM Narrative Medical decision making narrative: Interventions / MDM: Differential diagnosis: COPD, A-fib, atypical chest pain Diagnosis considered but do not suspect: ACS however EKG with no ischemic findings and negativeCardiac enzyme. PE however patient chronically anticoagulated with therapeutic INR. Pneumonia however x-ray negative. My EKG interpretation: A-fib 75, no ST or T wave changes. EKG #2 at 1207: A-fib 63, no signs of heart block. Imaging independently reviewed and interpreted by myself: 2 view chest x-ray no pleural effusion no infiltrates. External documents reviewed: N/A Test considered but not ordered:N/A ED course: EKG rate controlled A-fib. Cardiac workup initiated. Urine added with his urine frequency. Troponin normal with persistent chest symptoms negative troponin not likely ACS. Creatinine 1.68 stable from previous. Reevaluation stable urine results normal. Discussed with his cough for a week that is nonproductive occasional wheezing. Discussed viral syndrome with COPD exacerbation. He started on steroids. No antibiotic indicated as he is not make any productive sputum. 1200: Nursing reporting to me that heart rate Going lower, will repeat EKG. Repeat EKG rate controlled A-fib 60s. 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 He is resting. He states normal heart rate 50s and 60s. I will ambulate the patient to evaluate instability. Patient ambulated with no issues. Discharged with return precautions. All questions were answered. Re-evaluation: stable Disposition discussed with patient/family/significant other: Case discussed with consulting clinician: N/A This note was generated with [employer] dictation software. It may contain incorrect words, spelling, and punctuation that were not noted in checking the note before signing. Lab Data Attestation: I reviewed the patient's lab results. Labs: Laboratory Results - last 24 hr 12/15/23 12/15/23 10:30 11:16 WBC 5.2 RBC 5.03 Hgb 14.8 Hct 46.4 MCV 92.2 MCH 29.4 MCHC 31.9 L RDW Std Deviation 44.6 H RDW Coeff of [place] 13.2 Plt Count 107 L MPV 11.4 Immature Gran % (Auto) 0.200 Neut % (Auto) 64.3 Lymph % (Auto) 25.0 [place] % (Auto) 8.4 Eos % (Auto) 1.5 Baso % (Auto) 0.6 Absolute Neuts (auto) 3.4 Absolute Lymphs (auto) 1.30 Nucleated RBC % 0 PT 22.8 H INR 2.0 Sodium 140 Potassium 4.2 Chloride 108 H Carbon Dioxide 25.0 Anion Gap 7 BUN 24 H Creatinine 1.68 H Estim Creat Clear Calc 32.15 Est GFR (MDRD) Af Amer 50 L Est GFR (MDRD) Non-Af 42 L BUN/Creatinine Ratio 14.3 Glucose 92 Calcium 9.5 Troponin I High Sens 26 Urine Color Yellow Urine Clarity Clear Urine pH 6.5 Ur Specific [place] 1.010 Urine Protein 30 H Urine Glucose (UA) Normal Urine Ketones Negative Urine Occult Blood 10 H Urine Nitrite Negative Urine Bilirubin Negative Urine Urobilinogen Normal Ur Leukocyte Esterase Negative Urine RBC 0-5 SEEN Urine WBC 0 SEEN Ur Squamous Epith Cells 0 SEEN Urine Bacteria 0 SEEN Urine Mucus 0 SEEN Radiography Diagnostic Testing: Clinical Impression(s) from Imaging Studies Chest X-Ray 12/15/23 10:25 IMPRESSION: Cardiomegaly, low volume inspiration, mild diffuse interstitial pattern and slight increase in right pleural effusion. No acute or emergent finding. Electronically Signed: Chet Page MD at 10:58 EDT Reading Location ID and State: [address] [place] [address] , Service support , Discharge Plan Triage Chief Complaint: Chest Pain ED Provider: Kp Self Dx/Rx/DC Orders Clinical Impression: COPD exacerbation, Chronic anticoagulation, Atypical chest pain, Atrial fibrillation, controlled Instructions: AFib Dc, COPD Controlled Breathing Dc, ED Chest Pain, Uncertain Cause Prescriptions: New prednisone 20 mg tablet 40 mg PO DAILY Qty: 8 0RF Rx Instructions: Next dose 12/16/2023 No Action aspirin 81 mg tablet,chewable 81 mg PO DAILY Qty: 30 0RF brimonidine 0.2 % drops 1 drp ophthalmic (eye) BID Rx Instructions: one drop bid in right eye pravastatin 40 MG tablet 40 mg PO QHS warfarin 1 mg tablet 1 mg PO DAILY Patient Comments: patient takes 1 mg tuesday - tuesday and 1/2 mg tuesday and tuesday albuterol sulfate 90 mcg/actuation HFA aerosol inhaler 1 puff inhalation Q4H PRN PRN (Reason: wheezing) nitroglycerin 0.4 mg tablet, sublingual 0.4 mg SUBLINGUAL Q5-15M PRN (Reason: chest pain) Qty: 25 3RF furosemide 40 mg tablet See Rx Instructions .ROUTE .COMPLEX Qty: 90 3RF Dose Instruction: TAKE 1 TABLET BY MOUTH DAILY NEEDED FOR DIURESING Rx Instructions: TAKE 1 TABLET BY MOUTH DAILY NEEDED FOR DIURESING Entresto 24-26 mg tablet 0.5 tab PO .COMPLEX Qty: 90 3RF Rx Instructions: 0.5 tabs orally twice daily: YES pt to take 1/2 tablet twice daily due to low BP but needs for CHF; levothyroxine 25 mcg tablet 25 mcg PO DAILY Primary Care Provider: Pal Yan NP Referrals: Pal Yan NP, COMMERCIAL FINANCE ANALYST-C [Primary Care Provider] - 3-5 Days Activity Restrictions/Additional Instructions: Chest x-ray negative. INR 2.0. Cardiac workup negative. Take steroid as prescribed. Follow-up with your doctor. Your symptoms worsen, return to the ED for reevaluation. Print Language: Tajik Disposition Disposition: Home, Self Care Discharge Date/Time: 12/15/23 12:38
[2023-12-15 10:47] LABS: Absolute Neutrophil Count 3.4 X10^3/uL (2.0-7.7); Basophil# 0.03 X10^3/uL; Basophil% 0.6 % (0-1); Eosinophil# 0.08 X10^3/uL; Eosinophils% 1.5 % (0-5); Hematocrit 46.4 % (40-54); Hemoglobin 14.8 g/dL (13.0-16.5); Mean Corp Hgb Conc 31.9 g/dL (32-36); Mean Corpuscular Hgb 29.4 pg (27.0-32.0); Mean Corpuscular Volume 92.2 fL (80-94); Mean Platelet Vol. 11.4 fl (6.2-12.0); Monocyte# 0.44 X10^3/uL; Monocyte% 8.4 % (0-10); NRBC Flagged by Analyzer 0 % (0-5); Neutrophil # 3.35 X10^3/uL (2.7-7.7); Neutrophil % 64.3 % (47-70); Platelet Count 107 K/mm3 (150-450); RBC Distribution Width CV 13.2 % (11.6-14.6); RBC Distribution Width SD 44.6 fl (35.1-43.9); Red Blood Count 5.03 M/mm3 (4.6-6.2); White Blood Count 5.2 K/mm3 (4.4-11.0)
[2023-12-15 10:55] LABS: Prothrombin Time (Protime)PT. 22.8 SECONDS (11.7-14.9)
[2023-12-15 11:00] LABS: Anion Gap 7 (5-15); BUN 24 mg/dL (7-18); BUN/Creat Ratio 14.3 RATIO (10-20); Calcium,Total 9.5 mg/dL (8.5-10.1); Chloride 108 mmol/L (98-107); Creatinine, Serum 1.68 mg/dL (0.70-1.30); EST Glomerular Filtration Rate 42 mL/min (>60); Est Glom Filt Rate - Afr Amer 50 mL/min (>60); Estimated Creatinine Clearance 32.15 ml/min; Glucose 92 mg/dL (74-106); Potassium 4.2 mmol/L (3.5-5.1); Sodium Level 140 mmol/L (136-145); Troponin-I HS 26 pg/mL (3.0-78.0)
[2023-12-15 11:16] VITALS: BP 150/104; PULSE 56; RESP 16; O2SAT 97
[2023-12-15 11:20] LABS: Bacteria 0 SEEN /hpf (None Seen); Mucous, Urine 0 SEEN /hpf (<or=2+); Squamous Epithelial Cells - UA 0 SEEN /hpf (0-5); White Blood Cells 0 SEEN /hpf (0-5)
[2023-12-15 11:21] LABS: Color, Urine Yellow (Yellow); Glucose, Dipstick Normal (Normal); Ketone-Dipstick Negative (Negative); Leukocyte Esterase-Dipstick Negative /ul (Negative); Nitrite-Dipstick Negative (Negative); Occult Blood-Urine 10 /ul (Negative); Protein-Dipstick 30 mg/dl (Negative); Urine Bilirubin Dipstick Negative (Negative); Urine Clarity Clear (Clear); Urine Urobilinogen Normal (Normal); Urine pH 6.5 (5.0 - 8.0)
[2023-12-15 11:56] LABS: Red Blood Cells-Urine 0-5 SEEN /hpf (0-5)
[2023-12-15 12:00] VITALS: BP 133/74; PULSE 45; RESP 19; O2SAT 97
--- NOTE | 2023-12-15 12:02 | EKG12_ITS ---
Test Reason : BRADYCARDIA Blood Pressure : / mmHG Vent. Rate : 063 BPM Atrial Rate : 000 BPM P-R Int : 000 ms QRS Dur : 114 ms QT Int : 478 ms P-R-T Axes : 000 048 082 degrees QTc Int : 489 ms Atrial fibrillation Low voltage QRS Possible Anterolateral infarct , age undetermined Abnormal ECG Confirmed by Desmond Drake ([id number]), sports editor DEVON LOUIS ([id number]) on 12/16/2023 10:18:27 AM Referred By: Confirmed By:Desmond Drake
[2023-12-15] MEDS: predniSONE 20 MG Tablet 40 MG PO (12:05)
[2023-12-15 12:21] VITALS: O2SAT 97
[2023-12-15 12:31] VITALS: BP 133/84; PULSE 57; RESP 13; TEMP 36.9; O2SAT 98
== END 2023-12-15 12:38 | disposition home or self-care (01) ==
PROVIDERS: Emergency Provider Emergency Medicine; PCP Nurse Practitioner Primary Care; Visit Provider Emergency Medicine
DX: J44.1 Chronic obstructive pulmonary disease with (acute) exacerbation (principal); I48.91 Unspecified atrial fibrillation; I10 Essential (primary) hypertension; I25.10 Atherosclerotic heart disease of native coronary artery without angina pectoris; E78.5 Hyperlipidemia, unspecified; R07.89 Other chest pain; Z87.891 Personal history of nicotine dependence; Z79.51 Long term (current) use of inhaled steroids; Z79.82 Long term (current) use of aspirin; Z79.899 Other long term (current) drug therapy; Z79.01 Long term (current) use of anticoagulants; Z86.73 Personal history of transient ischemic attack (TIA), and cerebral infarction without residual deficits
CPT/HCPCS: 71046; 80048; 81001; 84484; 85025; 85610; 93005; 99285; A4216

== ENCOUNTER 2023-12-28 13:16 | Outpatient (RCR) | payer MEDICARE, OTHER, SELFPAY ==
[2023-12-26 09:33] VITALS: BMI 30.2
[2023-12-28 13:31] LABS: INR Fingerstick 2.2; Prothrombin Time Fingerstick 23.1 SEC (11.7-14.9)
== END 2023-12-28 18:00 | disposition home or self-care (01) ==
LOC: LAB 13:16
PROVIDERS: Family Provider Nurse Practitioner Primary Care; PCP Nurse Practitioner Primary Care; Referring Provider Nurse Practitioner Family; Visit Provider Nurse Practitioner Family
DX: Z79.01 Long term (current) use of anticoagulants (principal); I51.3 Intracardiac thrombosis, not elsewhere classified; Z86.73 Personal history of transient ischemic attack (TIA), and cerebral infarction without residual deficits; I74.2 Embolism and thrombosis of arteries of the upper extremities
CPT/HCPCS: 36416; 85610

== ENCOUNTER 2024-02-06 13:09 | Outpatient (RCR) | payer MEDICARE, OTHER, SELFPAY ==
[2024-01-22 22:28] VITALS: BMI 30.2
[2024-01-23 12:52] LABS: INR Fingerstick 1.7; Prothrombin Time Fingerstick 18.6 SEC (11.7-14.9)
[2024-02-06 13:26] LABS: INR Fingerstick 2.1; Prothrombin Time Fingerstick 21.6 SEC (11.7-14.9)
== END 2024-02-22 18:00 | disposition home or self-care (01) ==
LOC: LAB 13:09
PROVIDERS: Family Provider Nurse Practitioner Primary Care; PCP Nurse Practitioner Primary Care; Referring Provider Nurse Practitioner Family; Visit Provider Nurse Practitioner Family
DX: Z79.01 Long term (current) use of anticoagulants (principal); I51.3 Intracardiac thrombosis, not elsewhere classified; Z86.73 Personal history of transient ischemic attack (TIA), and cerebral infarction without residual deficits; I74.2 Embolism and thrombosis of arteries of the upper extremities
CPT/HCPCS: 36416; 85610

== ENCOUNTER 2024-03-05 13:44 | Outpatient (RCR) | payer MEDICARE, OTHER, SELFPAY ==
[2024-02-22 21:27] VITALS: BMI 30.2
[2024-03-05 14:14] LABS: INR Fingerstick 2.3; Prothrombin Time Fingerstick 24.1 SEC (11.7-14.9)
== END 2024-03-05 18:00 | disposition home or self-care (01) ==
LOC: LAB 13:44
PROVIDERS: Family Provider Nurse Practitioner Primary Care; PCP Nurse Practitioner Primary Care; Referring Provider Nurse Practitioner Family; Visit Provider Nurse Practitioner Family
DX: Z79.01 Long term (current) use of anticoagulants (principal); I51.3 Intracardiac thrombosis, not elsewhere classified; Z86.73 Personal history of transient ischemic attack (TIA), and cerebral infarction without residual deficits; I74.2 Embolism and thrombosis of arteries of the upper extremities
CPT/HCPCS: 36416; 85610

== ENCOUNTER 2024-03-30 14:03 | Outpatient (RCR) | payer MEDICARE, OTHER, SELFPAY ==
[2024-03-25 03:59] VITALS: BMI 30.2
[2024-03-30 14:56] LABS: International Normalized Ratio 2.2; Prothrombin Time (Protime)PT. 24.1 SECONDS (11.7-14.9)
== END 2024-03-30 18:00 | disposition home or self-care (01) ==
LOC: LAB 14:03
PROVIDERS: Family Provider Nurse Practitioner Primary Care; PCP Nurse Practitioner Primary Care; Referring Provider Nurse Practitioner Family; Visit Provider Nurse Practitioner Family
DX: Z79.01 Long term (current) use of anticoagulants (principal); I51.3 Intracardiac thrombosis, not elsewhere classified; Z86.73 Personal history of transient ischemic attack (TIA), and cerebral infarction without residual deficits; I74.2 Embolism and thrombosis of arteries of the upper extremities; I48.91 Unspecified atrial fibrillation
CPT/HCPCS: 36415; 85610

== ENCOUNTER 2024-04-23 16:58 | Emergency (ER) | payer MEDICARE, OTHER, SELFPAY ==
[2024-04-23] VITALS (16 sets, daily range): BP systolic 121–173; BP diastolic 60–118; PULSE 61–79; RESP 16–24; TEMP 36.8–37.1; O2SAT 94–99; BMI 25.5
--- NOTE | 2024-04-23 17:06 | EKG12_ITS ---
Test Reason : Blood Pressure : / mmHG Vent. Rate : 082 BPM Atrial Rate : 000 BPM P-R Int : 000 ms QRS Dur : 112 ms QT Int : 386 ms P-R-T Axes : 000 -01 -13 degrees QTc Int : 450 ms Atrial fibrillation with a competing junctional pacemaker with premature ventricular or aberrantly co nducted complexes Confirmed by WILLY BAKER, NELA ([id number]), technical writer and editor ALLIE CALL ([id number]) on 04/24/2024 8:48:56 AM Referred By: KELLI Confirmed By:NELA AGUILERA MD
--- NOTE | 2024-04-23 17:06 | CT_ITS ---
INDICATION: CVA EXAMINATION: CT BRAIN - CT Head Stroke Protocol W/O Contrast Injection TECHNIQUE: Multiple axial images were obtained of the head without intravenous contrast. The protocol utilizes one or more of the following dose reduction techniques: automated exposure control, adjustment of mA and/or kV according to patient size,and/or use of iterative reconstruction technique. IV Contrast dosage and agent: None. RADIATION DOSAGE (If Supplied By Facility): CTDIvol = ( ) mGy, DLP = ( 1625.96 ) mGycm COMPARISON: FINDINGS: BRAIN PARENCHYMA: Moderate periventricular white matter ischemic changes. 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 . No intracranial mass or mass effect. There is preservation of the [place]/white matter interface. Posterior fossa structures are unremarkable. CSF SPACES: Mild atrophy. No hydrocephalus. Basal cisterns are patent. Partial empty sella deformity likely of no significance CALVARIUM, SKULL BASE, PARANASAL SINUSES AND MASTOID AIR CELLS: Mucous retention cyst or polyp in right maxillary sinus. No discrete lytic or blastic abnormalities. ORBITS: Both globes, extraocular muscles, optic nerves and retrobulbar fat appear unremarkable. Mild calcific plaquing of the cavernous carotids CT/STROKE Brain/Head without Cont IMPRESSION: Moderate atrophy and 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 No acute bleed. If concern for acute infarct MRI recommended. N.B. : The above Results were Read Back by Sunny Phan MD to Hermelindo Hawkins DO, and understanding confirmed on 04/23/2024 17:23:37 (ET). Electronically Signed: Sunny Phan MD at 17:25 EDT ,
--- NOTE | 2024-04-23 17:09 | CT_ITS ---
STUDY: CTA HEAD AND NECK WITH CONTRAST REASON FOR EXAM: Male, 83 years old. CVA RADIATION DOSAGE (If Supplied By Facility): CTDIvol = ( 38.75 ) mGy, DLP = ( 796.13 ) mGycm TECHNIQUE: CT angiography was performed with a multi-detector CT scanner. Data acquisition was obtained from the skull base through the vertex following intravenous administration of IV 100mL [id number]-[id number]. MIP images were reconstructed from the axial data set. Post-processing of the angiographic images was performed, with multiplanar reformation and 3D reconstruction. Individualized dose optimization techniques were used for this CT. COMPARISON: No relevant priors. FINDINGS: Normal bilateral petrous carotid arteries. Diffuse calcific plaquing of the right cavernous carotid artery with a normal supraclinoid bifurcation. Diffuse calcific plaquing of the left cavernous carotid artery with a normal supraclinoid bifurcation. Normal right A1 segments of the anterior cerebral artery. Normal left A1 segments of the anterior cerebral artery. Anterior communicating artery not visualized consistent with normal variant Normal bilateral A2 segments of the anterior cerebral arteries. Normal right M1 and M2 segments of the middle cerebral arteries, with a normal M1 bifurcation. Normal left M1 and M2 segments of the middle cerebral arteries, with a normal M1 bifurcation. Posterior communicating arteries are not visualized consistent with normal variant). Mild calcific plaquing of the distal vertebral arteries. Normal basilar artery with a normal basilar bifurcation. The visualized bilateral superior cerebellar (SCA) arteries are normal. Normal bilateral P1, P2 and visualized P3 segments of the posterior cerebral arteries. There is no demonstrated aneurysm of the [place] of [place]. AORTIC ARCH: Multifocal calcific plaquing of the visualized aortic arch. Mild calcific plaquing of the origins of the brachiocephalic, left common carotid, and left subclavian arteries. RIGHT CAROTID ARTERIES: Normal right common carotid artery (CCA). Mild calcific plaquing of the right common carotid bulb. Mild calcific plaquing of the origin of the right internal carotid (ICA) artery without a hemodynamically significant stenosis. Normal visualized cervical portion of the right internal carotid artery. Normal origin of the right external carotid artery (ECA). LEFT CAROTID ARTERIES: Normal left common carotid artery (CCA). Mild calcific plaquing of the left common carotid bulb. Mild calcific plaquing of the origin of the left internal carotid (ICA) artery without a hemodynamically significant stenosis. Normal visualized cervical portion of the left internal carotid artery. Normal origin of the left external carotid artery (ECA). VERTEBRAL ARTERIES: Normal bilateral vertebral arteries. CT/CTA Head AND Neck W/ Contrast IMPRESSION: Mild to moderate atherosclerotic changes without evidence for hemodynamically significant stenosis or major vessel occlusion Electronically Signed: Sunny Phan MD at 17:57 EDT ,
[2024-04-23 17:14] LABS: Absolute Lymphocyte Count 2.08 X10^3/uL (0.83-4.51); Absolute Neutrophil Count 5.3 X10^3/uL (2.0-7.7); Basophil# 0.05 X10^3/uL; Basophil% 0.6 % (0-1); Eosinophil# 0.24 X10^3/uL; Eosinophils% 2.8 % (0-5); Hematocrit 47.2 % (40-54); Hemoglobin 15.3 g/dL (13.0-16.5); Lymphocyte # 2.08 X10^3/ul (0.83-4.51); Lymphocyte % 24.6 % (19-41); Mean Corp Hgb Conc 32.4 g/dL (32-36); Mean Corpuscular Hgb 29.7 pg (27.0-32.0); Mean Corpuscular Volume 91.5 fL (80-94); Mean Platelet Vol. 11.1 fl (6.2-12.0); Monocyte# 0.82 X10^3/uL; Monocyte% 9.7 % (0-10); NRBC Flagged by Analyzer 0 % (0-5); Neutrophil # 5.25 X10^3/uL (2.7-7.7); Neutrophil % 62.1 % (47-70); Platelet Count 148 K/mm3 (150-450); RBC Distribution Width CV 13.2 % (11.6-14.6); RBC Distribution Width SD 45.1 fl (35.1-43.9); Red Blood Count 5.16 M/mm3 (4.6-6.2); White Blood Count 8.5 K/mm3 (4.4-11.0)
[2024-04-23 17:31] LABS: Anion Gap 6 (5-15); BUN 27 mg/dL (7-18); BUN/Creat Ratio 16.5 RATIO (10-20); Calcium,Total 9.2 mg/dL (8.5-10.1); Chloride 106 mmol/L (98-107); Creatinine, Serum 1.64 mg/dL (0.70-1.30); EST Glomerular Filtration Rate 43 mL/min (>60); Est Glom Filt Rate - Afr Amer 52 mL/min (>60); Estimated Creatinine Clearance 32.93 ml/min; Glucose 99 mg/dL (74-106); International Normalized Ratio 2.2; Potassium 4.4 mmol/L (3.5-5.1); Prothrombin Time (Protime)PT. 24.5 SECONDS (11.7-14.9); Sodium Level 140 mmol/L (136-145); Troponin-I HS 28 pg/mL (3.0-78.0)
[2024-04-23 17:32] LABS: Partial Thromboplast Time 40.6 Seconds (24.1-36.2)
--- NOTE | 2024-04-23 17:39 | EDS_ITS ---
HPI History of Present Illness Chief Complaint: Neuro S/Sx Narrative Narrative: Chief complaint and HPI: Strokelike symptoms. 83-year-old male with past medical history of TIA, CABG on warfarin, HTN, history of DVT presents for evaluation of strokelike symptoms. Last known normal was 1625. states she heard the patient coughing in his chair when she noticed that he had a left- sided facial droop and dysarthria. She called EMS. On EMS arrival, patient had weakness in the left upper extremity, left-sided facial droop, and dysarthria. Patient arrived as a stroke alert. I immediately saw him in the hallway prior to imaging. At that time, patient's symptoms were improving per EMS. Patient taken immediately to the CT scanner. Glucose was normal. Review of systems: See HPI Medications: As listed on the chart Allergies: As listed on the chart PFSH: Per chart Vital signs: As listed on the chart. Reviewed. Physical exam: Gen: A&O x3, NAD Head: Normocephalic, atraumatic Eyes: No sclera icterus, conjunctiva clear, PERRL, EOMI ENT: Moist mucous membranes, mild left-sided facial droop with smile Neck: Trachea midline, No JVD CV: RRR, no murmurs, no peripheral edema Resp: Lungs CTA BL, no w/r/c GI: Abd soft, non-distended, non-tender, no r/r/g Musc: Full ROM, no deformity, strength +5/5 in all extremities, mild left-sided pronator drift, mild left upper extremity ataxia with [id number] testing Skin: Warm, dry, intact Neuro: Alert, oriented, grossly intact, sensation intact, no focal deficits, no aphasia, mild dysarthria, NIH 4 Psych: Cooperative, appropriate mood and affect [facility] Medical History Spinal stenosis of lumbar region with neurogenic claudication Other intervertebral disc degeneration, lumbar region Dizziness Pure hypercholesterolemia Essential 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 History of kidney stones Nephrolithiasis 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 Chronic systolic (congestive) heart failure Ischemic cardiomyopathy History of bacterial endocarditis BPH (benign prostatic hyperplasia) Atherosclerotic heart disease of [place] coronary artery without angina pectoris History of TIA (transient ischemic attack) COPD (chronic obstructive pulmonary disease) Home Medications ?Medication ?Instructions ?Recorded ?Last Taken ?Type pravastatin 40 mg tablet 40 mg PO QHS cholesterol 04/29/16 04/15/18 History aspirin 81 mg chewable tablet 81 mg PO DAILY #30 tabs 05/24/18 02/25/20 Rx nitroglycerin 0.4 mg sublingual 0.4 mg sublingual Q5-15M PRN chest 10/13/20 Unknown Rx tablet pain #25 tabs brimonidine 0.2 % eye drops 1 drp ophthalmic (eye) BID 08/02/22 Unknown History albuterol sulfate 90 mcg/actuation 1 puff inhalation Q4H PRN PRN 12/15/23 Unknown History aerosol inhaler wheezing warfarin 2 mg tablet 2 mg PO .COMPLEX 01/23/24 Unknown History sacubitril 24 mg-valsartan 26 mg 0.5 tab PO .COMPLEX #90 tabs 03/08/24 Unknown Rx tablet (Entresto) bromfenac 0.075 % eye drops 1 drp RIGHT EYE DAILY 04/23/24 Unknown History (BromSite) furosemide 20 mg tablet 20 mg PO BID 04/23/24 Unknown History latanoprost 0.005 % eye drops drp ophthalmic (eye) 04/23/24 Unknown History levothyroxine 75 mcg tablet 75 mcg PO DAILY 04/23/24 Unknown History ofloxacin 0.3 % eye drops 1 drp ophthalmic (eye) 4X/DAY 04/23/24 Unknown History Allergy/AdvReac Type Severity Reaction Status Date / Time amlodipine AdvReac Mild headaches Verified 03/20/24 14:06 Family History Father , age 70 Colon cancer Mother Myocardial infarction CAD (coronary artery disease) Brother CAD (coronary artery disease) Myocardial infarction Brother CAD (coronary artery disease) Myocardial infarction Surgical History History of tonsillectomy History of coronary artery bypass graft x 2 (~01/14/11) History of right and left heart catheterization Social History Smoking Status: Former smoker quit date: 07/25/72 alcohol intake: current alcohol intake frequency: holidays/special occasions only substance use type: does not use caffeine: No EXAM Physical Exam Const Vital Signs: 04/23/24 16:59 04/23/24 17:06 04/23/24 17:07 Temperature 98.2 F Temperature Source Oral Pulse Rate 79 Respiratory Rate 17 Blood Pressure 172/96 H Blood Pressure Mean 121 Pulse Ox 97 98 Oxygen Delivery Method Room Air Room Air 04/23/24 17:36 04/23/24 17:58 04/23/24 18:29 Temperature Temperature Source Pulse Rate 73 76 76 Respiratory Rate 17 19 H 18 Blood Pressure 154/92 H 173/92 H 157/118 H Blood Pressure Mean 112 119 131 Pulse Ox 97 98 97 Oxygen Delivery Method Room Air Room Air Room Air 04/23/24 18:59 04/23/24 19:30 04/23/24 20:00 Temperature Temperature Source Pulse Rate 61 68 79 Respiratory Rate 18 20 H 22 H Blood Pressure 133/79 H 152/69 H 131/69 H Blood Pressure Mean 97 96 89 Pulse Ox 99 96 Oxygen Delivery Method Room Air Room Air 04/23/24 20:30 04/23/24 20:31 04/23/24 21:00 Temperature 98.7 F Temperature Source Pulse Rate 67 69 69 Respiratory Rate 20 H 16 23 H Blood Pressure 141/60 H 146/60 H 136/65 H Blood Pressure Mean 87 88 88 Pulse Ox 94 95 99 Oxygen Delivery Method Room Air Room Air 04/23/24 21:30 04/23/24 22:00 04/23/24 22:30 Temperature Temperature Source Pulse Rate 66 71 72 Respiratory Rate 20 H 24 H 19 H Blood Pressure 145/64 H 127/83 H 140/90 H Blood Pressure Mean 91 97 106 Pulse Ox 99 97 96 Oxygen Delivery Method Room Air Room Air Room Air 04/23/24 23:00 Temperature Temperature Source Pulse Rate 61 Respiratory Rate 17 Blood Pressure 121/89 H Blood Pressure Mean 99 Pulse Ox 96 Oxygen Delivery Method Room Air MDM MDM MDM Narrative Medical decision making narrative: 83-year-old male with history of TIA, CABG/DVT on warfarin presents for evaluation of strokelike symptoms. Patient arrived as a stroke alert. Was seen immediately in the hallway prior to CT. NIH 4. Symptoms are improving per EMS. Stroke workup ordered. NS bolus ordered. 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 No acute bleed. CTA neck and head shows mild to moderate atherosclerotic changes without evidence for hemodynamically significant stenosis or LVO. Patient is on warfarin and INR 2.2. Patient is not a tPA candidate. Neurology agrees. His symptoms are already improving. CBC relatively unremarkable. BMP shows baseline CKD with a creatinine of 1.64. Troponin unremarkable. Patient was evaluated by [facility] stroke neurology Dr. Rivas. He is concerned about significant carotid stenosis on the right. He states he thinks this is what is causing the patient's recurrent right-sided CVAs. He recommends transfer to [facility] for surgical repair and further workup. Patient failed swallow exam and unable to take oral aspirin. Okay per neurology. Patient will be transferred to [facility]. Patient and family confirmed understand of the plan. EKG: Interpreted by me/EM physician: EKG shows atrial fibrillation with lots of artifact, heart rate 82, no STEMI Diagnostic: Interpreted by me/EM physician: Chest x-ray without pneumonia, effusion, pneumothorax Impression: 1. Suspected right-sided CVA 2. CKD Lab Data Labs: Laboratory Results - last 24 hr 04/23/24 17:00 WBC 8.5 RBC 5.16 Hgb 15.3 Hct 47.2 MCV 91.5 MCH 29.7 MCHC 32.4 RDW Std Deviation 45.1 H RDW Coeff of [place] 13.2 Plt Count 148 L MPV 11.1 Immature Gran % (Auto) 0.200 Neut % (Auto) 62.1 Lymph % (Auto) 24.6 Bonner % (Auto) 9.7 Eos % (Auto) 2.8 Baso % (Auto) 0.6 Absolute Neuts (auto) 5.3 Absolute Lymphs (auto) 2.08 Nucleated RBC % 0 PT 24.5 H INR 2.2 APTT 40.6 H Sodium 140 Potassium 4.4 Chloride 106 Carbon Dioxide 28.0 Anion Gap 6 BUN 27 H Creatinine 1.64 H Estim Creat Clear Calc 32.93 Est GFR (MDRD) Af Amer 52 L Est GFR (MDRD) Non-Af 43 L BUN/Creatinine Ratio 16.5 Glucose 99 Calcium 9.2 Troponin I High Sens 28 Radiography Diagnostic Testing: Clinical Impression(s) from Imaging Studies Brain CT 04/23/24 17:06 IMPRESSION: Moderate atrophy and 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 No acute bleed. If concern for acute infarct MRI recommended. N.B. : The above Results were Read Back by Sunny Phan MD to Hermelindo Hawkins DO, and understanding confirmed on 04/23/2024 17:23:37 (ET). 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 No acute bleed. If concern for acute infarct MRI recommended. N.B. : The above Results were Read Back by Sunny Phan MD to Hermelindo Hawkins DO, and understanding confirmed on 04/23/2024 17:23:37 (ET). Electronically Signed: Sunny Phan MD at 17:25 EDT , Head/Neck CTA 04/23/24 17:09 IMPRESSION: Mild to moderate atherosclerotic changes without evidence for hemodynamically significant stenosis or major vessel occlusion Electronically Signed: Sunny Phan MD at 17:57 EDT , Chest X-Ray 04/23/24 18:02 IMPRESSION: Elevated right hemidiaphragm and mild basilar atelectasis.. Electronically Signed: Sunny Phan MD at 18:36 EDT , Discharge Plan Triage Chief Complaint: Neuro S/Sx ED Provider: Hermelindo Hawkins Dx/Rx/DC Orders Prescriptions: No Action aspirin 81 mg tablet,chewable 81 mg PO DAILY Qty: 30 0RF brimonidine 0.2 % drops 1 drp ophthalmic (eye) BID Rx Instructions: one drop bid in right eye pravastatin 40 MG tablet 40 mg PO QHS latanoprost 0.005 % drops ophthalmic (eye) ofloxacin 0.3 % drops 1 drp ophthalmic (eye) 4X/DAY levothyroxine 75 mcg tablet 75 mcg PO DAILY furosemide 20 mg tablet 20 mg PO BID bromfenac [BromSite] 0.075 % drops 1 drp RIGHT EYE DAILY albuterol sulfate 90 mcg/actuation HFA aerosol inhaler 1 puff inhalation Q4H PRN PRN (Reason: wheezing) nitroglycerin 0.4 mg tablet, sublingual 0.4 mg SUBLINGUAL Q5-15M PRN (Reason: chest pain) Qty: 25 3RF warfarin 2 mg tablet 2 mg PO .COMPLEX Protocol: Dose Management Condition: Tuesday Dose/Route: 2 mg Instruction: 1 x 2 mg tablet Condition: Tuesday Dose/Route: 3 mg Instruction: 1.5 x 2 mg tablets Condition: Tuesday Dose/Route: 3 mg Instruction: 1.5 x 2 mg tablets Condition: Tuesday Dose/Route: 3 mg Instruction: 1.5 x 2 mg tablets Condition: Dose/Route: 3 mg Instruction: 1.5 x 2 mg tablets Condition: Tuesday Dose/Route: 2 mg Instruction: 1 x 2 mg tablet Condition: Tuesday Dose/Route: 2 mg Instruction: 1 x 2 mg tablet Protocol Text: Adjustment Start Date: Tuesday03/30/24 INR Value: 2.2 INR Date: 03/30/24 Recheck Date: 04/29/24 Rx Instructions: 2 mg orally 1.5 tablets (3mg) on Tue, , , and 1 tablet (2mg) on Tue, Tue and Tue; or as directed; Entresto 24-26 mg tablet 0.5 tab PO .COMPLEX Qty: 90 3RF Rx Instructions: 0.5 tabs orally twice daily: YES pt to take 1/2 tablet twice daily due to low BP but needs for CHF; Primary Care Provider: Pal Yan NP Referrals: Pal Yan NP, NURSING SERVICES MANAGER-C [Primary Care Provider] - Print Language: Bulgarian Disposition Disposition: Acute Care Hospital Discharge Location: [facility] Discharge Date/Time: 04/23/24 23:30
[2024-04-23] MEDS: 0.9% Normal Saline (1000mL) 1,000 ML 999 ML IV (17:41)
--- NOTE | 2024-04-23 17:56 | ED.RN ---
IV INFLITRATED IN CT. IV NOW OUT WARM COMPRESS APPLIED
--- NOTE | 2024-04-23 18:02 | RAD_ITS ---
STUDY: X-RAY CHEST REASON FOR EXAM: Male, 83 years old. NEURO DEFICIT,ACUTE,STROKE SUSPECTED TECHNIQUE: AP portable COMPARISON: December 15, 2023. FINDINGS: Elevated right hemidiaphragm and mild right basilar atelectasis.. There is no demonstrated pleural abnormality. Postop change status post median sternotomy and CABG. Heart is enlarged.. Normal mediastinum and giovanni. Normal visualized pulmonary arteries. Normal visualized aortic arch and descending thoracic aorta. Normal visualized thoracic spine. Normal visualized ribs, clavicles, and shoulders. There is no demonstrated abnormality of the visualized soft tissue structures of the upper abdomen. RAD/Chest 1 View IMPRESSION: Elevated right hemidiaphragm and mild basilar atelectasis.. Electronically Signed: Sunny Phan MD at 18:36 EDT ,
--- NOTE | 2024-04-23 18:06 | NURSING ---
[facility] NOT FLYING PHYSICIANS OK TO OUTSOURCE DUE TO URGENCY OF TRANSFER
--- NOTE | 2024-04-23 18:14 | NURSING ---
[facility] ETA [id number]
[2024-04-23] MEDS: 0.9% Normal Saline (1000mL) 1,000 ML 100 ML IV (19:18)
--- NOTE | 2024-04-23 20:30 | ED.RN ---
COMPLETED NIHSS REASSESSMENT W/ PROVIDER SEE 2030 DOCUMENTATION.
--- NOTE | 2024-04-23 22:48 | ED.RN ---
Pt. voiced concerns stating, I have been here since almost two and you guys aren't doing anything for me. Pt. informed he is waiting on transportation arrival at 2300. He was also updated that initial line for transfer was via helicopter, but they were unable to d/t weather conditions.
--- NOTE | 2024-04-23 23:16 | ED.RN ---
REPORT GIVEN TO [facility]
== END 2024-04-23 23:30 | disposition short-term general hospital (02) ==
PROVIDERS: Emergency Provider Surgery; PCP Nurse Practitioner Primary Care; Visit Provider Surgery
DX: I65.21 Occlusion and stenosis of right carotid artery (principal); I13.0 Hypertensive heart and chronic kidney disease with heart failure and stage 1 through stage 4 chronic kidney disease, or unspecified chronic kidney disease; I50.22 Chronic systolic (congestive) heart failure; J44.9 Chronic obstructive pulmonary disease, unspecified; I48.91 Unspecified atrial fibrillation; R29.810 Facial weakness; I25.5 Ischemic cardiomyopathy; R47.1 Dysarthria and anarthria; R29.704 NIHSS score 4; R27.0 Ataxia, unspecified; R29.898 Other symptoms and signs involving the musculoskeletal system; N18.9 Chronic kidney disease, unspecified; E78.00 Pure hypercholesterolemia, unspecified; M51.36 Other intervertebral disc degeneration, lumbar region; M48.062 Spinal stenosis, lumbar region with neurogenic claudication; Z95.1 Presence of aortocoronary bypass graft; Z86.73 Personal history of transient ischemic attack (TIA), and cerebral infarction without residual deficits; Z79.01 Long term (current) use of anticoagulants; Z79.82 Long term (current) use of aspirin; Z86.718 Personal history of other venous thrombosis and embolism; Z79.899 Other long term (current) drug therapy; Z87.891 Personal history of nicotine dependence
CPT/HCPCS: 70450; 70496; 70498; 71045; 80048; 84484; 85025; 85610; 85730; 93005; 96360; 96361; 99285; J7030; Q9967; A4216